=== PATIENT | male | born 1945 | race Two or more races ===

== ENCOUNTER → 2016-11-07 | Outpatient (REF) | payer BC, MEDICARE, OTHER ==
[2016-11-07 18:46] LABS: MEAN CORPUSCULAR HEMOGLOBIN 30.4 pg (27.0-33.0); MEAN CORPUSCULAR HGB CONC 31.7 g/dl (32.0-36.5); MEAN CORPUSCULAR VOLUME 95.8 fl (80.0-96.0); RED CELL DISTRIBUTION WIDTH 14.1 % (11.5-14.5); WHITE BLOOD COUNT 4.8 K/mm3 (4.0-10.0)
[2016-11-07 20:16] LABS: ALBUMIN 3.1 GM/DL (3.2-5.2); ALBUMIN/GLOBULIN RATIO 0.78 (1.00-1.93); ALKALINE PHOSPHATASE 146 U/L (45-117); ALT/SGPT 37 U/L (12-78); ANION GAP 7 MEQ/L (8-16); AST/SGOT 17 U/L (15-37); BILIRUBIN,TOTAL 0.8 MG/DL (0.2-1.0); BLOOD UREA NITROGEN 15 MG/DL (7-18); CALCIUM LEVEL 8.8 MG/DL (8.8-10.2); CARBON DIOXIDE LEVEL 30 MEQ/L (21-32); CHLORIDE LEVEL 106 MEQ/L (98-107); CHOLESTEROL LEVEL 110 MG/DL (<200); CREATININE FOR GFR 1.16 MG/DL (0.70-1.30); GLOMERULAR FILTRATION RATE > 60.0 (>42); GLUCOSE, FASTING 77 MG/DL (83-110); SODIUM LEVEL 143 MEQ/L (136-145); TOTAL PROTEIN 7.1 GM/DL (6.4-8.2); TRIGLYCERIDES LEVEL 48 MG/DL (<150)
== END ==
LOC: M SFHCLERA 11:02
PROVIDERS: ATTEND Family Medicine
DX: I10 Essential (primary) hypertension (principal)

== ENCOUNTER → 2016-11-14 | Outpatient (CLI) | payer BC, MEDICARE, OTHER ==
--- NOTE | 2016-11-14 13:32 | REP ---
SOFT-TISSUE NECK ULTRASOUND: 11/14/2016 CLINICAL HISTORY: Enlarged lymph nodes in the submandibular and anterior cervical region, left greater than right. Pain radiating up to the ear. Chronic smoking history. No prior study. FINDINGS: In the left neck, there is a finding 1.4 x 0.7 x 0.5 cm representing a node. On the right, there is a 2.1 x 1 x 0.4 cm lymph node. Left thyroid lobe adjacent to this lymph node shows a solid nodule 12 x 11 x 8 mm and a cystic nodule 5 x 4 mm. In the lower pole is another 6 x 5 x 4 mm nodule. IMPRESSION: 1. One enlarged node anteriorly in the right 2.1 x 1 x 0.4 cm and on the left 1.4 x 0.7 x 0.5 cm. 2. Incidental note of some solid masses and a small cystic area in the left lobe of the thyroid. Suggest thyroid ultrasound for further evaluation if not done previously. There are no other studies here. Signed by Bulmaro Roland MD 11/14/2016 05:44 P
== END ==
LOC: M LRY 09:07
PROVIDERS: ATTEND Family Medicine
DX: E04.1 Nontoxic single thyroid nodule (principal); R59.9 Enlarged lymph nodes, unspecified; I10 Essential (primary) hypertension

== ENCOUNTER → 2016-12-28 | Outpatient (CLI) | payer BC, OTHER | LOC: M LRY 11:09 | PROVIDERS: ATTEND Family Medicine | DX: R93.8 Abnormal findings on diagnostic imaging of other specified body structures (principal) ==

== ENCOUNTER → 2017-01-02 | Outpatient (CLI) | payer BC, OTHER | LOC: M RAD 09:36 | PROVIDERS: ATTEND Family Medicine | DX: K46.9 Unspecified abdominal hernia without obstruction or gangrene (principal); K86.2 Cyst of pancreas; K40.20 Bilateral inguinal hernia, without obstruction or gangrene, not specified as recurrent ==

== ENCOUNTER → 2017-01-04 | Outpatient (CLI) | payer BC, OTHER | LOC: M RAD 08:32 | PROVIDERS: ATTEND Family Medicine | DX: Z12.2 Encounter for screening for malignant neoplasm of respiratory organs (principal); F17.210 Nicotine dependence, cigarettes, uncomplicated; R91.1 Solitary pulmonary nodule ==

== ENCOUNTER 2017-05-21 10:52 | Inpatient (IN) | payer BC, OTHER ==
[~2017-05-21] VITALS: Ht 177.8 cm; Wt 73.7 kg
[2017-05-21] MEDS ORDERED: CREO12CA PO (11:04)
[2017-05-21] MEDS ORDERED: INSULANT SQ (11:04)
[2017-05-21] MEDS ORDERED: MULT1CHW39 PO (11:04)
[2017-05-21] MEDS ORDERED: PRAV20TA2 PO (11:04)
[2017-05-21] MEDS ORDERED: ASPI81TA18 PO (11:04)
[2017-05-21] MEDS ORDERED: HYDR-3713 PO (11:04)
[2017-05-21] MEDS ORDERED: ALPR0.25 PO (11:04)
[2017-05-21] MEDS ORDERED: POTA20TA6 PO (11:04)
[2017-05-21] MEDS ORDERED: LISINOPRIL-HCTZ (11:04)
[2017-05-21] MEDS ORDERED: TYLE325C PO (11:08)
[2017-05-21] MEDS ORDERED: ACETAMINOPHEN TAB 650MG DOSE (2X325MG) PO ONE (12:30)
[2017-05-21] MEDS ORDERED: TYLE325T5 PO (12:33)
--- NOTE | 2017-05-21 12:34 | REP ---
PORTABLE CHEST X-RAY: Single view. HISTORY: Altered mental status. Comparison is made with chest CT from January 04, 2017. FINDINGS: There is a calcified granuloma in the left mid lung zone unchanged. Lungs are otherwise well inflated and free of infiltrate. Left hemidiaphragm is slightly elevated. Pleural angles are sharp. Heart is not felt to be enlarged. IMPRESSION: Old granuloma on the left. No active disease. Signed by David Dimas MD 05/21/2017 02:47 P
[2017-05-21 12:53] LABS: ADD MANUAL DIFFER YES; DIFF SLIDE NUMBER 185; MEAN CORPUSCULAR HEMOGLOBIN 31.3 pg (27.0-33.0); MEAN CORPUSCULAR HGB CONC 33.8 g/dl (32.0-36.5); MEAN CORPUSCULAR VOLUME 92.6 fl (80.0-96.0); RED CELL DISTRIBUTION WIDTH 13.8 % (11.5-14.5)
[2017-05-21 13:05] LABS: ALBUMIN 2.8 GM/DL (3.2-5.2); ALBUMIN/GLOBULIN RATIO 0.67 (1.00-1.93); ALKALINE PHOSPHATASE 105 U/L (45-117); ALT/SGPT 29 U/L (12-78); ANION GAP 6 MEQ/L (8-16); AST/SGOT 18 U/L (15-37); BILIRUBIN,DIRECT 0.5 MG/DL (0.0-0.2); BILIRUBIN,TOTAL 1.5 MG/DL (0.2-1.0); BLOOD UREA NITROGEN 36 MG/DL (7-18); CALCIUM LEVEL 8.5 MG/DL (8.8-10.2); CARBON DIOXIDE LEVEL 28 MEQ/L (21-32); CHLORIDE LEVEL 104 MEQ/L (98-107); CREATININE FOR GFR 1.48 MG/DL (0.70-1.30); GLUCOSE, FASTING 236 MG/DL (83-110); POTASSIUM SERUM 4.1 MEQ/L (3.5-5.1); SODIUM LEVEL 138 MEQ/L (136-145)
[2017-05-21] MEDS ORDERED: NS 1,000 ML IV SCH (13:12)
[2017-05-21 13:24] LABS: PLATELET COUNT, AUTOMATED 54 k/mm3 (150-450)
[2017-05-21 13:26] LABS: BANDS 1 % (< 11)
[2017-05-21] MEDS ORDERED: ACET50TAOT PO (14:39)
[2017-05-21] MEDS ORDERED: MULT1TAB28 PO (14:43)
[2017-05-21] MEDS ORDERED: LISI20TA PO (14:46)
[2017-05-21] MEDS ORDERED: ADVA115A INH (14:48)
[2017-05-21] MEDS ORDERED: VITA10006 PO (14:48)
[2017-05-21] MEDS ORDERED: ALBU17IN INH (14:48)
[2017-05-21] MEDS ORDERED: GLUCAGON FOR INJ 1 MG VIAL (J1610) SC PRN (16:45)
[2017-05-21] MEDS ORDERED: DEXTROSE 50% 50 ML SYRINGE IV PRN (16:45)
[2017-05-21] MEDS ORDERED: ONDANSETRON 4MG/2ML VIAL (J2405) IV PRN (16:45)
[2017-05-21] MEDS ORDERED: ALBUTEROL 90 MCG/ACT 8GM HFA INHALER INH PRN (16:45)
[2017-05-21] MEDS ORDERED: GLUCOSE 4 GM CHEW TABLET PO PRN (16:45)
[2017-05-21] MEDS ORDERED: ADVAIR HFA 115/21MCG INHALER INH PRN (16:45)
[2017-05-21] MEDS ORDERED: NORCO, ANEXSIA 5/325MG TABLET (HYDROcodone/ACETAMINOPHEN) PO PRN (16:45)
[2017-05-21] MEDS ORDERED: ALPRAZolam 0.25 MG TAB PO PRN (16:45)
[2017-05-21] MEDS ORDERED: NICOTINE 21MG/24HR 1 EA TRANSDERMAL TD ONE (16:45)
[2017-05-21] MEDS ORDERED: ISOVUE-370 76% 100ML VIAL (Q9967) As Ordered ONE (16:49)
[2017-05-21 17:23] LABS: INR 1.33
[2017-05-21 17:27] LABS: CONTROL LINE INT CTR LINE PRESENT; HIV SCRN NEGATIVE (NEGATIVE); HIV SCRN1 NEGATIVE (NEGATIVE)
[2017-05-21] MEDS: HumaLOG INSULIN (NovoLOG) PER UNIT SC SCH ×2 (17:30→21:00)
[2017-05-21 17:38] LABS: REASON FOR REVIEW COMPREHENSIVE REVIEW
--- NOTE | 2017-05-21 17:49 | REP ---
CT abdomen and pelvis with IV, but without oral contrast: History: History of pancreatitis. Elevated bilirubin. CT contrast dose: 100 ml of intravenous Isovue 370. No comparison CT study. Findings: The lung bases are clear. There is no evidence of pleural effusion or upper abdominal ascites. The spleen is enlarged measuring 15.7 cm in greatest dimension. It is homogeneous in texture. The liver is not enlarged. There is some mild intrahepatic biliary ductal dilation. The common bile duct is dilated measuring up to 13 mm in greatest diameter. Pancreatic head and body are somewhat prominent in size with multiple calcifications consistent with chronic pancreatitis. No pancreatic mass lesion is seen. The pancreatic tail appears to be atrophic. There are numerous venous collaterals in the left upper quadrant consistent with portal hypertension. The portal vein itself is somewhat dilated also consistent with portal hypertension. It measures 2.3 cm in AP dimension. There is left adrenal hyperplasia. No definite mass lesion is seen. There are collateral vessels in the periaortic fat as well. No adenopathy is seen. Small and large intestinal bowel loops are unremarkable. A normal appendix is seen. There is a right inguinal hernia, which transmits the anterolateral aspect of the bladder. The prostate is moderately enlarged and calcific. There is a 6.6 cm simple cyst in the left kidney. The kidneys are otherwise unremarkable. No bony destructive lesion is seen. Impression: 1. Evidence of chronic pancreatitis with multiple calcifications and mild enlargement of the pancreatic head. Atrophy of the pancreatic tail. No pseudocyst or obvious mass lesion. 2. 13 mm common bile duct post cholecystectomy consistent with mild biliary ductal dilation. 3. Evidence of portal hypertension with splenomegaly and prominent left upper quadrant venous collaterals, and dilation of the portal vein. 4. Left adrenal hyperplasia. 5. 6.6 cm cyst left kidney. 6. Right inguinal hernia transmitting the anterolateral aspect of the urinary bladder. Signed by David Dimas MD 05/21/2017 06:40 P
--- NOTE | 2017-05-21 18:00 | REP ---
Urinary tract sonography: History: Acute kidney insufficiency. Comparison study: January 02, 2017. Findings: Scanning at the level of the urinary bladder demonstrates a prominent prostate gland. No bladder abnormality. Renal cortical echogenicity pattern is increased consistent with chronic medical renal disease. No hydronephrosis or mass is seen. There is a 6.5 x 6.2 x 7.0 cm cyst in the periphery of the left mid kidney. The left kidney measures 12.4 x 5.2 x 5.1 cm, exclusive of the cyst. Right renal dimensions are 10.5 x 4.7 x 5.1 cm. Impression: Increased renal cortical echogenicity pattern consistent with medical renal disease. 7.0 cm cyst left kidney. Enlarged prostate. No hydronephrosis seen. Otherwise negative. Signed by David Dimas MD 05/21/2017 06:40 P
[2017-05-21] MEDS: ACETAMINOPHEN TAB 650MG DOSE (2X325MG) PO PRN (18:41)
[2017-05-21] MEDS: CREON-12 CAPSULE PO SCH (19:22)
[2017-05-21] MEDS: NS 1,000 ML IV SCH ×2 (20:57→23:25)
[2017-05-21] MEDS: LEVEMIR (INSULIN DETEMIR) 1 UNITS/0.01ML SQ SCH (21:00)
[2017-05-21 22:00] VITALS: BP 136/76
[2017-05-21] MEDS: ASCORBIC ACID 500 MG TAB PO SCH (22:06)
[2017-05-21] MEDS: OCUVITE 1 TAB PO SCH (22:06)
[2017-05-21] MEDS: SENOKOT S TAB PO SCH (22:06)
[2017-05-21 23:08] LABS: REASON FOR REVIEW COMPREHENSIVE REVIEW
[2017-05-22 06:00] VITALS: BP 165/71
[2017-05-22 07:06] LABS: MEAN CORPUSCULAR HEMOGLOBIN 32.1 pg (27.0-33.0); MEAN CORPUSCULAR HGB CONC 34.7 g/dl (32.0-36.5); MEAN CORPUSCULAR VOLUME 92.4 fl (80.0-96.0); RED CELL DISTRIBUTION WIDTH 13.6 % (11.5-14.5); WHITE BLOOD COUNT 4.1 K/mm3 (4.0-10.0)
[2017-05-22 07:23] LABS: ALBUMIN 2.5 GM/DL (3.2-5.2); ALBUMIN/GLOBULIN RATIO 0.69 (1.00-1.93); ALKALINE PHOSPHATASE 108 U/L (45-117); ALT/SGPT 29 U/L (12-78); ANION GAP 6 MEQ/L (8-16); AST/SGOT 23 U/L (15-37); BILIRUBIN,TOTAL 1.4 MG/DL (0.2-1.0); BLOOD UREA NITROGEN 32 MG/DL (7-18); CALCIUM LEVEL 7.9 MG/DL (8.8-10.2); CARBON DIOXIDE LEVEL 30 MEQ/L (21-32); CHLORIDE LEVEL 105 MEQ/L (98-107); CREATININE FOR GFR 1.24 MG/DL (0.70-1.30); GLOMERULAR FILTRATION RATE > 60.0 (>42); GLUCOSE, FASTING 173 MG/DL (83-110); MAGNESIUM LEVEL 2.2 MG/DL (1.8-2.4); SODIUM LEVEL 141 MEQ/L (136-145); TOTAL PROTEIN 6.1 GM/DL (6.4-8.2)
[2017-05-22] MEDS: HumaLOG INSULIN (NovoLOG) PER UNIT SC SCH ×4 (07:30→21:00)
--- NOTE | 2017-05-22 07:42 | HPE ---
DATE OF ADMISSION: 05/22/2017 PRIMARY CARE PROVIDER: Dr. Shaun Knight CHIEF COMPLAINT: Fevers and rigors. HISTORY OF PRESENT ILLNESS: This is a 71-year-old male patient with underlying medical history of dyslipidemia, hypertension, diabetes type 2 and chronic pancreatitis who presented to the hospital with rigors and chills since Sunday with high fevers at home. He denies any chest pain, pressure or discomfort. No dysuria, coughing, or shortness of breath. Denies any rash, abdominal pain, nausea or vomiting, no diarrhea. No source of infection. He does report one of the family members with a upper respiratory infection (URI). The patient is an active smoker. ALLERGIES: CODEINE. PAST MEDICAL HISTORY: 1. Hypertension. 2. Dyslipidemia. 3. Diabetes. 4. Chronic pancreatitis with pancreatic pseudocyst and calcifications. 5. Multiple abdominal surgeries in the past 2007. PAST SURGICAL HISTORY: 1. Cholecystectomy. 2. Tonsillectomy. 3. Abdominal surgery due to pancreatitis. FAMILY HISTORY: Noncontributory. SOCIAL HISTORY: The patient smokes 1-1/2 packs of cigarettes per day for 50 years. Denies alcohol drinking. REVIEW OF SYSTEMS: Report of fevers and rigors. All other review of systems negative. HOME MEDICATIONS: - acetaminophen 500 mg by mouth every 6 hours as needed - acetaminophen hydrocodone one tablet by mouth every 12 hours taken as needed - Ventolin inhalers every 4 hours as needed - Xanax 0.25 1/2 tablet by mouth daily taken as needed - vitamin C 1000 mg by mouth daily - aspirin 81 mg by mouth daily - Lantus 30 mg subcutaneous every evening - lisinopril hydrochlorothiazide 20/12.5 mg by mouth daily - multivitamin one tablet by mouth daily - pancreatic enzyme 24,000 units by mouth as directed - potassium chloride 20 mEq by mouth daily with food - pravastatin 20 mg by mouth every evening - Advair inhaler twice a day as needed PHYSICAL EXAMINATION: VITAL SIGNS: Temperature maximum (T-max) 104, temperature current (T-current) 100.2, pulse 88, respirations 18, blood pressure 127/74, pulse oximetry 96% on room air. GENERAL: The patient is awake, alert and oriented times three. No acute distress. HEENT: Normocephalic atraumatic. PULMONARY: Bilaterally clear to auscultation. CARDIAC: Regular rate and rhythm, normal S1, S2. ABDOMEN: Soft, nontender, nondistended, positive bowel sounds. EXTREMITIES: No clubbing, cyanosis or edema. NEUROLOGIC: There is no focal deficit. LABORATORY DATA: WBC 5, hemoglobin 15.2, hematocrit 44.8, platelets 54. Sodium 138, potassium 4.1, chloride 104, bicarbonate 28, BUN 36, creatinine 1.48. A1c 8.1. Cardiac enzymes are negative times three. Ammonia 46. Total bilirubin 1.5, INR 1.33. AST, ALT and alkaline phosphatase was within normal limits. ASSESSMENT AND PLAN: This is a 71-year-old male patient with underlying medical history of chronic pancreatitis, hypertension, diabetes, dyslipidemia, chronic kidney disease (CKD), admitted with fevers and rigors. PROBLEMS: 1. Fevers and rigors. The patient is nontoxic appearing with stable vital signs. HIV has been negative. f/u respiratory panel Chest x-ray was within normal limits. CT of the abdomen was within normal limits, with no transaminitis. Will followup cultures. Will hold off on antibiotics given no source of infection has been detected. Likely viral illness. Intravenous (IV) fluids have been given. Respiratory panel. 2. Thrombocytopenia possibly related to chronic diseases. LDH was within normal limits. Followup haptoglobin. Although the patient denies alcohol use, this patient's history is strongly suspicious. Will follow peripheral smear. 3. Elevated bilirubin with no transaminitis. Will followup right upper quadrant ultrasound. CT scan is appreciated. The patient has history of cholecystectomy. Will continue to monitor. IV fluids have been ordered. 4. Chronic kidney disease (CKD): Followup renal ultrasound appreciated. No obstructive process. Urinalysis appreciated. IV fluids have been ordered. 5. Diabetes. Continue prior medications. 6. Chronic pancreatitis. Continue current medications. 7. Diabetes. Holding oral medications. Levemir at reduced dose. Mealtime protocol. 8. Smoking. Nicotine patch. Smoking cessation recommended. 9. Chronic pulmonary obstructive disease (COPD). Continue current medication. 10. Anxiety. Continue current medication. 11. Dyslipidemia. Continue current medication. 12. Deep venous thrombosis (DVT) prophylaxis. Venous compression device, avoid pharmacological agent given the patient is thrombocytopenic. DISPOSITION: Will continue to monitor pending further workup. [facility]
[2017-05-22] MEDS ORDERED: KETOROLAC 30 MG/ML VIAL (J1885) IV PRN (07:45)
[2017-05-22] MEDS: CREON-12 CAPSULE PO SCH ×4 (08:00→23:33)
[2017-05-22] MEDS: POTASSIUM CHLORIDE 10 MEQ SR TABLET PO SCH (09:21)
[2017-05-22] MEDS: SENOKOT S TAB PO SCH ×2 (09:21→21:18)
[2017-05-22] MEDS: OCUVITE 1 TAB PO SCH (09:22)
[2017-05-22] MEDS: ASCORBIC ACID 500 MG TAB PO SCH (09:22)
--- NOTE | 2017-05-22 09:33 | ECGEPIP ---
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
[2017-05-22] MEDS: PIPERACILLIN/TAZOBACTAM SOD 3.375 GM in D5W MINI-BAG PLUS 50 ML IV SCH ×3 (09:40→21:14)
--- NOTE | 2017-05-22 10:25 | REP ---
Right upper quadrant sonography: History: Right upper quadrant pain. Elevated bilirubin. Post cholecystectomy. Comparison CT study May 21, 2017. Findings: Scanning through the right upper quadrant of the abdomen demonstrates no visible intrahepatic ductal dilation. The pancreas is obscured by abdominal gas. The common bile duct is near the upper range of normal post cholecystectomy at 0.9 cm by ultrasound. No focal liver lesion is seen. There is a focal calcification in the right hepatic lobe. There is no evidence of ascites or right renal abnormality. The right kidney measures 10.6 x 4.7 x 4.9 cm. Some renal cortical thinning is seen. Impression: Pancreas not seen. Post cholecystectomy. CBD 9 mm which is the upper range of normal. Mild right renal cortical atrophy. Signed by David Dimas MD 05/22/2017 12:14 P
[2017-05-22] MEDS: NS 1,000 ML IV SCH ×3 (11:21→23:05)
[2017-05-22 15:15] VITALS: BP 143/72
--- NOTE | 2017-05-22 17:12 | IPN ---
DATE: 05/22/2017 Mr. Gar is having shaking chills. When I see him this morning, he has no complaints of pain. No cough, no abdominal pain, no dysuria, no diarrhea. Temperature 97.9, pulse 61, respiratory rate 18, blood pressure 165/71, 99% on room air. Body mass index (BMI) 23.4. He is awake, appropriately interactive, pleasantly conversant, a good historian. He shares with me the name of his previous primary care provider in [place]. Mucous membranes moist. Neck: Supple. Breathing is symmetrical. I:E ratio is 1:3. No wheezes, rales or rhonchi. Heart is distant sounding. Normal S1, S2. He is not tachycardic. Pulses 2+. Capillary refill is less than 2 seconds. He is warm to the touch. Abdomen: Soft, doughy, nontender. White cell count 4.1, hemoglobin 14.5, BUN 32, creatinine 1.24. Blood cultures were preliminarily positive for gram-negative rods. My assessment is as follows: This is a 71-year-old with suspected gram-negative bacteremia. Plan will be as follows: 1. Infectious disease. Will await further blood culture results. We have started the patient on Zosyn empirically. He apparently had a similar episode in the past. He has been seen an infectious disease doctor. I have asked for old records from [place]. He has no history of recent foreign travel. 2. History of hypertension. Blood pressure is reasonably well controlled at the present time. 3. The patient has dyslipidemia. 4. The patient has a history of diabetes. 5. The patient has chronic pancreatitis with pancreatic pseudocyst and calcification. Imaging shows no evidence of active pancreatitis or abscess. Physical exam is benign.
[2017-05-22] MEDS: LEVEMIR (INSULIN DETEMIR) 1 UNITS/0.01ML SQ SCH (21:00)
[2017-05-22] MEDS: PRAVASTATIN 20 MG TAB PO SCH (21:17)
[2017-05-22 22:00] VITALS: BP 139/65
[2017-05-23] MEDS: PIPERACILLIN/TAZOBACTAM SOD 3.375 GM in D5W MINI-BAG PLUS 50 ML IV SCH ×4 (02:22→20:11)
[2017-05-23 06:00] VITALS: BP 164/81
[2017-05-23] MEDS: ACETAMINOPHEN TAB 650MG DOSE (2X325MG) PO PRN (06:47)
[2017-05-23 07:23] LABS: MEAN CORPUSCULAR HEMOGLOBIN 31.5 pg (27.0-33.0); MEAN CORPUSCULAR VOLUME 92.7 fl (80.0-96.0); RED CELL DISTRIBUTION WIDTH 14.2 % (11.5-14.5)
[2017-05-23] MEDS: HumaLOG INSULIN (NovoLOG) PER UNIT SC SCH ×4 (07:30→21:53)
[2017-05-23 07:35] LABS: ALBUMIN 2.3 GM/DL (3.2-5.2); ALBUMIN/GLOBULIN RATIO 0.61 (1.00-1.93); ALKALINE PHOSPHATASE 143 U/L (45-117); ALT/SGPT 28 U/L (12-78); ANION GAP 3 MEQ/L (8-16); AST/SGOT 26 U/L (15-37); BLOOD UREA NITROGEN 26 MG/DL (7-18); CALCIUM LEVEL 7.7 MG/DL (8.8-10.2); CARBON DIOXIDE LEVEL 32 MEQ/L (21-32); CHLORIDE LEVEL 109 MEQ/L (98-107); CREATININE FOR GFR 1.08 MG/DL (0.70-1.30); GLOMERULAR FILTRATION RATE > 60.0 (>42); GLUCOSE, FASTING 85 MG/DL (83-110); MAGNESIUM LEVEL 2.3 MG/DL (1.8-2.4); POTASSIUM SERUM 3.4 MEQ/L (3.5-5.1); SODIUM LEVEL 144 MEQ/L (136-145); TOTAL PROTEIN 6.1 GM/DL (6.4-8.2)
[2017-05-23] MEDS: CREON-12 CAPSULE PO SCH ×3 (08:01→18:20)
[2017-05-23] MEDS: OCUVITE 1 TAB PO SCH (08:18)
[2017-05-23] MEDS: SENOKOT S TAB PO SCH ×2 (08:18→21:50)
[2017-05-23] MEDS: POTASSIUM CHLORIDE 10 MEQ SR TABLET PO SCH (08:18)
--- NOTE | 2017-05-23 08:18 | IPN ---
DATE: 05/23/2017 Mr. Gar is feeling much better than he did yesterday. No rigors or chills. He felt better after receiving Zosyn. No chest pain or shortness of breath. He says he has never had a colonoscopy. Temperature 99.1. Pulse 62. Respiratory rate 18. Blood pressure 164/81. 99% on room air. Ins and outs notable for a positive fluid balance of 1220. No bowel movements noted. Weight 74.2 kg. He is awake, appropriately interactive. Pleasantly conversant. Head is normocephalic. Mucous membranes are moist. Poor dentition. Neck supple. Breathing is symmetrical. I:E ratio is 1:3. Heart is a regular rate and rhythm. Normal S1, S2. Abdomen soft, doughy, nontender, with some prominence of his liver. No lower extremity edema. White cell count 3, hemoglobin 12.9, and platelets 46. Sodium 144, potassium 3.4, chloride 109, carbon dioxide 32, BUN 26, creatinine 1.08, glucose 85, magnesium level 2.3, total bilirubin 1.0. ASSESSMENT: This is a 71-year-old with suspected gram negative bacteremia. PLAN: 1. Infectious disease. Awaiting speciation on blood culture. Only 1 of 2 cultures is positive. He has improved symptomatically with the use of Zosyn. Have yet to receive old records from [place]. I have discussed this with the nursing staff today to attempt to obtain those today for further information about previous workups. He is also noted to have pancytopenia which is likely reactive based on the pathology results. 2. The patient has history of hypertension. Blood pressure is reasonably controlled. 3. The patient has acute renal failure which has resolved. 4. The patient has dyslipidemia. 5. The patient has history of diabetes. 6. The patient has chronic pancreatitis with pancreatic pseudocyst and calcification. Abdominal exam continues to be benign. 7. Deep vein thrombosis (DVT) prophylaxis, mechanical.
[2017-05-23] MEDS: ASCORBIC ACID 500 MG TAB PO SCH (08:19)
[2017-05-23] MEDS: NICOTINE 21MG/24HR 1 EA TRANSDERMAL TD SCH (09:38)
[2017-05-23] MEDS ORDERED: POTASSIUM CHLORIDE 10 MEQ SR TABLET PO ONE (12:00)
[2017-05-23 14:00] VITALS: BP 158/74
[2017-05-23] MEDS: LEVEMIR (INSULIN DETEMIR) 1 UNITS/0.01ML SQ SCH (21:00)
[2017-05-23] MEDS: PRAVASTATIN 20 MG TAB PO SCH (21:50)
[2017-05-23 22:00] VITALS: BP 154/89
[2017-05-23] MEDS ORDERED: ALPRAZolam 0.25 MG TAB PO PRN (23:15)
[2017-05-24] MEDS: PIPERACILLIN/TAZOBACTAM SOD 3.375 GM in D5W MINI-BAG PLUS 50 ML IV SCH ×2 (02:59→08:20)
[2017-05-24 06:00] VITALS: BP 165/86
[2017-05-24 06:47] LABS: MEAN CORPUSCULAR HEMOGLOBIN 31.5 pg (27.0-33.0); MEAN CORPUSCULAR HGB CONC 33.8 g/dl (32.0-36.5); MEAN CORPUSCULAR VOLUME 93.2 fl (80.0-96.0); RED CELL DISTRIBUTION WIDTH 13.8 % (11.5-14.5); WHITE BLOOD COUNT 2.8 K/mm3 (4.0-10.0)
[2017-05-24 07:01] LABS: ALBUMIN 2.2 GM/DL (3.2-5.2); ALBUMIN/GLOBULIN RATIO 0.52 (1.00-1.93); ALKALINE PHOSPHATASE 185 U/L (45-117); ALT/SGPT 30 U/L (12-78); ANION GAP 7 MEQ/L (8-16); AST/SGOT 20 U/L (15-37); BILIRUBIN,TOTAL 0.8 MG/DL (0.2-1.0); BLOOD UREA NITROGEN 16 MG/DL (7-18); CALCIUM LEVEL 7.6 MG/DL (8.8-10.2); CARBON DIOXIDE LEVEL 29 MEQ/L (21-32); CHLORIDE LEVEL 108 MEQ/L (98-107); CREATININE FOR GFR 0.99 MG/DL (0.70-1.30); GLOMERULAR FILTRATION RATE > 60.0 (>42); GLUCOSE, FASTING 178 MG/DL (83-110); POTASSIUM SERUM 3.8 MEQ/L (3.5-5.1); SODIUM LEVEL 144 MEQ/L (136-145); TOTAL PROTEIN 6.4 GM/DL (6.4-8.2)
[2017-05-24] MEDS: ASCORBIC ACID 500 MG TAB PO SCH (08:20)
[2017-05-24] MEDS: CREON-12 CAPSULE PO SCH (08:20)
[2017-05-24] MEDS: HumaLOG INSULIN (NovoLOG) PER UNIT SC SCH (08:20)
[2017-05-24] MEDS: OCUVITE 1 TAB PO SCH (08:20)
[2017-05-24] MEDS: NICOTINE 21MG/24HR 1 EA TRANSDERMAL TD SCH (08:20)
[2017-05-24] MEDS: POTASSIUM CHLORIDE 10 MEQ SR TABLET PO SCH (08:21)
[2017-05-24] MEDS: SENOKOT S TAB PO SCH (08:21)
[2017-05-24] MEDS ORDERED: LEVA1TAB2 PO (09:57)
[2017-05-24] MEDS ORDERED: NICO21PAT TD (09:57)
[2017-05-24 14:00] VITALS: BP 134/70
--- NOTE | 2017-05-28 16:28 | DSES ---
DATE OF ADMISSION: 05/21/2017 DATE OF DISCHARGE: 05/24/2017 There were no specialists involved in the care. No complications. There were no procedure performed during the stay. DISCHARGE DIAGNOSES: 1. Hypertension. 2. Acute renal failure. 3. Dyslipidemia. 4. Diabetes. 5. Chronic pancreatitis. 6. Pancreatic pseudocysts. 7. Klebsiella pneumoniae. 8. Bacteremia. HISTORY OF PRESENT ILLNESS: This is a 71-year-old who presented with fevers and rigors. No obvious source of infection. He has had previous history of similar events. Does have a history of chronic pancreatitis and pancreatic pseudocysts with calcifications, as well as diabetes. Imaging done during the stay did not show evidence of pancreatitis or abdominal source of infection. He improved markedly with the use of antibiotics during his stay. Blood cultures did grow Staphylococcus capitis, which is likely a contaminant, as well as Klebsiella pneumoniae, which is likely what was causing his problems, that was relatively pansensitive with resistance only to ampicillin. He improved markedly. We waited for speciation. On the day of discharge, temperature 98.9, pulse 61, respiratory rate 20, blood pressure 134/70, 98% on room air. He is awake, appropriately interactive, pleasantly conversant. White cell count 2.8, hemoglobin 13.2, and platelets of 50. BUN 16, creatinine 0.99. We did receive old records from [facility], which were not particularly helpful during this stay but did not shed light on any undiscovered other conditions that we were unaware of. DISCHARGE INSTRUCTIONS: Include the following: Followup with Dr. Dunn within 1 week. Diet and activity as tolerated. Continue with Levaquin 500 mg by mouth daily for seven doses. Nicotine transdermal patch daily. Tylenol as needed for pain. [place] as needed for pain. Albuterol two puffs every 4 hours as needed for shortness of breath. Xanax 0.125 mg daily as needed for anxiety. Vitamin C supplement daily. Aspirin 81 mg by mouth daily. Lantus 30 units subcutaneously daily at bedtime. Lisinopril/hydrochlorothiazide one tablet by mouth daily. Multivitamin tablet daily. Creon at home dosing. Potassium chloride 20 mEq by mouth at home dosing. Pravastatin 20 mg by mouth daily at bedtime. Advair two puffs inhaled twice daily as needed, the 115/21 dose.
== END 2017-05-24 11:40 | disposition home or self-care (01) | DRG 724 ==
LOC: EDBD 10:52 → M ED 10:52 → M ED INP 16:43 → M MS5PR 20:30
PROVIDERS: ADMIT Hospitalist; ATTEND Internal Medicine
DX: A49.8 Other bacterial infections of unspecified site (principal); N17.9 Acute kidney failure, unspecified; D61.818 Other pancytopenia; K86.3 Pseudocyst of pancreas; R78.81 Bacteremia; D69.6 Thrombocytopenia, unspecified; K86.1 Other chronic pancreatitis; E11.9 Type 2 diabetes mellitus without complications; E78.5 Hyperlipidemia, unspecified; Z79.899 Other long term (current) drug therapy; F17.210 Nicotine dependence, cigarettes, uncomplicated; Z88.5 Allergy status to narcotic agent; Z79.82 Long term (current) use of aspirin; N18.9 Chronic kidney disease, unspecified; F41.9 Anxiety disorder, unspecified

== ENCOUNTER → 2017-06-04 | Outpatient (REF) | payer BC, OTHER ==
[~2017-06-04] MED LIST: ACET50TAOT PO; ADVA115A INH; ALBU17IN INH; ALPR0.25 PO; ASPI81TA18 PO; CREO12CA PO; HYDR-3713 PO; INSULANT SQ; LEVA1TAB2 PO; LISI20TA PO; LISINOPRIL-HCTZ; MULT1CHW39 PO; MULT1TAB28 PO; NICO21PAT TD; POTA20TA6 PO; PRAV20TA2 PO; TYLE325C PO; TYLE325T5 PO; VITA10006 PO
[2017-06-04 11:53] LABS: MEAN CORPUSCULAR HGB CONC 32.9 g/dl (32.0-36.5); MEAN CORPUSCULAR VOLUME 97.5 fl (80.0-96.0); RED CELL DISTRIBUTION WIDTH 13.2 % (11.5-14.5); WHITE BLOOD COUNT 3.6 K/mm3 (4.0-10.0)
[2017-06-04 12:19] LABS: ALBUMIN 2.9 GM/DL (3.2-5.2); ALBUMIN/GLOBULIN RATIO 0.63 (1.00-1.93); BILIRUBIN,TOTAL 0.6 MG/DL (0.2-1.0); CALCIUM LEVEL 8.6 MG/DL (8.8-10.2); CREATININE FOR GFR 1.27 MG/DL (0.70-1.30); GLOMERULAR FILTRATION RATE 59.7 (>42); POTASSIUM SERUM 4.7 MEQ/L (3.5-5.1); TOTAL PROTEIN 7.5 GM/DL (6.4-8.2)
== END ==
LOC: M SFHCLERA 09:31
PROVIDERS: ATTEND Family Medicine
DX: A41.9 Sepsis, unspecified organism (principal); R39.89 Other symptoms and signs involving the genitourinary system

== ENCOUNTER → 2017-06-18 | Outpatient (REF) | payer BC, OTHER | LOC: M LAB REF 11:48 | PROVIDERS: ATTEND Internal Medicine Endocrinology, Diabetes & Metabolism | DX: D44.0 Neoplasm of uncertain behavior of thyroid gland (principal) ==

== ENCOUNTER → 2017-08-23 | Outpatient (REF) | payer BC, OTHER | LOC: M SMT 17:09 | PROVIDERS: ATTEND Nurse Practitioner Women's Health | DX: R31.29 Other microscopic hematuria (principal) ==

== ENCOUNTER → 2017-08-23 | Outpatient (REF) | payer BC, OTHER | LOC: M LAB REF 14:31 | PROVIDERS: ATTEND Internal Medicine Endocrinology, Diabetes & Metabolism | DX: E04.1 Nontoxic single thyroid nodule (principal) ==

== ENCOUNTER → 2017-08-27 | Outpatient (REF) | payer BC, OTHER ==
[2017-08-27 11:26] LABS: MEAN CORPUSCULAR HEMOGLOBIN 30.7 pg (27.0-33.0); MEAN CORPUSCULAR HGB CONC 33.5 g/dl (32.0-36.5); MEAN CORPUSCULAR VOLUME 91.6 fl (80.0-96.0); RED CELL DISTRIBUTION WIDTH 13.8 % (11.5-14.5); WHITE BLOOD COUNT 3.6 10^3/uL (4.0-10.0)
[2017-08-27 11:47] LABS: ALBUMIN 3.1 GM/DL (3.2-5.2); ALBUMIN/GLOBULIN RATIO 0.72 (1.00-1.93); ALKALINE PHOSPHATASE 115 U/L (45-117); ALT/SGPT 33 U/L (12-78); ANION GAP 3 MEQ/L (8-16); AST/SGOT 15 U/L (7-37); BILIRUBIN,TOTAL 0.6 MG/DL (0.2-1.0); BLOOD UREA NITROGEN 19 MG/DL (7-18); CALCIUM LEVEL 9.1 MG/DL (8.8-10.2); CARBON DIOXIDE LEVEL 33 MEQ/L (21-32); CHLORIDE LEVEL 102 MEQ/L (98-107); CREATININE FOR GFR 1.07 MG/DL (0.70-1.30); GLOMERULAR FILTRATION RATE > 60.0 (>42); GLUCOSE, FASTING 331 MG/DL (83-110); POTASSIUM SERUM 4.3 MEQ/L (3.5-5.1); SODIUM LEVEL 138 MEQ/L (136-145); TOTAL PROTEIN 7.4 GM/DL (6.4-8.2)
[2017-08-27 12:00] LABS: PLATELET COUNT, AUTOMATED 75 10^3/uL (150-450)
[2017-08-27 12:02] LABS: IMMATURE PLATELET FRACTION % 12.6 % (0.0-10.9)
== END ==
LOC: M SFHCLERA 09:17
PROVIDERS: ATTEND Family Medicine
DX: E11.9 Type 2 diabetes mellitus without complications (principal); Z79.4 Long term (current) use of insulin

== ENCOUNTER → 2017-08-28 | Outpatient (CLI) | payer BC, OTHER ==
--- NOTE | 2017-08-29 08:36 | REP ---
SOFT TISSUE HEAD AND NECK ULTRASOUND: CLINICAL: Adenopathy. TECHNIQUE: Real-time cortez scale and color evaluation using linear high frequency transducer. FINDINGS: Ultrasound examination demonstrates relatively normal bilateral cervical chain lymph nodes measuring 0.7 x 2.1 x 0.8 cm along the right cervical chain and measuring 1.2 x 1.4 x 0.9 cm and 1.0 x 0.4 x 0.9 cm along the left cervical chain. Incidental small sebaceous cyst is identified along the posterior aspect of the neck which measures 8 x 8 x 4 mm. IMPRESSION: A few scattered bilateral cervical chain lymph nodes as described above essentially normal in size and appearance. Signed by Denver Jamil MD 09/02/2017 11:29 P
== END ==
LOC: M LRY 10:03
PROVIDERS: ATTEND Family Medicine
DX: R59.9 Enlarged lymph nodes, unspecified (principal)

== ENCOUNTER → 2017-09-27 | Outpatient (CLI) | payer BC, OTHER | LOC: M LRY 12:07 | DX: F17.200 Nicotine dependence, unspecified, uncomplicated (principal) | CPT/HCPCS: 71046 ==

== ENCOUNTER → 2017-09-27 | Outpatient (REF) | payer BC, OTHER ==
[2017-09-27 16:38] LABS: BASO % 0.4 % (0.0-1.0); EOS % 0.8 % (0.0-3.0); HEMATOCRIT 45.8 % (42.0-52.0); HEMOGLOBIN 15.3 g/dl (14.0-18.0); IMMATURE GRANULOCYTE % 0.2 % (0-0); LYMPH # 0.8 10^3/uL (1.5-4.5); LYMPH % 15.5 % (24.0-44.0); MEAN CORPUSCULAR HEMOGLOBIN 30.5 pg (27.0-33.0); MEAN CORPUSCULAR HGB CONC 33.4 g/dl (32.0-36.5); MEAN CORPUSCULAR VOLUME 91.4 fl (80.0-96.0); MONO # 0.2 10^3/uL (0.0-0.8); MONO % 4.2 % (0.0-5.0); NEUTROPHILS # 4.1 10^3/uL (1.8-7.7); NEUTROPHILS % 78.9 % (36.0-66.0); RED BLOOD COUNT 5.01 10^6/uL (4.30-6.10); WHITE BLOOD COUNT 5.2 10^3/uL (4.0-10.0)
[2017-09-27 16:42] LABS: ANION GAP 3 MEQ/L (8-16); BLOOD UREA NITROGEN 20 MG/DL (7-18); CALCIUM LEVEL 8.9 MG/DL (8.8-10.2); CARBON DIOXIDE LEVEL 34 MEQ/L (21-32); CHLORIDE LEVEL 105 MEQ/L (98-107); CREATININE FOR GFR 1.22 MG/DL (0.70-1.30); GLOMERULAR FILTRATION RATE > 60.0 (>42); GLUCOSE, FASTING 228 MG/DL (83-110); POTASSIUM SERUM 4.6 MEQ/L (3.5-5.1); SODIUM LEVEL 142 MEQ/L (136-145)
[2017-09-27 16:45] LABS: PROTHROMBIN TIME 15.4 SECONDS (12.4-14.5)
[2017-09-27 16:46] LABS: PARTIAL THROMBOPLASTIN TIME 33.7 SECONDS (26.8-37.9)
[2017-09-27 17:02] LABS: IMMATURE PLATELET FRACTION % 16.8 % (0.0-10.9); PLATELET COUNT, AUTOMATED 78 10^3/uL (150-450)
== END ==
LOC: M SFHCLERA 11:58
DX: D69.6 Thrombocytopenia, unspecified (principal); Z01.818 Encounter for other preprocedural examination; D49.4 Neoplasm of unspecified behavior of bladder
CPT/HCPCS: 80048

== ENCOUNTER 2017-10-05 06:19 | Emergency (ER) | payer BC, OTHER ==
[2017-10-05 07:00] LABS: APPEARANCE, URINE CLEAR (CLEAR); BACTERIA, URINE AUTO NEGATIVE (NEGATIVE); BILIRUBIN, URINE AUTO NEGATIVE (NEGATIVE); BLOOD, URINE BLOOD NEGATIVE (NEGATIVE); COLOR, URINE YELLOW (YELLOW); GLUCOSE, URINE (UA) AUTO 3+ mg/dL (NEGATIVE); KETONE, URINE AUTO NEGATIVE (NEGATIVE); LEUKOCYTE ESTERASE, URINE AUTO NEGATIVE (NEGATIVE); NITRITE, URINE AUTO NEGATIVE (NEGATIVE); PROTEIN, URINE AUTO NEGATIVE (NEGATIVE); RBC, URINE AUTO 3 /HPF (0-3); SPECIFIC GRAVITY URINE AUTO 1.015 (1.002-1.035); SQUAMOUS EPITHELIAL CELL UR AU 0 /HPF (0-6); UROBILINOGEN, URINE AUTO 0.2 mg/dL (0.0-2.0); WBC, URINE AUTO 1 /HPF (0-3)
[2017-10-05 07:26] LABS: BASO % 0.2 % (0.0-1.0); EOS # 0.1 10^3/uL (0.0-0.50); EOS % 1.5 % (0.0-3.0); HEMATOCRIT 42.3 % (42.0-52.0); HEMOGLOBIN 14.6 g/dl (14.0-18.0); LYMPH # 0.5 10^3/uL (1.5-4.5); LYMPH % 10.9 % (24.0-44.0); MEAN CORPUSCULAR HEMOGLOBIN 30.9 pg (27.0-33.0); MEAN CORPUSCULAR HGB CONC 34.5 g/dl (32.0-36.5); MEAN CORPUSCULAR VOLUME 89.6 fl (80.0-96.0); MONO # 0.2 10^3/uL (0.0-0.8); MONO % 4.9 % (0.0-5.0); NEUTROPHILS # 3.4 10^3/uL (1.8-7.7); NEUTROPHILS % 82.5 % (36.0-66.0); RED BLOOD COUNT 4.72 10^6/uL (4.30-6.10); RED CELL DISTRIBUTION WIDTH 13.5 % (11.5-14.5); WHITE BLOOD COUNT 4.1 10^3/uL (4.0-10.0)
[2017-10-05 07:29] LABS: IMMATURE PLATELET FRACTION % 9.1 % (0.0-10.9); PLATELET COUNT, AUTOMATED 71 10^3/uL (150-450); PLATELET F 61
[2017-10-05 07:57] LABS: ALKALINE PHOSPHATASE 86 U/L (45-117); ALT/SGPT 22 U/L (12-78); ANION GAP 5 MEQ/L (8-16); AST/SGOT 14 U/L (7-37); BILIRUBIN,DIRECT 0.2 MG/DL (0.0-0.2); BILIRUBIN,TOTAL 0.6 MG/DL (0.2-1.0); BLOOD UREA NITROGEN 17 MG/DL (7-18); CALCIUM LEVEL 8.6 MG/DL (8.8-10.2); CARBON DIOXIDE LEVEL 30 MEQ/L (21-32); CHLORIDE LEVEL 105 MEQ/L (98-107); CREATININE FOR GFR 1.08 MG/DL (0.70-1.30); GLOMERULAR FILTRATION RATE > 60.0 (>42); GLUCOSE, FASTING 370 MG/DL (83-110); MAGNESIUM LEVEL 2.3 MG/DL (1.8-2.4); POTASSIUM SERUM 3.7 MEQ/L (3.5-5.1); SODIUM LEVEL 140 MEQ/L (136-145); TOTAL PROTEIN 7.3 GM/DL (6.4-8.2)
== END 2017-10-05 09:41 | disposition home or self-care (01) ==
LOC: M ED 06:19
DX: R00.8 Other abnormalities of heart beat (principal); N40.1 Benign prostatic hyperplasia with lower urinary tract symptoms; E11.9 Type 2 diabetes mellitus without complications; I10 Essential (primary) hypertension; K86.1 Other chronic pancreatitis; R51 Headache; R25.1 Tremor, unspecified; F41.9 Anxiety disorder, unspecified; F17.210 Nicotine dependence, cigarettes, uncomplicated; Z79.899 Other long term (current) drug therapy; Z79.82 Long term (current) use of aspirin; Z79.1 Long term (current) use of non-steroidal anti-inflammatories (NSAID); Z79.4 Long term (current) use of insulin; Z88.5 Allergy status to narcotic agent
CPT/HCPCS: 93005

== ENCOUNTER 2017-10-08 06:40 | Day surgery (SDC) | payer BC, OTHER ==
[2017-10-08 07:05] LABS: HEMATOCRIT 44.8 % (42.0-52.0); MEAN CORPUSCULAR HEMOGLOBIN 30.4 pg (27.0-33.0); MEAN CORPUSCULAR HGB CONC 33.5 g/dl (32.0-36.5); MEAN CORPUSCULAR VOLUME 90.7 fl (80.0-96.0); RED BLOOD COUNT 4.94 10^6/uL (4.30-6.10); WHITE BLOOD COUNT 4.9 10^3/uL (4.0-10.0)
[2017-10-08 07:07] LABS: PLATELET COUNT, AUTOMATED 76 10^3/uL (150-450); POS COUNT POS FLAG
[2017-10-08 07:08] LABS: IMMATURE PLATELET FRACTION % 10.6 % (0.0-10.9)
[2017-10-08] MEDS ORDERED: MIDAZOLAM INJ 2 MG/2 ML VIAL (J2250) As Ordered (08:07)
[2017-10-08] MEDS ORDERED: ONDANSETRON 4MG/2ML VIAL (J2405) As Ordered (08:07)
[2017-10-08] MEDS ORDERED: PROPOFOL 200 MG/20 ML VIAL As Ordered (08:07)
[2017-10-08] MEDS ORDERED: fentaNYL 100 MCG/2 ML INJECTION (J3010) As Ordered (08:07)
[2017-10-08] MEDS ORDERED: LIDOCAINE 2% INJ 100 MG/5 ML SDV (FOR ANES.) As Ordered (08:07)
[2017-10-08] MEDS ORDERED: METOCLOPRAMIDE INJ 10MG/2ML VIAL (J2765) As Ordered (08:07)
[2017-10-08] MEDS: LR 1,000 ML IV (08:25)
[2017-10-08 08:33] LABS: BEDSIDE GLUCOSE 61 MG/DL (83-110)
[2017-10-08] MEDS ORDERED: NEOSTIGMINE 10 MG/10 ML VIAL (J2710) As Ordered (09:42)
[2017-10-08] MEDS ORDERED: GLYCOPYRROLATE INJ 0.2 MG/ML 2 ML VIAL As Ordered (09:42)
[2017-10-08 10:26] LABS: BEDSIDE GLUCOSE 86 MG/DL (83-110)
[2017-10-08] MEDS ORDERED: PERCOCET 5MG/325MG TAB As Ordered (10:44)
[2017-10-08] MEDS ORDERED: ONDANSETRON 4MG/2ML VIAL (J2405) IV (10:45)
[2017-10-08] MEDS ORDERED: LR 1,000 ML IV (10:45)
[2017-10-08] MEDS ORDERED: ACETAMINOPHEN TAB 650MG DOSE (2X325MG) PO (10:45)
[2017-10-08] MEDS ORDERED: fentaNYL 100 MCG/2 ML INJECTION (J3010) IV (10:45)
[2017-10-08] MEDS: PERCOCET 5MG/325MG TAB PO ×2 (10:50→11:21)
== END 2017-10-08 12:50 | disposition home or self-care (01) ==
LOC: M SDC 06:40
DX: D49.4 Neoplasm of unspecified behavior of bladder (principal); D69.6 Thrombocytopenia, unspecified; E11.65 Type 2 diabetes mellitus with hyperglycemia; F17.210 Nicotine dependence, cigarettes, uncomplicated; I10 Essential (primary) hypertension; F41.9 Anxiety disorder, unspecified; K86.1 Other chronic pancreatitis; Z79.899 Other long term (current) drug therapy; Z79.82 Long term (current) use of aspirin; Z79.4 Long term (current) use of insulin; Z87.19 Personal history of other diseases of the digestive system; Z88.5 Allergy status to narcotic agent
CPT/HCPCS: 52234

== ENCOUNTER → 2017-11-14 | Outpatient (CLI) | payer BC, OTHER | LOC: M LRY 15:21 | DX: S39.92XA Unspecified injury of lower back, initial encounter (principal); N40.2 Nodular prostate without lower urinary tract symptoms; X58.XXXA Exposure to other specified factors, initial encounter; Y93.9 Activity, unspecified | CPT/HCPCS: 72220 ==

== ENCOUNTER → 2017-11-21 | Outpatient (REF) | payer BC, OTHER ==
[2017-11-21 12:05] LABS: ANION GAP 6 MEQ/L (8-16); BLOOD UREA NITROGEN 25 MG/DL (7-18); CALCIUM LEVEL 8.2 MG/DL (8.8-10.2); CARBON DIOXIDE LEVEL 31 MEQ/L (21-32); CHLORIDE LEVEL 107 MEQ/L (98-107); CREATININE FOR GFR 1.15 MG/DL (0.70-1.30); ESTIMATED AVERAGE GLUCOSE 197 MG/DL (60-110); GLOMERULAR FILTRATION RATE > 60.0 (>42); GLUCOSE, FASTING 127 MG/DL (70-100); HEMOGLOBIN A1c 8.5 %; POTASSIUM SERUM 3.9 MEQ/L (3.5-5.1); SODIUM LEVEL 144 MEQ/L (136-145)
== END ==
LOC: M SFHCLERA 09:03
DX: E11.65 Type 2 diabetes mellitus with hyperglycemia (principal)
CPT/HCPCS: 83036

== ENCOUNTER → 2017-12-10 | Outpatient (REF) | payer BC, OTHER ==
[2017-12-10 18:52] LABS: FOLATE 15.8 NG/ML; VITAMIN B12 LEVEL 588 PG/ML
[2017-12-12 12:18] LABS: HEPATITIS B SURFACE ANTIGEN NEGATIVE (NEGATIVE)
[2017-12-12 12:43] LABS: HEPATITIS C VIRUS ABY INDEX 0.1 INDEX (<0.8)
[2017-12-12 12:44] LABS: HEPATITIS B CORE ANTIBODY IGM NEGATIVE (NEGATIVE)
== END ==
LOC: M LAB REF 16:48
DX: D69.6 Thrombocytopenia, unspecified (principal)
CPT/HCPCS: 82746

== ENCOUNTER → 2018-01-31 | Outpatient (CLI) | payer BC, OTHER ==
[2018-01-31 14:00] LABS: ALBUMIN 3.2 GM/DL (3.2-5.2); ALKALINE PHOSPHATASE 77 U/L (45-117); ALT/SGPT 30 U/L (12-78); AST/SGOT 16 U/L (7-37); BILIRUBIN,DIRECT 0.3 MG/DL (0.0-0.2); BILIRUBIN,TOTAL 0.8 MG/DL (0.2-1.0); TOTAL PROTEIN 7.8 GM/DL (6.4-8.2)
[2018-02-01 10:07] LABS: HEPATITIS B SURFACE ANTIBODY NEGATIVE (POSITIVE)
[2018-02-01 10:08] LABS: HEPATITIS B SURFACE ANTIGEN NEGATIVE (NEGATIVE)
[2018-02-01 10:30] LABS: HEPATITIS C VIRUS ABY INDEX < 0.0 INDEX (<0.8)
[2018-02-02 10:12] LABS: ANTI-SMOOTH MUSCLE ANTIBODY 2 Units (0-19)
[2018-02-02 10:12] LABS: ALPHA 2-MACROGLOBULINS,QN 166 mg/dL (110-276); ALT (SGPT) P5P 28 IU/L (0-55); ANTI-MITOCHONDRIAL ANTIBODY 0.8 Units (0.0-20.0); ANTINUCLEAR ANTIBODIES DIRECT Negative (Negative); APOLIPOPROTEIN A-1 112 mg/dL (101-178); AST (SGOT) P5P 18 IU/L (0-40); BILIRUBIN, TOTAL 0.6 mg/dL (0.0-1.2); CHOLESTEROL TOTAL 72 mg/dL (100-199); FIBROSIS SCORE 0.46 (0.00-0.21); FIBROSIS STAGE F1-F2 (.); GGT 28 IU/L (0-65); GLUCOSE, SERUM 42 mg/dL (65-99); HAPTOGLOBIN 71 mg/dL (34-200); HEIGHT 72 in (.); HEPATITIS A IgG TOTAL Negative (Negative); IgG SUBCLASS 4(ONLY) 9 mg/dL (2-96); LIVER-KIDNEY MICROSOMAL ABY 0.3 Units (0.0-20.0); NASH SCORE 0.25 (0.25); STEATOSIS SCORE 0.17 (0.00-0.30); TRIGLYCERIDES 47 mg/dL (0-149); WEIGHT 169 LBS (.)
== END ==
LOC: M LAB 12:13
DX: R10.13 Epigastric pain (principal)
CPT/HCPCS: 83010

== ENCOUNTER → 2018-03-14 | Outpatient (CLI) | payer BC, OTHER ==
[2018-03-14 17:55] LABS: CREATININE FOR GFR 1.21 MG/DL (0.70-1.30); GLOMERULAR FILTRATION RATE > 60.0 (>42)
[2018-03-14 17:55] LABS: BLOOD UREA NITROGEN 18 MG/DL (7-18)
== END ==
LOC: M SMT 13:30
DX: K86.1 Other chronic pancreatitis (principal); R10.13 Epigastric pain
CPT/HCPCS: 82565

== ENCOUNTER → 2018-03-20 | Outpatient (CLI) | payer BC, OTHER ==
[~2018-03-20] MED LIST changes: -ACET50TAOT PO; -ADVA115A INH; -ALBU17IN INH; -ALPR0.25 PO; -ASPI81TA18 PO; -CREO12CA PO; -HYDR-3713 PO; -INSULANT SQ; +ISOVUE-370 76% 100ML VIAL (Q9967) As Ordered; -LEVA1TAB2 PO; -LISI20TA PO; -LISINOPRIL-HCTZ; -MULT1CHW39 PO; -MULT1TAB28 PO; -NICO21PAT TD; -POTA20TA6 PO; -PRAV20TA2 PO; -TYLE325C PO; -TYLE325T5 PO; -VITA10006 PO
== END ==
LOC: M RAD 13:06
DX: K76.6 Portal hypertension (principal); K86.1 Other chronic pancreatitis
CPT/HCPCS: Q9967

== ENCOUNTER → 2018-04-22 | Outpatient (REF) | payer BC, OTHER ==
[2018-04-22 16:54] LABS: ESTIMATED AVERAGE GLUCOSE 183 MG/DL (60-110)
[2018-04-22 16:57] LABS: BASO % 0.5 % (0.0-1.0); EOS # 0.1 10^3/uL (0.0-0.50); EOS % 1.1 % (0.0-3.0); HEMATOCRIT 45.9 % (42.0-52.0); HEMOGLOBIN 15.1 g/dl (13.5-17.5); IMMATURE GRANULOCYTE % 0.2 % (0-3.0); LYMPH # 0.7 10^3/uL (1.5-4.5); LYMPH % 16.2 % (24.0-44.0); MEAN CORPUSCULAR HGB CONC 32.9 g/dl (32.0-36.5); MEAN CORPUSCULAR VOLUME 94.3 fl (80.0-96.0); MONO # 0.2 10^3/uL (0.0-0.8); MONO % 3.9 % (0.0-5.0); NEUTROPHILS # 3.4 10^3/uL (1.8-7.7); NEUTROPHILS % 78.1 % (36.0-66.0); RED BLOOD COUNT 4.87 10^6/uL (4.30-6.10); RED CELL DISTRIBUTION WIDTH 14.2 % (11.5-14.5); WHITE BLOOD COUNT 4.4 10^3/uL (4.0-10.0)
[2018-04-22 17:15] LABS: ALBUMIN 3.4 GM/DL (3.2-5.2); ALBUMIN/GLOBULIN RATIO 0.77 (1.00-1.93); ALKALINE PHOSPHATASE 76 U/L (45-117); ALT/SGPT 18 U/L (12-78); ANION GAP 7 MEQ/L (8-16); AST/SGOT 7 U/L (7-37); BILIRUBIN,TOTAL 0.7 MG/DL (0.2-1.0); BLOOD UREA NITROGEN 17 MG/DL (7-18); CARBON DIOXIDE LEVEL 31 MEQ/L (21-32); CHLORIDE LEVEL 104 MEQ/L (98-107); CHOLESTEROL LEVEL 84 MG/DL (<200); CHOLESTEROL RISK RATIO 1.555 (<5); CREATININE FOR GFR 1.14 MG/DL (0.70-1.30); GLOMERULAR FILTRATION RATE > 60.0 (>42); GLUCOSE, FASTING 276 MG/DL (70-100); HDL CHOLESTEROL 54 MG/DL (>40); LDL CHOLESTEROL 16.6 MG/DL (<100); NON-HDL-C 30 MG/DL; POTASSIUM SERUM 4.2 MEQ/L (3.5-5.1); SODIUM LEVEL 142 MEQ/L (136-145); TOTAL PROTEIN 7.8 GM/DL (6.4-8.2); TRIGLYCERIDES LEVEL 67 MG/DL (<150)
[2018-04-22 17:33] LABS: PLATELET COUNT, AUTOMATED 89 10^3/uL (150-450)
[2018-04-22 17:34] LABS: IMMATURE PLATELET FRACTION % 12.7 % (0.0-10.9)
[2018-04-22 17:36] LABS: MAU/CREAT RATIO 209.9 MCG/MG (0.0-30.0)
== END ==
LOC: M SFHCLERA 11:00
DX: E11.65 Type 2 diabetes mellitus with hyperglycemia (principal)
CPT/HCPCS: 84443

== ENCOUNTER 2018-06-28 23:05 | Emergency (ER) | payer BC, OTHER | END 2018-06-29 01:28 | disposition home or self-care (01) | LOC: M ED 06-29 01:28 | DX: R33.9 Retention of urine, unspecified (principal); E11.9 Type 2 diabetes mellitus without complications; I10 Essential (primary) hypertension | CPT/HCPCS: 51702 ==

== ENCOUNTER → 2018-08-02 | Outpatient (REF) | payer BC, OTHER ==
[2018-08-02 17:53] LABS: APPEARANCE, URINE CLOUDY (CLEAR); BACTERIA, URINE AUTO 1+ (NEGATIVE); BILIRUBIN, URINE AUTO NEGATIVE (NEGATIVE); BLOOD, URINE BLOOD 3+ (NEGATIVE); COLOR, URINE RED (YELLOW); GLUCOSE, URINE (UA) AUTO 3+ mg/dL (NEGATIVE); KETONE, URINE AUTO TRACE mg/dL (NEGATIVE); LEUKOCYTE ESTERASE, URINE AUTO NEGATIVE (NEGATIVE); MUCUS, URINE SMALL (NEGATIVE); NITRITE, URINE AUTO NEGATIVE (NEGATIVE); PROTEIN, URINE AUTO 2+ mg/dL (NEGATIVE); RBC, URINE AUTO TNTC /HPF (0-3); SPECIFIC GRAVITY URINE AUTO 1.022 (1.002-1.035); SQUAMOUS EPITHELIAL CELL UR AU 0 /HPF (0-6); UROBILINOGEN, URINE AUTO 0.2 mg/dL (0.0-2.0); WBC, URINE AUTO 2 /HPF (0-3)
== END ==
LOC: M SMT 17:07
DX: R31.9 Hematuria, unspecified (principal)
CPT/HCPCS: 81001

== ENCOUNTER → 2018-08-05 | Outpatient (CLI) | payer BC, OTHER | LOC: M LRY 09:25 | DX: Z01.818 Encounter for other preprocedural examination (principal); N40.1 Benign prostatic hyperplasia with lower urinary tract symptoms | CPT/HCPCS: 71046 ==

== ENCOUNTER → 2018-08-05 | Outpatient (REF) | payer BC, OTHER ==
[2018-08-05 12:07] LABS: INR 1.19; PROTHROMBIN TIME 15.2 SECONDS (12.1-14.4)
[2018-08-05 12:46] LABS: HEMATOCRIT 45.3 % (42.0-52.0); HEMOGLOBIN 15.6 g/dl (13.5-17.5); MEAN CORPUSCULAR HEMOGLOBIN 30.4 pg (27.0-33.0); MEAN CORPUSCULAR HGB CONC 34.4 g/dl (32.0-36.5); MEAN CORPUSCULAR VOLUME 88.3 fl (80.0-96.0); RED BLOOD COUNT 5.13 10^6/uL (4.30-6.10); RED CELL DISTRIBUTION WIDTH 14.1 % (11.5-14.5); WHITE BLOOD COUNT 4.9 10^3/uL (4.0-10.0)
[2018-08-05 12:47] LABS: IMMATURE PLATELET FRACTION % 17.9 % (0.0-10.9); PLATELET COUNT, AUTOMATED 72 10^3/uL (150-450)
[2018-08-05 12:49] LABS: ANION GAP 6 MEQ/L (8-16); BLOOD UREA NITROGEN 17 MG/DL (7-18); CALCIUM LEVEL 9.1 MG/DL (8.8-10.2); CARBON DIOXIDE LEVEL 31 MEQ/L (21-32); CHLORIDE LEVEL 106 MEQ/L (98-107); GLOMERULAR FILTRATION RATE > 60.0 (>42); GLUCOSE, FASTING 112 MG/DL (70-100); POTASSIUM SERUM 4.5 MEQ/L (3.5-5.1); SODIUM LEVEL 143 MEQ/L (136-145)
== END ==
LOC: M LABSMT 09:33
DX: Z01.818 Encounter for other preprocedural examination (principal); N40.1 Benign prostatic hyperplasia with lower urinary tract symptoms
CPT/HCPCS: 80048

== ENCOUNTER 2018-08-13 06:10 | Day surgery (SDC) | payer BC, OTHER ==
[2018-08-13 06:44] LABS: BEDSIDE GLUCOSE 187 MG/DL (83-110)
[2018-08-13] MEDS: LR 1,000 ML IV (06:59)
[2018-08-13] MEDS ORDERED: PROPOFOL 200 MG/20 ML VIAL As Ordered ×5 (07:14→10:01)
[2018-08-13] MEDS ORDERED: fentaNYL 100 MCG/2 ML INJECTION (J3010) As Ordered (07:15)
[2018-08-13] MEDS ORDERED: BUPIVACAINE/DEXTROSE 0.75% 2 ML AMP As Ordered (07:15)
[2018-08-13] MEDS ORDERED: LIDOCAINE 2% INJ 100 MG/5 ML SDV (FOR ANES.) As Ordered (07:15)
[2018-08-13] MEDS ORDERED: MIDAZOLAM INJ 2 MG/2 ML VIAL (J2250) As Ordered ×2 (07:15→09:16)
[2018-08-13] MEDS ORDERED: KETOROLAC 60 MG/2 ML VIAL (J1885) As Ordered ×2 (08:03)
[2018-08-13] MEDS ORDERED: ONDANSETRON 4MG/2ML VIAL (J2405) As Ordered ×2 (08:03)
[2018-08-13] MEDS ORDERED: PHENYLephrine HCL 500 MCG/5 ML (100MCG/ML) SYRINGE (J2370) As Ordered (09:05)
[2018-08-13] MEDS ORDERED: FUROSEMIDE 100 MG/10 ML VIAL (J1940) As Ordered (09:46)
[2018-08-13 10:32] LABS: BEDSIDE GLUCOSE 218 MG/DL (83-110)
[2018-08-13] MEDS ORDERED: ACETAMINOPHEN TAB 650MG DOSE (2X325MG) PO (11:00)
[2018-08-13] MEDS ORDERED: fentaNYL 100 MCG/2 ML INJECTION (J3010) IV (11:00)
[2018-08-13] MEDS ORDERED: ONDANSETRON 4MG/2ML VIAL (J2405) IV (11:00)
[2018-08-13] MEDS ORDERED: HYDROMORPHONE HCL 0.5 MG/ 0.5 ML SYRINGE (J1170 PER 1) IV (11:00)
[2018-08-13] MEDS ORDERED: LR 1,000 ML IV (11:00)
[2018-08-13] MEDS ORDERED: POLYVINYL ALCOHOL OPHTH SOLN 15 ML(LIQUITEARS) OU (12:30)
[2018-08-13 12:33] LABS: BEDSIDE GLUCOSE 210 MG/DL (83-110)
[2018-08-13] MEDS: ERYTHROMYCIN OPHTH OINT OU (13:45)
[2018-08-13] MEDS: PROPARACAINE 0.5% OPHTH SOL 15ML OU (14:00)
[2018-08-13] MEDS ORDERED: PROPARACAINE 0.5% OPHTH SOL 15ML As Ordered (14:01)
[2018-08-13] MEDS: PERCOCET 5MG/325MG TAB PO (14:15)
[2018-08-13] MEDS ORDERED: FLUORESCEIN OPHTH 1 MG STRIP As Ordered (14:16)
== END 2018-08-13 15:16 | disposition home or self-care (01) ==
LOC: M SDC 06:10
DX: N40.1 Benign prostatic hyperplasia with lower urinary tract symptoms (principal); R33.8 Other retention of urine; N39.0 Urinary tract infection, site not specified; I10 Essential (primary) hypertension; E78.00 Pure hypercholesterolemia, unspecified; E10.9 Type 1 diabetes mellitus without complications; K85.90 Acute pancreatitis without necrosis or infection, unspecified; K86.1 Other chronic pancreatitis; K76.6 Portal hypertension; E27.8 Other specified disorders of adrenal gland; K40.20 Bilateral inguinal hernia, without obstruction or gangrene, not specified as recurrent; F41.9 Anxiety disorder, unspecified; R51 Headache; J44.9 Chronic obstructive pulmonary disease, unspecified; Z88.5 Allergy status to narcotic agent; Z79.899 Other long term (current) drug therapy; Z79.82 Long term (current) use of aspirin; Z79.4 Long term (current) use of insulin; Z86.2 Personal history of diseases of the blood and blood-forming organs and certain disorders involving the immune mechanism; Z72.0 Tobacco use
CPT/HCPCS: 52601

== ENCOUNTER → 2018-08-22 | Outpatient (REF) | payer BC, OTHER ==
[~2018-08-22] MED LIST changes: +ACET500T15 PO; +ADVA115A INH; +ALBU17IN INH; +ALPR0.25 PO; +AMLO5TAB4 PO; +ASPI1TAB PO; +ASPI81TA52 PO; +CREO12CA PO; +FLOM0.4C39 PO; +HYDR-3713 PO; +IBUP1TAB6 PO; +IBUPOTC PO; +INSUH10VL SC; +INSULANT SQ; -ISOVUE-370 76% 100ML VIAL (Q9967) As Ordered; +LEVA1TAB2 PO; +LISI20TA PO; +LISINOPRIL-HCTZ; +MELA3TAB49 PO; +MULT1CHW39 PO; +MULT1TAB28 PO; +NICO21PAT TD; +POTA10TA16 PO; +POTA1TAB14 PO; +POTA20TA6 PO; +PRAV20TA2 PO; +PROAAER10 INH; +TYLE325C PO; +TYLE325T5 PO; +VITA10006 PO; +VITA500T PO; +XANA0.25 PO
[2018-08-22 14:17] LABS: APPEARANCE, URINE CLOUDY (CLEAR); BACTERIA, URINE AUTO 1+ (NEGATIVE); BILIRUBIN, URINE AUTO NEGATIVE (NEGATIVE); BLOOD, URINE BLOOD 3+ (NEGATIVE); COLOR, URINE YELLOW (YELLOW); GLUCOSE, URINE (UA) AUTO NEGATIVE (NEGATIVE); KETONE, URINE AUTO NEGATIVE (NEGATIVE); LEUKOCYTE ESTERASE, URINE AUTO 2+ (NEGATIVE); MUCUS, URINE SMALL (NEGATIVE); NITRITE, URINE AUTO NEGATIVE (NEGATIVE); PROTEIN, URINE AUTO 2+ mg/dL (NEGATIVE); RBC, URINE AUTO TNTC /HPF (0-3); RENAL EPITHELIAL CELLS 53 /HPF; SPECIFIC GRAVITY URINE AUTO 1.016 (1.002-1.035); SQUAMOUS EPITHELIAL CELL UR AU 0 /HPF (0-6); WBC, URINE AUTO 178 /HPF (0-3)
== END ==
LOC: M SMT 13:24
PROVIDERS: ATTEND Nurse Practitioner Family
DX: R33.8 Other retention of urine (principal)

== ENCOUNTER → 2018-09-03 | Outpatient (REF) | payer BC, OTHER ==
[2018-09-03 14:19] LABS: APPEARANCE, URINE HAZY (CLEAR); BACTERIA, URINE AUTO NEGATIVE (NEGATIVE); BILIRUBIN, URINE AUTO NEGATIVE (NEGATIVE); BLOOD, URINE BLOOD 3+ (NEGATIVE); COLOR, URINE YELLOW (YELLOW); GLUCOSE, URINE (UA) AUTO 3+ mg/dL (NEGATIVE); KETONE, URINE AUTO TRACE mg/dL (NEGATIVE); LEUKOCYTE ESTERASE, URINE AUTO 2+ (NEGATIVE); MUCUS, URINE SMALL (NEGATIVE); NITRITE, URINE AUTO NEGATIVE (NEGATIVE); PROTEIN, URINE AUTO 2+ mg/dL (NEGATIVE); RBC, URINE AUTO TNTC /HPF (0-3); SQUAMOUS EPITHELIAL CELL UR AU 1 /HPF (0-6); UROBILINOGEN, URINE AUTO 0.2 mg/dL (0.0-2.0); WBC, URINE AUTO 73 /HPF (0-3)
== END ==
LOC: M SMT 12:58
DX: R35.0 Frequency of micturition (principal)
CPT/HCPCS: 81001

== ENCOUNTER → 2018-09-18 | Outpatient (REF) | payer BC, OTHER ==
[~2018-09-18] MED LIST changes: -AMLO5TAB4 PO; +AMLO5TAB6 PO
[2018-09-18 17:29] LABS: APPEARANCE, URINE CLOUDY (CLEAR); BACTERIA, URINE AUTO 1+ (NEGATIVE); BILIRUBIN, URINE AUTO NEGATIVE (NEGATIVE); BLOOD, URINE BLOOD 3+ (NEGATIVE); COLOR, URINE AMBER (YELLOW); GLUCOSE, URINE (UA) AUTO 1+ mg/dL (NEGATIVE); KETONE, URINE AUTO NEGATIVE (NEGATIVE); LEUKOCYTE ESTERASE, URINE AUTO 3+ (NEGATIVE); MUCUS, URINE SMALL (NEGATIVE); NITRITE, URINE AUTO NEGATIVE (NEGATIVE); PROTEIN, URINE AUTO 2+ mg/dL (NEGATIVE); RBC, URINE AUTO TNTC /HPF (0-3); SPECIFIC GRAVITY URINE AUTO 1.021 (1.002-1.035); SQUAMOUS EPITHELIAL CELL UR AU 0 /HPF (0-6); WBC, URINE AUTO TNTC /HPF (0-3)
== END ==
LOC: M SMT 16:56
PROVIDERS: ATTEND Urology
DX: R30.0 Dysuria (principal)

== ENCOUNTER 2018-10-06 20:14 | Emergency (ER) | payer BC, OTHER ==
[~2018-10-06] VITALS: Ht 175.3 cm; Wt 68.2 kg
[2018-10-06] MEDS ORDERED: PANTOPRAZOLE 40MG INJ (PROTONIX) (C9113) IV ONE (20:30)
[2018-10-06] MEDS ORDERED: NS 1,000 ML IV ONE (20:30)
[2018-10-06] MEDS ORDERED: KETOROLAC 30 MG/ML VIAL (J1885) IV ONE (20:30)
[2018-10-06] MEDS ORDERED: ONDANSETRON 4MG/2ML VIAL (J2405) IV ONE (20:30)
[2018-10-06] MEDS ORDERED: MORPHINE 2 MG/ML 1ML SYRINGE (J2270) IV PRN (20:30)
[2018-10-06 20:49] LABS: BASO % 0.1 % (0.0-1.0); EOS # 0.1 10^3/uL (0.0-0.50); EOS % 1.2 % (0.0-3.0); HEMATOCRIT 40.9 % (42.0-52.0); HEMOGLOBIN 13.6 g/dl (13.5-17.5); LYMPH # 0.6 10^3/uL (1.5-4.5); LYMPH % 7.1 % (24.0-44.0); MEAN CORPUSCULAR HEMOGLOBIN 30.4 pg (27.0-33.0); MEAN CORPUSCULAR HGB CONC 33.3 g/dl (32.0-36.5); MEAN CORPUSCULAR VOLUME 91.3 fl (80.0-96.0); MONO # 0.2 10^3/uL (0.0-0.8); MONO % 3.1 % (0.0-5.0); NEUTROPHILS # 6.8 10^3/uL (1.8-7.7); NEUTROPHILS % 88.2 % (36.0-66.0); RED BLOOD COUNT 4.48 10^6/uL (4.30-6.10); WHITE BLOOD COUNT 7.7 10^3/uL (4.0-10.0)
[2018-10-06 20:51] LABS: PLATELET COUNT, AUTOMATED 61 10^3/uL (150-450)
[2018-10-06 21:02] LABS: INR 1.29; PROTHROMBIN TIME 16.3 SECONDS (12.1-14.4)
[2018-10-06 21:11] LABS: ALBUMIN 2.8 GM/DL (3.2-5.2); BILIRUBIN,DIRECT 0.4 MG/DL (0.0-0.2); BILIRUBIN,TOTAL 0.8 MG/DL (0.2-1.0); CALCIUM LEVEL 8.7 MG/DL (8.8-10.2); CREATININE FOR GFR 1.41 MG/DL (0.70-1.30); GLOMERULAR FILTRATION RATE 52.6 (>42); POTASSIUM SERUM 3.6 MEQ/L (3.5-5.1); TOTAL PROTEIN 6.7 GM/DL (6.4-8.2)
[2018-10-06] MEDS ORDERED: HumuLIN R (REGULAR) INSULIN (NovoLIN R) **100U/ML** PER UNIT IV ONE (21:15)
[2018-10-06] MEDS ORDERED: MIRA3350 PO (21:16)
--- NOTE | 2018-10-06 21:34 | REPVR ---
EXAM: CT Abdomen and Pelvis Without Contrast EXAM DATE/TIME: 10/06/2018 8:42 PM CLINICAL HISTORY: 73 years old, male; Pain; Abdominal pain; Additional info: Abd pain TECHNIQUE: Axial computed tomography images of the abdomen and pelvis without contrast. All CT scans at this facility use at least one of these dose optimization techniques: automated exposure control; mA and/or kV adjustment per patient size (includes targeted exams where dose is matched to clinical indication); or iterative reconstruction. Coronal and sagittal reformatted images were created and reviewed. COMPARISON: CT ABD PELVIS W/O FOL BY WIT 03/20/2018 1:20 PM FINDINGS: Limitations: Exam limited by the lack of IV and oral contrast. Lower thorax: No acute findings. ABDOMEN: Liver: Unremarkable. No mass. Gallbladder and bile ducts: Status post cholecystectomy. Pancreas: Coarse calcifications within the head of the pancreas consistent with chronic pancreatitis. Spleen: Splenic capsule calcifications, unchanged. Otherwise unremarkable spleen. Adrenals: Nodular thickening of the left adrenal gland, unchanged. Unremarkable right adrenal gland. Kidneys and ureters: 7 cm cyst in the left kidney mid pole, unchanged. Unremarkable right kidney. No hydronephrosis. Stomach and bowel: Redemonstration of a large left inguinal hernia which contains a larger segment of sigmoid colon is not seen on the prior examination. There is a moderate amount of fecal matter within the distal descending colon proximal to the hernia and there is a moderate amount of fecal matter within the sigmoid colon located within the hernia sac. There are stool-filled and decompressed loops of sigmoid colon within the hernia sac, but no definite evidence of sigmoid colon obstruction. Significant circumferential wall thickening of the proximal and midportion of the descending colon with pericolonic fluid and fat stranding is present and consistent with colitis, nonspecific. Appendix: No evidence of appendicitis. PELVIS: Bladder: Right inguinal hernia containing a portion of urinary bladder, unchanged. No stones. The Reproductive: Unremarkable as visualized. ABDOMEN and PELVIS: Intraperitoneal space: No free air. No significant fluid collection. Bones/joints: Degenerative spondylosis of the lumbar spine. No acute fracture or suspicious bone lesion. Vasculature: Atherosclerosis of the abdominal aorta and iliac arteries. No aneurysm. Lymph nodes: No enlarged lymph nodes. IMPRESSION: 1. Nonspecific colitis of the proximal and midportion of the descending colon. 2. Left inguinal hernia containing a large segment of sigmoid colon. No definite bowel obstruction is identified. 3. Right inguinal hernia containing a small portion of urinary bladder, unchanged. Electronically signed by: Tyrone Blakely On 10/06/2018 21:34:43 PM
[2018-10-06] MEDS ORDERED: TRAM50TA2 PO (22:23)
[2018-10-06] MEDS ORDERED: COLA100C5 PO (22:23)
[2018-10-06 22:30] VITALS: BP 118/57
[2018-10-06] MEDS ORDERED: traMADol 50 MG TAB (BULK 4 TAB ED) PO ONE (22:30)
[2018-10-06] MEDS ORDERED: MAGNESIUM CITRATE 300 ML BTL PO ONE (22:30)
--- NOTE | 2018-10-07 14:20 | ED PDOC ---
Post-Departure Follow-Up radiology report faxed to Bhargavi Khan MD Oct 07, 2018 14:20
== END 2018-10-06 22:47 | disposition home or self-care (01) ==
LOC: M ED 20:14
DX: K59.00 Constipation, unspecified (principal); E11.9 Type 2 diabetes mellitus without complications; I10 Essential (primary) hypertension; E78.5 Hyperlipidemia, unspecified; Z87.19 Personal history of other diseases of the digestive system; Z79.899 Other long term (current) drug therapy; Z79.82 Long term (current) use of aspirin; Z79.4 Long term (current) use of insulin; Z88.5 Allergy status to narcotic agent; F17.210 Nicotine dependence, cigarettes, uncomplicated
CPT/HCPCS: 36415; 74176; 80048; 80076; 83690; 85025; 85049; 85055; 85610; 96361; 96374; 96375; 99284; C9113; J1885; J2270; J2405

== ENCOUNTER → 2018-10-22 | Outpatient (REF) | payer BC, OTHER ==
[~2018-10-22] MED LIST changes: +COLA100C5 PO; +MIRA3350 PO; +TRAM50TA2 PO
[2018-10-22 16:40] LABS: ALT/SGPT 13 U/L (12-78); BILIRUBIN,TOTAL 0.6 MG/DL (0.2-1.0); BLOOD UREA NITROGEN 20 MG/DL (7-18); CALCIUM LEVEL 8.8 MG/DL (8.8-10.2); CARBON DIOXIDE LEVEL 31 MEQ/L (21-32); CHLORIDE LEVEL 101 MEQ/L (98-107); CREATININE FOR GFR 1.17 MG/DL (0.70-1.30); GLOMERULAR FILTRATION RATE > 60.0 (>42); GLUCOSE, FASTING 234 MG/DL (70-100); POTASSIUM SERUM 4.1 MEQ/L (3.5-5.1); SODIUM LEVEL 139 MEQ/L (136-145)
[2018-10-22 16:57] LABS: HEMOGLOBIN A1c 9.3 %
[2018-10-22 17:39] LABS: BASO % 0.4 % (0.0-1.0); EOS # 0.1 10^3/uL (0.0-0.50); EOS % 1.2 % (0.0-3.0); HEMATOCRIT 40.8 % (42.0-52.0); HEMOGLOBIN 13.6 g/dl (13.5-17.5); LYMPH # 0.7 10^3/uL (1.5-4.5); LYMPH % 14.1 % (24.0-44.0); MEAN CORPUSCULAR HEMOGLOBIN 29.7 pg (27.0-33.0); MEAN CORPUSCULAR HGB CONC 33.3 g/dl (32.0-36.5); MEAN CORPUSCULAR VOLUME 89.1 fl (80.0-96.0); MONO # 0.2 10^3/uL (0.0-0.8); MONO % 4.6 % (0.0-5.0); NEUTROPHILS % 79.7 % (36.0-66.0); RED BLOOD COUNT 4.58 10^6/uL (4.30-6.10)
[2018-10-22 17:45] LABS: PLATELET COUNT, AUTOMATED 80 10^3/uL (150-450)
== END ==
LOC: M SFHCLERA 11:45
PROVIDERS: ATTEND Family Medicine
DX: Z01.818 Encounter for other preprocedural examination (principal)

== ENCOUNTER 2018-11-01 06:52 | Day surgery (SDC) | payer BC, OTHER ==
[~2018-11-01] VITALS: Ht 177.8 cm; Wt 66.7 kg
[~2018-11-01 06:52] MED LIST changes: +LR 1,000 ML IV ONE
[2018-11-01] MEDS ORDERED: ONDANSETRON 4MG/2ML VIAL (J2405) As Ordered ONE ×2 (07:44→07:47)
[2018-11-01] MEDS ORDERED: MIDAZOLAM INJ 2 MG/2 ML VIAL (J2250) As Ordered ONE (07:44)
[2018-11-01] MEDS ORDERED: ROCURONIUM BROMIDE 50 MG/5 ML VIAL As Ordered ONE ×2 (07:44→09:30)
[2018-11-01] MEDS ORDERED: LIDOCAINE 2% INJ 100 MG/5 ML SDV (FOR ANES.) As Ordered ONE (07:44)
[2018-11-01] MEDS ORDERED: PROPOFOL 200 MG/20 ML VIAL As Ordered ONE (07:44)
[2018-11-01] MEDS ORDERED: dexameTHASONE 4 MG/ML 1ML VIAL (J1100) As Ordered ONE (07:44)
[2018-11-01] MEDS ORDERED: HYDROmorphone HCL 2 MG/ML 1ML VIAL (J1170) As Ordered ONE (07:45)
[2018-11-01] MEDS ORDERED: fentaNYL 100 MCG/2 ML INJECTION (J3010) As Ordered ONE (07:45)
[2018-11-01] MEDS ORDERED: SUGAMMADEX SODIUM 500 MG/5 ML VIAL (BRIDION) As Ordered ONE (07:45)
[2018-11-01] MEDS ORDERED: LIDOCAINE W/EPINEPHRINE 1% 20ML VIAL As Ordered ONE (08:14)
[2018-11-01] MEDS ORDERED: GLYCOPYRROLATE INJ 0.2 MG/ML 2 ML VIAL As Ordered ONE (09:30)
[2018-11-01] MEDS ORDERED: D5W 250 ML IV ONE (09:30)
[2018-11-01] MEDS ORDERED: HYDROMORPHONE HCL 0.5 MG/ 0.5 ML SYRINGE (J1170 PER 1) As Ordered ONE ×2 (11:10→12:20)
[2018-11-01] MEDS: HYDROMORPHONE HCL 0.5 MG/ 0.5 ML SYRINGE (J1170 PER 1) IV PRN ×3 (11:13→11:50)
[2018-11-01] MEDS ORDERED: ONDANSETRON 4MG/2ML VIAL (J2405) IV PRN (11:15)
[2018-11-01] MEDS ORDERED: NORCO, ANEXSIA 5/325MG TABLET (HYDROcodone/ACETAMINOPHEN) PO PRN (11:15)
[2018-11-01] MEDS ORDERED: fentaNYL 100 MCG/2 ML INJECTION (J3010) IV PRN (11:15)
[2018-11-01] MEDS ORDERED: KETOROLAC 30 MG/ML VIAL (J1885) As Ordered ONE (16:01)
[2018-11-01] MEDS ORDERED: KETOROLAC 30 MG/ML VIAL (J1885) IV ONE (16:15)
[2018-11-01 17:00] VITALS: BP 140/72
--- NOTE | 2018-11-04 14:10 | RO ---
DATE OF PROCEDURE: 11/01/2018 PREOPERATIVE DIAGNOSIS: Bilateral incarcerated inguinal hernias. POSTOPERATIVE DIAGNOSIS: Bilateral incarcerated inguinal hernias. Extensive intra-abdominal adhesions. PROCEDURE: laparoscopic lysis of adhesions. SURGEON: Dr. Brenden Ruiz MANAGER TRANSFER: Dr. Devine, who assisted with visualization, retraction and takedown of small bowel and omental adhesions. ANESTHESIA: General. ESTIMATED BLOOD LOSS: 10. COMPLICATIONS: Were the extensive adhesions, making it impossible to complete the hernia repair at the same time due to possibility of small bowel injury. INDICATION FOR PROCEDURE: The patient is a 73-year-old male who presents with bilateral incarcerated inguinal hernias. Recommendation was to proceed with robotic repair. Risks and benefits of the procedure, not limited to but including bleeding, infection, hernia formation, damage to surrounding structures, need for further surgery were discussed in detail with the patient abd informed was obtained and the procedure was planned. DESCRIPTION OF PROCEDURE: The patient brought back to operating room seven after sufficient sedation and the abdomen was sterilely prepped and draped and a Morales catheter was placed. Next a time-out was done to confirm proper patient and proper procedure. Following that, an 8 mm incision made supraumbilically in the midline. Veress needle was then used to gain access to the abdomen. Once the abdomen was entered, it was insufflated to 15 mmHg. The Veress needle was then removed. A 5 mm OptiVu port was used to gain access to the abdomen. Once abdomen was entered, the camera was reinserted and it appeared that the port was below the omentum yet outside of the small bowel and there were multiple small bowel adhesions to the omentum and surrounding it as well. I was able to visualize enough into the right lower quadrant to place another 5 mm port, which also was through the omentum. From there I was able to visualize the left lower quadrant and place another 5 mm port that was inferior to the omentum. Once this was completed, I was able to look around. There was some air in the mesentery for the small bowel near the umbilical port site where the Veress needle had entered. Due to the possibility of a Veress needle injury to the small bowel, I elected to avoid any hernia procedure that may run the risk of infected mesh. Therefore, I placed another 5 mm port in the left lower quadrant. Using an Enseal, I was able to take down the small bowel adhesions around the entire mid abdomen and was able to run the bowel in that area. I did not see any obvious injuries whatsoever. After all those adhesions were removed, the omental adhesions were taken down from inferior all way up to the rib cage and the level of the liver. Once that was completed, I looked in both groins to evaluate the hernias. They both appear to be direct inguinal hernias. The left side has a loop of sigmoid colon within it. I was able to open up the entire hernia sac and take down at least 50% of the adhesions from the sigmoid colon to the abdominal wall and on the right side I was also able to take down adhesions from the cecum to the right lower quadrant to free up enough space for doing the hernia repair in the future. Once all these adhesions were removed, the procedure was completed. The plan is to bring him back in a couple of weeks once we have confirmed that there was no small bowel injury and proceed with a robotic bilateral inguinal hernia repair at that time. The abdomen was then desufflated. Skin incisions were closed #4-0 Vicryl subcuticular sutures. The abdomen was cleaned and dried. Steri-Strips, 4x4 and tape were applied, ending the procedure. Postoperatively, I spoke to his family and explained everything that occurred. I will see him in the office soon to reschedule his procedure.
== END 2018-11-01 17:00 | disposition home or self-care (01) ==
LOC: M SDC 06:52
PROVIDERS: ATTEND Surgery
DX: K66.0 Peritoneal adhesions (postprocedural) (postinfection) (principal); K40.00 Bilateral inguinal hernia, with obstruction, without gangrene, not specified as recurrent; I10 Essential (primary) hypertension; F41.9 Anxiety disorder, unspecified; E78.5 Hyperlipidemia, unspecified; N40.0 Benign prostatic hyperplasia without lower urinary tract symptoms; D69.6 Thrombocytopenia, unspecified; Z79.899 Other long term (current) drug therapy; F17.210 Nicotine dependence, cigarettes, uncomplicated; Z79.82 Long term (current) use of aspirin
CPT/HCPCS: 49329; J0690; J1100; J1170; J1885; J2250; J2405; J3010

== ENCOUNTER → 2018-11-18 | Outpatient (REF) | payer BC, OTHER ==
[~2018-11-18] MED LIST changes: -LR 1,000 ML IV ONE
[2018-11-18 18:31] LABS: APPEARANCE, URINE CLEAR (CLEAR); BACTERIA, URINE AUTO 1+ (NEGATIVE); BILIRUBIN, URINE AUTO NEGATIVE (NEGATIVE); BLOOD, URINE BLOOD NEGATIVE (NEGATIVE); COLOR, URINE YELLOW (YELLOW); GLUCOSE, URINE (UA) AUTO NEGATIVE (NEGATIVE); KETONE, URINE AUTO NEGATIVE (NEGATIVE); LEUKOCYTE ESTERASE, URINE AUTO 1+ (NEGATIVE); NITRITE, URINE AUTO NEGATIVE (NEGATIVE); PROTEIN, URINE AUTO 2+ mg/dL (NEGATIVE); RBC, URINE AUTO 14 /HPF (0-3); SPECIFIC GRAVITY URINE AUTO 1.013 (1.002-1.035); SQUAMOUS EPITHELIAL CELL UR AU 0 /HPF (0-6); WBC, URINE AUTO 89 /HPF (0-3)
== END ==
LOC: M SMT 16:47
PROVIDERS: ATTEND Urology
DX: N40.1 Benign prostatic hyperplasia with lower urinary tract symptoms (principal)

== ENCOUNTER 2018-11-29 05:53 | Day surgery (SDC) | payer BC, OTHER ==
[~2018-11-29] VITALS: Ht 177.8 cm; Wt 68.0 kg
[2018-11-29] MEDS ORDERED: LR 1,000 ML IV ONE (07:00)
[2018-11-29] MEDS ORDERED: LIDOCAINE 2% INJ 100 MG/5 ML SDV (FOR ANES.) As Ordered ONE (07:14)
[2018-11-29] MEDS ORDERED: ROCURONIUM BROMIDE 50 MG/5 ML VIAL As Ordered ONE (07:14)
[2018-11-29] MEDS ORDERED: PROPOFOL 200 MG/20 ML VIAL As Ordered ONE (07:14)
[2018-11-29] MEDS ORDERED: fentaNYL 250 MCG/5 ML INJECTION (J3010) As Ordered ONE (07:15)
[2018-11-29] MEDS ORDERED: BUPIVACAINE/EPIN 0.25% 30 ML VIAL As Ordered ONE (07:15)
[2018-11-29] MEDS ORDERED: MIDAZOLAM INJ 2 MG/2 ML VIAL (J2250) As Ordered ONE (07:15)
[2018-11-29] MEDS ORDERED: ePHEDrine SULFATE 25 MG/5 ML(5MG/ML) SYRINGE As Ordered ONE (08:02)
[2018-11-29] MEDS ORDERED: KETOROLAC 60 MG/2 ML VIAL (J1885) As Ordered ONE (08:22)
[2018-11-29] MEDS ORDERED: ONDANSETRON 4MG/2ML VIAL (J2405) As Ordered ONE (08:22)
[2018-11-29] MEDS ORDERED: NEOSTIGMINE 10 MG/10 ML VIAL (J2710) As Ordered ONE (08:22)
[2018-11-29] MEDS ORDERED: METOCLOPRAMIDE INJ 10MG/2ML VIAL (J2765) As Ordered ONE (08:22)
[2018-11-29] MEDS ORDERED: GLYCOPYRROLATE INJ 0.2 MG/ML 2 ML VIAL As Ordered ONE (08:23)
[2018-11-29] MEDS ORDERED: fentaNYL 100 MCG/2 ML INJECTION (J3010) As Ordered ONE (11:06)
[2018-11-29] MEDS ORDERED: NORCO, ANEXSIA 5/325MG TABLET (HYDROcodone/ACETAMINOPHEN) As Ordered ONE (11:55)
[2018-11-29] MEDS ORDERED: MORPHINE 10 MG/ML 1ML VIAL (J2270) As Ordered ONE (12:08)
[2018-11-29] MEDS: MORPHINE 10 MG/ML 1ML VIAL (J2270) IV PRN ×5 (12:10→12:30)
[2018-11-29] MEDS ORDERED: NORCO, ANEXSIA 5/325MG TABLET (HYDROcodone/ACETAMINOPHEN) PO PRN ×2 (12:15)
[2018-11-29] MEDS ORDERED: fentaNYL 100 MCG/2 ML INJECTION (J3010) IV PRN (12:15)
[2018-11-29] MEDS ORDERED: LR 1,000 ML IV SCH (12:15)
[2018-11-29] MEDS ORDERED: ONDANSETRON 4MG/2ML VIAL (J2405) IV PRN (12:15)
[2018-11-29 13:40] VITALS: BP 149/68
--- NOTE | 2018-11-29 17:00 | RO ---
DATE OF PROCEDURE: 11/29/2018 PREOPERATIVE DIAGNOSIS: Bilateral incarcerated inguinal hernias. POSTOPERATIVE DIAGNOSIS: Bilateral incarcerated inguinal hernias. OPERATIVE PROCEDURE: Robotic-assisted bilateral incarcerated inguinal hernia repairs. SURGEON: Brenden Ruiz DO MEDICAL AFFAIRS MANAGER: JYOTI Mata, Bryon Devine MD who assisted with mobilization of the sigmoid colon, bladder as well as placement of the mesh. ANESTHESIA: General. ESTIMATED BLOOD LOSS: 5 mL COMPLICATIONS: None. INDICATIONS FOR PROCEDURE The patient is 73-year-old male who presents with bilateral incarcerated inguinal hernias that were very large. Recommendation was to proceed with robotic repair. Risks and benefits of the procedure not limited to but including bleeding, infection, hernia formation, hernia recurrence, damage to surrounding structures, need for further surgery were discussed in detail with the patient and informed consent was obtained and procedure was planned. PROCEDURE The patient was brought back to operating room seven, after sufficient sedation the abdomen was sterilely prepped and a Morales catheter was placed. Next, a time-out was done to confirm proper patient and proper procedure. Following that, 5 mm incision made in left lower quadrant. Veress needle was inserted and the abdomen was insufflated to 50 mmHg. Next, the Veress needle was removed and a 5 mm OptiVu port was used to gain access to the abdomen. Once the abdomen was entered, there were multiple adhesions in the upper and right side of the abdomen. Another 5 mm robotic port was then placed in the left midabdomen. Using that port, I was able to take down adhesions on the right side superior enough to place the right-sided port. Once that was completed, another port was placed at the umbilicus. Then the robot was connected to those three ports. Once the robot was connected, targeted to the pelvis, from the console starting on the right side I was able to make a curved incision into the peritoneum. Preperitoneal space was dissected free posteriorly and laterally, then going medial. There is a large direct space hernia involving the bladder. This was carefully reduced. Once that was completed I was able to easily identify all of the cord structures as well as the pubic symphysis. There was another indirect hernia that was reduced as well. Once that was completely reduced posteriorly, the dissection was complete. Next, using #2-0 V-Loc I was able to close the direct defect starting medial going lateral. Once that was completed, Bard 3-D Max medium mesh was placed into the preperitoneal space, sutured to the pubic symphysis using a #2-0 Vicryl suture. The peritoneum was then closed over top of the mesh using a running #2-0 V-Loc, thus completing the right-side. Next, on the left side, the same process was done. There were multiple adhesions taken down from the sigmoid colon that was within the hernia defect. After doing so, I made another curved incision in the peritoneum, carefully dissected free medial, lateral and posterior. There was a large indirect defect on this side and no direct defect. I continued to reduce the hernia sac and free it up from all the cord structures. It was included in a large lipoma as well. Once everything was completely reduced, the large lipoma was transected and brought out. Bard 3-D Max medium size mesh was placed into the preperitoneal space, sutured to pubic symphysis using #2-0 Vicryl suture. Another interrupted #2-0 Vicryl suture was placed superiorly on the mesh to hold it to the rectus muscle posteriorly. The peritoneum was then closed over top of this using a running #2-0 V-Loc suture thus completing the procedure. Once both sides were finished, the ports were removed. The robot was undocked. The abdomen was desufflated. Skin incision closed with #4-0 Vicryl subcuticular sutures. The abdomen was cleaned and dried. Steri-Strips, 4 x 4 and tape were applied thus ending the procedure.
== END 2018-11-29 13:40 | disposition home or self-care (01) ==
LOC: M SDC 05:53
PROVIDERS: ATTEND Surgery
DX: K40.00 Bilateral inguinal hernia, with obstruction, without gangrene, not specified as recurrent (principal); E03.9 Hypothyroidism, unspecified; I10 Essential (primary) hypertension; E11.9 Type 2 diabetes mellitus without complications; K76.6 Portal hypertension; E78.00 Pure hypercholesterolemia, unspecified; K21.9 Gastro-esophageal reflux disease without esophagitis; Z79.51 Long term (current) use of inhaled steroids; Z79.82 Long term (current) use of aspirin; Z79.4 Long term (current) use of insulin; Z79.899 Other long term (current) drug therapy; Z88.5 Allergy status to narcotic agent
CPT/HCPCS: 49650; C1781; J0690; J1885; J2250; J2270; J2405; J2710; J2765; J3010

== ENCOUNTER → 2018-12-23 | Outpatient (CLI) | payer BC, OTHER ==
[~2018-12-23] MED LIST changes: -ASPI1TAB PO; +ASPI81TA26 PO; -MULT1CHW39 PO; +MULT200T7 PO
[2018-12-23 13:59] LABS: CREATININE FOR GFR 1.39 MG/DL (0.70-1.30); GLOMERULAR FILTRATION RATE 53.5 (>42)
== END ==
LOC: M SMT 10:06
PROVIDERS: ATTEND Internal Medicine Gastroenterology
DX: K25.9 Gastric ulcer, unspecified as acute or chronic, without hemorrhage or perforation (principal)

== ENCOUNTER → 2018-12-30 | Outpatient (CLI) | payer BC, OTHER ==
[~2018-12-30] MED LIST changes: +PROHANCE 279.3MG/ML 15ML VIAL (A9576) As Ordered ONE
--- NOTE | 2018-12-30 11:46 | REP ---
MRI ABDOMEN WITHOUT AND WITH IV CONTRAST: HISTORY: Portal hypertension. Comparison CT study October 06, 2018. TECHNIQUE: Axial and coronal T1- and T2-weighted scans were obtained with sequences including spin echo, fast spin echo, diffusion, in- and hpv-az-xiocc, gradient echo, and dynamically acquired post gadolinium enhanced sequential imaging. Gadolinium enhancement dose is 6 mL of intravenous ProHance. Half dose protocol. MRI FINDINGS: There is a 7.2 cm cyst laterally in the left mid kidney. There are smaller cortical cysts bilaterally in the kidneys. No hydronephrosis is seen. No renal mass lesion is observed. The spleen is enlarged measuring 14.0 cm in greatest transverse dimension. No focal splenic lesion is seen. There is no visible ascites. There are some distorted but non-dilated ducts in the head of the pancreas where CT image shows calcifications consistent with chronic pancreatitis. The body and tail of the pancreas are very difficult to discern on MRI but no pancreatic mass lesion is appreciated. There are some collateral vascular channels in the left upper quadrant extending towards the splenic hilus. The left adrenal gland appears somewhat thickened without obvious mass lesion. The intrahepatic biliary tree is slightly prominent unchanged from the March 20, 2018 CT study. The common hepatic duct segment measures 12 mm in diameter. The gallbladder is surgically absent. The left lobe of the liver is quite small. The umbilical vein appears to be recannulated. Dynamically acquired post contrast images show no abnormal pancreatic or hepatic enhancement. IMPRESSION: Splenomegaly and intra-abdominal collaterals are seen compatible with a history of portal hypertension. There is evidence of chronic pancreatitis. The pancreatic body and tail are difficult to evaluate as the appear to be quite small. The left lobe of the liver is quite diminutive. Mildly prominent central intrahepatic and extrahepatic bile ducts. No ascites. Electronically Signed by David Dimas MD 12/30/2018 05:31 P
== END ==
LOC: M RAD 08:56
PROVIDERS: ATTEND Internal Medicine Gastroenterology
DX: K76.6 Portal hypertension (principal); R16.1 Splenomegaly, not elsewhere classified
CPT/HCPCS: 74183; A9576

== ENCOUNTER → 2019-02-19 | Outpatient (REF) | payer BC, OTHER ==
[~2019-02-19] MED LIST changes: -PROHANCE 279.3MG/ML 15ML VIAL (A9576) As Ordered ONE
[2019-02-19 14:42] LABS: APPEARANCE, URINE CLEAR (CLEAR); BACTERIA, URINE AUTO NEGATIVE (NEGATIVE); BILIRUBIN, URINE AUTO NEGATIVE (NEGATIVE); BLOOD, URINE BLOOD NEGATIVE (NEGATIVE); COLOR, URINE YELLOW (YELLOW); GLUCOSE, URINE (UA) AUTO NEGATIVE (NEGATIVE); KETONE, URINE AUTO NEGATIVE (NEGATIVE); LEUKOCYTE ESTERASE, URINE AUTO NEGATIVE (NEGATIVE); NITRITE, URINE AUTO NEGATIVE (NEGATIVE); PROTEIN, URINE AUTO 1+ mg/dL (NEGATIVE); RBC, URINE AUTO 2 /HPF (0-3); SPECIFIC GRAVITY URINE AUTO 1.014 (1.002-1.035); SQUAMOUS EPITHELIAL CELL UR AU 0 /HPF (0-6); WBC, URINE AUTO 7 /HPF (0-3)
== END ==
LOC: M SMT 13:30
PROVIDERS: ATTEND Nurse Practitioner Family
DX: R30.0 Dysuria (principal)

== ENCOUNTER 2019-03-14 09:00 | Day surgery (SDC) | payer BC, OTHER ==
[~2019-03-14] VITALS: Ht 175.3 cm; Wt 69.6 kg
[~2019-03-14 09:00] MED LIST changes: +MULTCAP PO; +NS 1,000 ML IV ONE
[2019-03-14] MEDS ORDERED: DEXTROSE 50% 50 ML SYRINGE As Ordered ONE (09:50)
[2019-03-14] MEDS ORDERED: DEXTROSE 50% 50 ML SYRINGE IV ONE (10:00)
[2019-03-14] MEDS ORDERED: LIDOCAINE 2% INJ 100 MG/5 ML SDV (FOR ANES.) As Ordered ONE (10:23)
[2019-03-14] MEDS ORDERED: fentaNYL 100 MCG/2 ML INJECTION (J3010) As Ordered ONE (10:23)
[2019-03-14] MEDS ORDERED: PROPOFOL 500 MG/50 ML VIAL As Ordered ONE ×2 (10:23→11:19)
[2019-03-14] MEDS ORDERED: GLUCAGON FOR INJ 1 MG VIAL (J1610) As Ordered ONE (11:11)
--- NOTE | 2019-03-14 12:03 | ROOR ---
Patient Name: Marlin Gar Procedure Date: 03/14/2019 10:12 AM Date of : 1945 Age: 73 Room: [facility] Gender: Male Note Status: Finalized Procedure: Upper GI endoscopy Indications: Follow-up of gastric ulcer Providers: Adi York MD Referring MD: Brenden LEOS MD Requesting Provider: Medicines: Monitored Anesthesia Care Complications: No immediate complications. Procedure: Pre-Anesthesia Assessment: - Prior to the procedure, a History and Physical was performed, and patient medications and allergies were reviewed. The patient is competent. The risks and benefits of the procedure and the sedation options and risks were discussed with the patient. All questions were answered and informed consent was obtained. Patient identification and proposed procedure were verified by the physician, the nurse and the anesthesiologist in the procedure room. Mental Status Examination: alert and oriented. Airway Examination: normal oropharyngeal airway and neck mobility. Respiratory Examination: clear to auscultation. CV Examination: normal. Prophylactic Antibiotics: The patient does not require prophylactic antibiotics. Prior Anticoagulants: The patient has taken no previous anticoagulant or antiplatelet agents. ASA Grade Assessment: III - A patient with severe systemic disease. After reviewing the risks and benefits, the patient was deemed in satisfactory condition to undergo the procedure. The anesthesia plan was to use monitored anesthesia care (MAC). Immediately prior to administration of medications, the patient was re-assessed for adequacy to receive sedatives. The heart rate, respiratory rate, oxygen saturations, blood pressure, adequacy of pulmonary ventilation, and response to care were monitored throughout the procedure. The physical status of the patient was re-assessed after the procedure. The Endoscope was introduced through the mouth, and advanced to the second part of duodenum. The upper GI endoscopy was accomplished without difficulty. The patient tolerated the procedure well. Findings: The Z-line was regular and was found 42 cm from the incisors. There is no endoscopic evidence of varices in the middle third of the esophagus and in the lower third of the esophagus. A 10 mm healed ulcer was found at the pylorus. The scar tissue was healthy in appearance. Adjacent mucosal findings include congestion, edema and inflammation. Biopsies were taken with a cold forceps for histology. Verification of patient identification for the specimen was done by the physician and nurse using the patient's name, date and medical record number. Estimated blood loss was minimal. 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 They were medium in largest diameter. A moderate post-ulcer deformity was found in the duodenal bulb. Normal mucosa was found in the duodenal bulb and in the second portion of the duodenum. Biopsies for histology were taken with a cold forceps for evaluation of celiac disease. Impression: - Z-line regular, 42 cm from the incisors. - Scar in the pylorus. Biopsied. 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 - Duodenal deformity. - Normal mucosa was found in the duodenal bulb and in the second portion of the duodenum. Biopsied. Recommendation: - Patient has a contact number available for emergencies. The signs and symptoms of potential delayed complications were discussed with the patient. Return to normal activities tomorrow. Written discharge instructions were provided to the patient. - Resume previous diet. - Continue present medications. - Await pathology results. 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 - Return to GI clinic in [facility] (address [address], [address], [place], [address]) in 4 -- 6 weeks. Please call GI clinic @ [phone] for apppointment date and time. - Return to primary care physician. Adi York MD Adi York MD 03/14/2019 12:03:12 PM Electronically signed by Adi York MD Number of Addenda: 0 Note Initiated On: 03/14/2019 10:12 AM Estimated Blood Loss: Estimated blood loss was minimal.
[2019-03-14 12:33] VITALS: BP 168/79
--- NOTE | 2019-03-14 12:44 | ROOR ---
Patient Name: Marlin Gar Procedure Date: 03/14/2019 10:13 AM Date of : 1945 Age: 73 Room: [facility] Gender: Male Note Status: Finalized Procedure: Colonoscopy Indications: High risk colon cancer surveillance: Personal history of colonic polyps, Incidental - For therapy of adenomatous polyps in the colon Providers: Adi York MD Referring MD: Brenden LEOS MD Requesting Provider: Medicines: Monitored Anesthesia Care Complications: No immediate complications. Procedure: Pre-Anesthesia Assessment: - Prior to the procedure, a History and Physical was performed, and patient medications and allergies were reviewed. The patient is competent. The risks and benefits of the procedure and the sedation options and risks were discussed with the patient. All questions were answered and informed consent was obtained. Patient identification and proposed procedure were verified by the physician, the nurse and the anesthesiologist in the procedure room. Mental Status Examination: alert and oriented. Airway Examination: normal oropharyngeal airway and neck mobility. Respiratory Examination: clear to auscultation. CV Examination: normal. Prophylactic Antibiotics: The patient does not require prophylactic antibiotics. Prior Anticoagulants: The patient has taken no previous anticoagulant or antiplatelet agents. ASA Grade Assessment: III - A patient with severe systemic disease. After reviewing the risks and benefits, the patient was deemed in satisfactory condition to undergo the procedure. The anesthesia plan was to use monitored anesthesia care (MAC). Immediately prior to administration of medications, the patient was re-assessed for adequacy to receive sedatives. The heart rate, respiratory rate, oxygen saturations, blood pressure, adequacy of pulmonary ventilation, and response to care were monitored throughout the procedure. The physical status of the patient was re-assessed after the procedure. The Colonoscope was introduced through the anus and advanced to the cecum, identified by appendiceal orifice and ileocecal valve. The colonoscopy was performed without difficulty. The patient tolerated the procedure well. The quality of the bowel preparation was fair. The ileocecal valve, appendiceal orifice, and rectum were photographed. Scope insertion time was 5 minutes. Scope withdrawal time was 20 minutes. The total duration of the procedure was 25 minutes. Findings: The perianal and digital rectal examinations were normal. Many sessile polyps were found in the recto-sigmoid colon, descending colon, transverse colon, ascending colon and cecum. The polyps were 8 to 15 mm in size. These polyps were removed with a hot snare. Resection and retrieval were complete. To close a defect after polypectomy, three hemostatic clips were successfully placed. There was no bleeding at the end of the procedure. Two medium-sized angioectasias without bleeding were found in the cecum. Multiple small and large-mouthed diverticula were found in the sigmoid colon. There was no evidence of diverticular bleeding. Non-bleeding external and internal hemorrhoids were found during retroflexion. The hemorrhoids were medium-sized. Impression: - Preparation of the colon was fair. - Many 8 to 15 mm polyps at the recto-sigmoid colon, in the descending colon, in the transverse colon, in the ascending colon and in the cecum, removed with a hot snare. Resected and retrieved. Clips were placed. - Two non-bleeding colonic angioectasias. - Moderate diverticulosis in the sigmoid colon. There was no evidence of diverticular bleeding. - Non-bleeding external and internal hemorrhoids. Recommendation: - Patient has a contact number available for emergencies. The signs and symptoms of potential delayed complications were discussed with the patient. Return to normal activities tomorrow. Written discharge instructions were provided to the patient. - Full liquid diet for 2 days, then advance as tolerated to high fiber diet. - Continue present medications. - Await pathology results. - Repeat colonoscopy in 1 year for surveillance of multiple polyps. - Return to GI clinic in [facility] (address [address], [address], [place], [address]) in 4 -- 6 weeks. Please call GI clinic @ [phone] for apppointment date and time. - Return to primary care physician. Adi York MD Adi York MD 03/14/2019 12:44:27 PM Electronically signed by Adi York MD Number of Addenda: 0 Note Initiated On: 03/14/2019 10:13 AM Estimated Blood Loss: Estimated blood loss was minimal.
== END 2019-03-14 13:10 | disposition home or self-care (01) ==
LOC: M OPP 09:00
PROVIDERS: ATTEND Internal Medicine Gastroenterology
DX: D12.0 Benign neoplasm of cecum (principal); D12.2 Benign neoplasm of ascending colon; D12.3 Benign neoplasm of transverse colon; D12.4 Benign neoplasm of descending colon; D12.7 Benign neoplasm of rectosigmoid junction; K57.30 Diverticulosis of large intestine without perforation or abscess without bleeding; K64.8 Other hemorrhoids; I86.4 Gastric varices; K31.89 Other diseases of stomach and duodenum; Z86.010 Personal history of colon polyps; Z87.11 Personal history of peptic ulcer disease
CPT/HCPCS: 43239; 45385; 88305; J1610; J3010

== ENCOUNTER → 2019-03-18 | Outpatient (REF) | payer BC, OTHER ==
[~2019-03-18] MED LIST changes: -NS 1,000 ML IV ONE
[2019-03-18 16:37] LABS: BASO % 0.2 % (0.0-1.0); EOS % 0.7 % (0.0-3.0); HEMATOCRIT 38.4 % (42.0-52.0); HEMOGLOBIN 12.4 g/dl (13.5-17.5); LYMPH # 0.4 10^3/uL (1.5-4.5); LYMPH % 9.4 % (24.0-44.0); MEAN CORPUSCULAR HEMOGLOBIN 29.3 pg (27.0-33.0); MEAN CORPUSCULAR HGB CONC 32.3 g/dl (32.0-36.5); MEAN CORPUSCULAR VOLUME 90.8 fl (80.0-96.0); MONO # 0.3 10^3/uL (0.0-0.8); MONO % 5.9 % (0.0-5.0); NEUTROPHILS # 3.6 10^3/uL (1.8-7.7); NEUTROPHILS % 83.6 % (36.0-66.0); RED BLOOD COUNT 4.23 10^6/uL (4.30-6.10); WHITE BLOOD COUNT 4.3 10^3/uL (4.0-10.0)
[2019-03-18 16:39] LABS: PLATELET COUNT, AUTOMATED 93 10^3/uL (150-450)
[2019-03-18 16:51] LABS: ALBUMIN 2.7 GM/DL (3.2-5.2); ALT/SGPT 52 U/L (12-78); BILIRUBIN,TOTAL 1.2 MG/DL (0.2-1.0); BLOOD UREA NITROGEN 13 MG/DL (7-18); CALCIUM LEVEL 8.9 MG/DL (8.8-10.2); CARBON DIOXIDE LEVEL 31 MEQ/L (21-32); CHLORIDE LEVEL 102 MEQ/L (98-107); CHOLESTEROL LEVEL 78 MG/DL (<200); CHOLESTEROL RISK RATIO 1.733 (<5); CREATININE FOR GFR 1.07 MG/DL (0.70-1.30); GLOMERULAR FILTRATION RATE > 60.0 (>42); GLUCOSE, FASTING 65 MG/DL (70-100); HDL CHOLESTEROL 45 MG/DL (>40); LDL CHOLESTEROL 22 MG/DL (<100); NON-HDL-C 33 MG/DL; POTASSIUM SERUM 3.8 MEQ/L (3.5-5.1); SODIUM LEVEL 140 MEQ/L (136-145); TOTAL PROTEIN 7.3 GM/DL (6.4-8.2); TRIGLYCERIDES LEVEL 54 MG/DL (<150)
[2019-03-18 17:08] LABS: CREATININE, URINE 86.5 MG/DL; MAU/CREAT RATIO 336.4 MCG/MG (0.0-30.0)
[2019-03-18 19:15] LABS: HEMOGLOBIN A1c 7.9 %
== END ==
LOC: M SFHCLERA 11:25
PROVIDERS: ATTEND Family Medicine
DX: R19.09 Other intra-abdominal and pelvic swelling, mass and lump (principal); E11.65 Type 2 diabetes mellitus with hyperglycemia

== ENCOUNTER → 2019-03-18 | Outpatient (CLI) | payer BC, OTHER ==
--- NOTE | 2019-03-18 12:28 | REP ---
Clinical: Right groin pain. Technique: Neutral and frog lateral views of the right hip. Findings: Osseous structures, joint spaces, and surrounding soft tissues are normal for age. Impression: Age-appropriate right hip radiographs. Electronically Signed by Denver Jamil MD 03/18/2019 12:20 P
== END ==
LOC: M LRY 11:43
PROVIDERS: ATTEND Family Medicine
DX: R10.31 Right lower quadrant pain (principal)

== ENCOUNTER → 2019-03-21 | Outpatient (REF) | payer BC, OTHER | LOC: M SFHCLERA 13:43 | PROVIDERS: ATTEND Family Medicine | DX: R19.09 Other intra-abdominal and pelvic swelling, mass and lump (principal) ==

== ENCOUNTER → 2019-03-21 | Outpatient (CLI) | payer BC, OTHER ==
--- NOTE | 2019-03-21 10:47 | REP ---
Clinical: Right groin pain/mass with history of bilateral hernia repair. Technique: Real time cortez scale and color evaluation using linear high frequency transducer. Findings: Mesh identified at the right inguinal ring consistent with prior hernia repair. Inferior and distal to the mesh is evidence for residual peritoneal fat and a complex avascular 4.0 x 1.9 x 3.3 cm mass-like ovoid lesion which may represent focal necrotizing fat, complex postsurgical hematoma, and less likely incarcerated bowel. Evaluation of the left groin demonstrates 1.4 x 1.0 x 1.1 cm complex fluid collection medial to the left inguinal ring without obvious fat or bowel. Impression: 1. Complex mass-like area in the right inguinal canal as described above. Differential diagnosis includes but is not limited to focal necrotizing fat, complex postsurgical hematoma, and less likely incarcerated bowel. Electronically Signed by Denver Jamil MD 03/21/2019 10:39 A
== END ==
LOC: M RAD 09:32
PROVIDERS: ATTEND Family Medicine
DX: R10.9 Unspecified abdominal pain (principal)

== ENCOUNTER → 2019-04-07 | Outpatient (CLI) | payer BC, OTHER ==
[~2019-04-07] MED LIST changes: +ALBU0.63 INH; +ALBU83IN INH; +AMLO10TA5 PO; +DECA4TAB PO; +GABA-1171 PO; +HUMA100I3 SC; +HYDR12.55 PO; +INCR1INH INH; +LANTINJ4 SC; -LISI20TA PO; +LISI20TA19 PO; +MORP-69 PO; +NORC1TAB7 PO; +ONDA8TAB10 PO; +PROC10TA4 PO
--- NOTE | 2019-04-07 17:54 | REP ---
Soft-tissue ultrasound right pre sternal region. History: Firm but compressible subcutaneous nodule right distal sternum. Nontender. Findings: Scanning at the area of the palpable abnormality demonstrates a complex hypoechoic area 1.8 x 1.1 x 1.0 cm in diameter involving the costosternal junction of the right anterior rib ends. There are echogenic reflections within the hypoechoic area consistent with calcifications in costal cartilage. This was not compressible by the sonography. No fluid collection is seen. Impression: The palpable area is felt to correspond with a somewhat thickened area of rib cartilage at the costosternal junction to the right of midline. No abnormal fluid collection is seen. No soft tissue mass is appreciated. If additional imaging is felt to be clinically warranted, chest CT and/or chest wall MRI study could be considered. Electronically Signed by David Dimas MD 04/08/2019 07:46 A
== END ==
LOC: M RAD 15:36
PROVIDERS: ATTEND Family Medicine
DX: R22.9 Localized swelling, mass and lump, unspecified (principal)

== ENCOUNTER 2019-04-21 17:11 | Emergency (ER) | payer BC, OTHER ==
[~2019-04-21] VITALS: Ht 175.3 cm; Wt 63.6 kg
[~2019-04-21 17:11] MED LIST changes: -ALBU0.63 INH; -ALBU83IN INH; -AMLO10TA5 PO; -DECA4TAB PO; -GABA-1171 PO; -HUMA100I3 SC; -HYDR12.55 PO; -INCR1INH INH; -LANTINJ4 SC; +LISI20TA18 PO; -LISI20TA19 PO; -MORP-69 PO; -NORC1TAB7 PO; -ONDA8TAB10 PO; -PROC10TA4 PO
[2019-04-21] MEDS ORDERED: ALBU0.63 INH (17:40)
[2019-04-21] MEDS ORDERED: NS 1,000 ML IV ONE (17:45)
--- NOTE | 2019-04-21 17:58 | REP ---
Clinical : Acute chest pain. Comparison: 08/05/2018. Findings: Mediastinum and cardiac silhouette are stable. Lung newberry demonstrate diffuse chronic interstitial changes. Left hilar opacity and small nodule in the right mid lung zone cannot be excluded. No effusion. No pneumothorax. Skeletal structures demonstrate age-related degenerative changes. Impression: Subtle left hilar opacity and small nodule in the right mid lung zone cannot be excluded. Electronically Signed by Denver Jamil MD 04/21/2019 05:50 P
[2019-04-21 18:32] LABS: VENOUS BASE EXCESS -1.2 (-2.0-2.0); VENOUS HCO3 25.8 MEQ/L (23.0-27.0); VENOUS O2 SATURATION 62.3 % (60.0-80.0); VENOUS PARTIAL PRESSURE CO2 52.9 mmHg (38.0-50.0); VENOUS PARTIAL PRESSURE O2 32.1 mmHg (30.0-50.0); VENOUS PH 7.306 UNITS (7.330-7.430); VENOUS STANDARD HCO3 22.7 MEQ/L; VENOUS TOTAL CO2 27.4 MEQ/L (24.0-28.0)
[2019-04-21 18:36] LABS: BASO % 0.4 % (0.0-1.0); EOS # 0.1 10^3/uL (0.0-0.50); EOS % 1.7 % (0.0-3.0); HEMATOCRIT 39.4 % (42.0-52.0); HEMOGLOBIN 12.7 g/dl (13.5-17.5); LYMPH # 0.7 10^3/uL (1.5-4.5); MEAN CORPUSCULAR HEMOGLOBIN 29.6 pg (27.0-33.0); MEAN CORPUSCULAR HGB CONC 32.2 g/dl (32.0-36.5); MEAN CORPUSCULAR VOLUME 91.8 fl (80.0-96.0); MONO # 0.2 10^3/uL (0.0-0.8); MONO % 5.1 % (0.0-5.0); NEUTROPHILS # 3.6 10^3/uL (1.8-7.7); NEUTROPHILS % 77.2 % (36.0-66.0); RED BLOOD COUNT 4.29 10^6/uL (4.30-6.10); WHITE BLOOD COUNT 4.7 10^3/uL (4.0-10.0)
[2019-04-21 18:47] LABS: INR 1.37; PROTHROMBIN TIME 16.6 SECONDS (11.8-14.0)
[2019-04-21 19:00] LABS: PLATELET COUNT, AUTOMATED 67 10^3/uL (150-450)
[2019-04-21 19:05] LABS: ALBUMIN 2.7 GM/DL (3.2-5.2); BILIRUBIN,DIRECT 0.3 MG/DL (0.0-0.2); BILIRUBIN,TOTAL 0.4 MG/DL (0.2-1.0); CALCIUM LEVEL 11.5 MG/DL (8.8-10.2); CK-MB VALUE MASS 1.6 NG/ML (<3.6); CREATININE FOR GFR 1.62 MG/DL (0.70-1.30); GLOMERULAR FILTRATION RATE 44.8 (>42); MB/CK RELATIVE INDEX 4.57 (< OR =4); POTASSIUM SERUM 4.2 MEQ/L (3.5-5.1); TOTAL PROTEIN 7.1 GM/DL (6.4-8.2); TROPONIN I 0.02 NG/ML (< 0.10)
[2019-04-21 19:53] VITALS: BP 160/70
--- NOTE | 2019-04-23 19:17 | ECGEPIP ---
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
--- NOTE | 2019-04-28 20:34 | ED PDOC ---
Post-Departure Follow-Up dr delarosa faxed formal report of cxr for fu ishang Rohith Monzon MD Apr 28, 2019 20:34
[2019-05-13] MEDS ORDERED: HUMA100I3 SC (09:45)
[2019-05-13] MEDS ORDERED: LANTINJ4 SC (09:45)
[2019-05-13] MEDS ORDERED: MORP-69 PO (09:45)
[2019-05-13] MEDS ORDERED: DECA4TAB PO (11:31)
== END 2019-04-21 19:57 | disposition home or self-care (01) ==
LOC: M ED 17:11
DX: R91.1 Solitary pulmonary nodule (principal); N19 Unspecified kidney failure; R00.8 Other abnormalities of heart beat; E86.0 Dehydration; E11.9 Type 2 diabetes mellitus without complications; I10 Essential (primary) hypertension; E78.5 Hyperlipidemia, unspecified; Z79.899 Other long term (current) drug therapy; Z79.82 Long term (current) use of aspirin; Z79.4 Long term (current) use of insulin; Z88.5 Allergy status to narcotic agent; F17.210 Nicotine dependence, cigarettes, uncomplicated

== ENCOUNTER 2019-05-08 19:16 | Emergency (ER) | payer BC, OTHER ==
[~2019-05-08] VITALS: Ht 175.3 cm; Wt 66.4 kg
[~2019-05-08 19:16] MED LIST changes: -ALBU83IN INH; -AMLO10TA5 PO; -DECA4TAB PO; -GABA-1171 PO; -HUMA100I3 SC; -INCR1INH INH; -LANTINJ4 SC; -LISI20TA18 PO; +LISI20TA19 PO; -MORP-69 PO; -NORC1TAB7 PO
[2019-05-08 21:14] LABS: ALBUMIN 2.9 GM/DL (3.2-5.2); BILIRUBIN,DIRECT 0.8 MG/DL (0.0-0.2); BILIRUBIN,TOTAL 1.1 MG/DL (0.2-1.0); C REACTIVE PROTEIN QUANTITATIV 1.24 MG/DL (0.00-0.30); CALCIUM LEVEL 12.7 MG/DL (8.8-10.2); CREATININE FOR GFR 1.65 MG/DL (0.70-1.30); GLOMERULAR FILTRATION RATE 43.9 (>42); POTASSIUM SERUM 4.3 MEQ/L (3.5-5.1); TOTAL PROTEIN 7.5 GM/DL (6.4-8.2)
[2019-05-08 21:18] LABS: BASO % 0.4 % (0.0-1.0); EOS # 0.1 10^3/uL (0.0-0.50); EOS % 1.4 % (0.0-3.0); HEMATOCRIT 39.8 % (42.0-52.0); LYMPH # 0.6 10^3/uL (1.5-4.5); MEAN CORPUSCULAR HEMOGLOBIN 29.7 pg (27.0-33.0); MEAN CORPUSCULAR HGB CONC 32.7 g/dl (32.0-36.5); MEAN CORPUSCULAR VOLUME 91.1 fl (80.0-96.0); MONO # 0.3 10^3/uL (0.0-0.8); MONO % 5.8 % (0.0-5.0); NEUTROPHILS # 4.5 10^3/uL (1.8-7.7); NEUTROPHILS % 80.7 % (36.0-66.0); PLATELET COUNT, AUTOMATED 100 10^3/uL (150-450); RED BLOOD COUNT 4.37 10^6/uL (4.30-6.10); WHITE BLOOD COUNT 5.5 10^3/uL (4.0-10.0)
[2019-05-08] MEDS ORDERED: NS 1,000 ML IV ONE ×2 (21:30→23:15)
[2019-05-08] MEDS ORDERED: MORPHINE 2 MG/ML 1ML VIAL (J2270) IV ONE (21:30)
[2019-05-08 21:53] LABS: ERYTHROCYTE SEDIMENTATION RATE 50 mm/hr (0-20)
[2019-05-08] MEDS ORDERED: ISOVUE-370 76% 100ML VIAL (Q9967) As Ordered ONE (23:33)
[2019-05-09] MEDS ORDERED: MORPHINE 2 MG/ML 1ML VIAL (J2270) IV ONE (00:45)
--- NOTE | 2019-05-09 01:28 | REPVR ---
EXAM: CT Chest With Contrast EXAM DATE/TIME: 05/08/2019 11:40 PM CLINICAL HISTORY: 73 years old, male; Pain; Other: Back; Additional info: Back pain, decreased appetite TECHNIQUE: Imaging protocol: Axial computed tomography images of the chest with intravenous contrast. Coronal and sagittal reformatted images were created and reviewed. Radiation optimization: All CT scans at this facility use at least one of these dose optimization techniques: automated exposure control; mA and/or kV adjustment per patient size (includes targeted exams where dose is matched to clinical indication); or iterative reconstruction. Contrast material: ISOVUE 370;Contrast volume: 100 ml;Contrast route: IV; COMPARISON: No relevant prior studies available. FINDINGS: Lungs: Calcified granuloma in the left upper lobe. Mild right basilar atelectasis. Small airspace opacities in the anterior left lobe and small areas of consolidation in the lingula and groundglass densities in the lower lobe. Pleural space: Pleural based nodule in the posterior left upper lobe measuring 22 x 26 mm. Small left pleural effusion. Heart: Mild cardiomegaly. Coronary calcifications. Mediastinum: Large left mediastinal/hilar necrotic soft tissue mass causing moderate narrowing of the left mainstem bronchus and severe narrowing of the left lower lobe main pulmonary artery. Soft tissue densities extending from the left pretracheal region to the subcarinal region and left hilum with central areas of necrosis. It is measuring approximately 3.4 x 8.0 x 5.9 cm (AP by transverse by craniocaudal) . Aorta: Atherosclerosis. No aortic aneurysm. Lymph nodes: Another right-sided subcarinal enlarged lymph node is seen measuring 16.2 mm. Bones/joints: Diffuse demineralization of the bones with degenerative changes. Age-indeterminate fracture off the lateral fourth rib and fifth rib may represent pathological fractures. It was a fracture deformity of the posterior lateral sixth rib with soft tissue component and below thickening concerning for metastatic disease. Multiple lytic lucencies throughout the thoracic spine most marked T2 and T3 of 50% loss of height of T12 without retropulsion likely pathological. Lytic lucencies in the visualized C7. Degenerative changes. Soft tissues: Asymmetrical soft tissue nodular density adjacent to the right side of the sternum measuring 11 x 33 mm. IMPRESSION: Large left mediastinal/hilar necrotic soft tissue mass causing moderate narrowing of the left mainstem bronchus and severe narrowing of the left lower lobe main pulmonary artery. Soft tissue densities extending from the left pretracheal region to the subcarinal region and left hilum with central areas of necrosis. It is measuring approximately 3.4 x 8.0 x 5.9 cm (AP by transverse by craniocaudal) . Findings are concerning for hilar mass with adjacent necrotic lymphadenopathy in the mediastinum right hilum, initial workup was recommended. Pleural based nodule in the posterior left upper lobe measuring 22 x 26 mm. Small left pleural effusion. 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 Electronically signed by: Deloris Gonzalez On 05/09/2019 01:28:23 AM
--- NOTE | 2019-05-09 01:48 | REPVR ---
EXAM: CT Abdomen and Pelvis With Contrast EXAM DATE/TIME: 05/08/2019 11:40 PM CLINICAL HISTORY: 73 years old, male; Pain; Other: Back; Additional info: Back pain, decreased appetite TECHNIQUE: Imaging protocol: Axial computed tomography images of the abdomen and pelvis with intravenous contrast. Coronal and sagittal reformatted images were created and reviewed. Radiation optimization: All CT scans at this facility use at least one of these dose optimization techniques: automated exposure control; mA and/or kV adjustment per patient size (includes targeted exams where dose is matched to clinical indication); or iterative reconstruction. Contrast material: ISOVUE 370;Contrast volume: 100 ml;Contrast route: IV; COMPARISON: CT ABD PELVIS W/O FOL BY WIT 03/20/2018 1:20 PM FINDINGS: Liver: Liver is enlarged with diffuse fatty infiltration and heterogeneous appearance without any large lesions, however, small metastatic lesions cannot be completely excluded further evaluation with MR is recommended. Gallbladder and bile ducts: Normal. No calcified stones. No ductal dilation. Pancreas: Coarse calcifications within the head of the pancreas consistent with chronic pancreatitis. Pancreatic head lesion cannot be completely excluded, this can further be assessed on MR examination. Spleen: Splenic peripheral calcifications likely prior trauma, stable. Adrenals: Nodule abutting the left limb of the right adrenal gland measuring approximately 25 x 18 x 22 mm. Large mass in the left adrenal gland with irregular margins measuring 27 x 27 x 23 mm. Kidneys and ureters: Stable cyst in the interpolar region of the left kidney. Stomach and bowel: Normal. No obstruction. No mucosal thickening. Moderate fecal loading of the colon. Appendix: No evidence of appendicitis. Intraperitoneal space: No free air. Mesenteric edema. Trace ascites. Vasculature: Atherosclerosis of the aorta and its branches. Multiple splenic varices. Small portal vein. Findings may represent portal hypertension. Lymph nodes: Multiple retroperitoneal/para-aortic enlarged lymph nodes measuring up to 15 mm. Pelvic enlarged lymph node measuring 11 mm. Multiple subcentimeter soft tissue densities in the mesentery likely small lymph nodes. Bladder: Distended urinary bladder with mild thickening of the bladder wall likely secondary to outlet obstruction. Reproductive: Heterogeneous mild enlargement of the prostate with calcifications causing mass effect on the base of the bladder measuring about 5.0 x 6.1x 7.4 Subperitoneal space: Presacral edema and small fluid. Bones/joints: Diffuse lytic lesions within the visualized bones. Largest lytic lesion is seen in the L2 vertebral body with mild loss of height of superior endplate likely pathological. No retropulsion. Multiple lytic lesions in bilateral iliac bones and sacrum with soft tissue density abutting the lytic lesions of the iliac bones, largest one is on the left side measuring up to 21 mm. Sacral soft tissue densities measuring up to 28 mm. Soft tissues: Anasarca. Right inguinal canal density measuring 14 mm. Findings may represent enlarged lymph nodes. Multiple subcentimeter bilateral inguinal lymph nodes are also seen. Soft tissue nodule in the anterior pelvic wall measuring 9.2 mm. IMPRESSION: Liver is enlarged with diffuse fatty infiltration and heterogeneous appearance without any large lesions, however, small metastatic lesions cannot be completely excluded further evaluation with MR is recommended. Coarse calcifications within the head of the pancreas consistent with chronic pancreatitis. Pancreatic head lesion cannot be completely excluded, this can further be assessed on MR examination. Bilateral adrenal lesions, left larger than right, new from prior study concerning for metastatic disease. Heterogeneous mild enlargement of the prostate with calcifications causing mass effect on the base of the bladder measuring about 5.0 x 6.1x 7.4 .Distended urinary bladder with mild thickening of the bladder wall likely secondary to outlet obstruction. Multiple lymph nodes as described in detail above. Trace ascites. Diffuse lytic metastatic disease to the visualized bones with soft tissue components as described in detail above. COMMENT: Consistent with the [employer]'s Incidental Findings Committee Report (J Am Diana Radiol 2010): Unless the patient's specific circumstances suggest otherwise, any liver lesion 0.5 cm or less, any cystic kidney lesion less than 1.0 cm, and/or any adrenal lesion 1.0 cm or less not otherwise characterized in this report as possessing suspicious or indeterminate imaging features is/are highly likely to be benign and do not require follow-up imaging or biopsy. Electronically signed by: Deloris Gonzalez On 05/09/2019 01:47:41 AM
[2019-05-09] MEDS ORDERED: NORC1TAB7 PO (02:43)
[2019-05-09 02:47] VITALS: BP 184/78
[2019-05-09] MEDS ORDERED: NORCO 5/325MG TABLET (BULK FOR ED) PO ONE (03:00)
--- NOTE | 2019-05-09 07:19 | ECGEPIP ---
[facility] - ED Test Date: 2019-05-08 Pat Name: CARTER PADILLA Department: Room: - Gender: Male Punchboard Inserter: MARIANNE : 1945 Requested By: Marie Grewal AMBULATORY NURSE Order Number: [id number] Reading MD: Gunner Sam Measurements Intervals [place] Rate: 80 P: 35 WI: 182 QRS: -20 QRSD: 110 T: 35 QT: 361 QTc: 417 Interpretive Statements SINUS RHYTHM WITH FREQUENT VENTRICULAR PREMATURE COMPLEXES IN A BIGEMINAL PATTERN NONSPECIFIC T-WAVE ABNORMALITY SIMILAR TO 04/21/19 Electronically Signed on 05-09-2019 7:19:14 EDT by Gunner Sam
--- NOTE | 2019-05-11 21:00 | ED PDOC ---
Post-Departure Follow-Up dr delarosa and dr ross faxed formal report of ct chest and ct abd/p for fu Rohith Pierre MD May 11, 2019 21:00
[2019-05-13] MEDS ORDERED: LANTINJ4 SC (09:45)
[2019-05-13] MEDS ORDERED: HUMA100I3 SC (09:45)
[2019-05-13] MEDS ORDERED: MORP-69 PO (09:45)
[2019-05-13] MEDS ORDERED: DECA4TAB PO (11:31)
[2019-05-22] MEDS ORDERED: ONDA8TAB10 PO (09:28)
[2019-05-22] MEDS ORDERED: PROC10TA4 PO (09:28)
[2019-05-23] MEDS ORDERED: HYDR12.55 PO (09:51)
== END 2019-05-09 03:15 | disposition home or self-care (01) ==
LOC: M ED 19:16
DX: J98.59 Other diseases of mediastinum, not elsewhere classified (principal); C79.51 Secondary malignant neoplasm of bone; E27.9 Disorder of adrenal gland, unspecified; M84.58XA Pathological fracture in neoplastic disease, other specified site, initial encounter for fracture; K76.0 Fatty (change of) liver, not elsewhere classified; I10 Essential (primary) hypertension; E78.00 Pure hypercholesterolemia, unspecified; M54.9 Dorsalgia, unspecified; N40.0 Benign prostatic hyperplasia without lower urinary tract symptoms; Z72.0 Tobacco use; Z87.19 Personal history of other diseases of the digestive system; Z79.82 Long term (current) use of aspirin; Z79.4 Long term (current) use of insulin; Z79.899 Other long term (current) drug therapy; Z88.5 Allergy status to narcotic agent
CPT/HCPCS: 71260; 74177; 80047; 80048; 80076; 82150; 83690; 85025; 85379; 85652; 86140; 93005; 96374; 99284; J2270; Q9967

== ENCOUNTER → 2019-05-08 | Outpatient (CLI) | payer BC, OTHER ==
[~2019-05-08] MED LIST changes: +ALBU0.63 INH; +ALBU83IN INH; +AMLO10TA5 PO; +DECA4TAB PO; +GABA-1171 PO; +HUMA100I3 SC; +INCR1INH INH; +LANTINJ4 SC; +MORP-69 PO; +NORC1TAB7 PO
--- NOTE | 2019-05-08 16:27 | REP ---
Thoracic spine series: Six views. History: Upper back pain. Findings: Thoracic vertebral body heights are preserved. Alignment is normal. There is degenerative disc disease in the thoracic spine diffusely. There is a rounded radiodensity overlying the posterior elements of the mid thoracic spine on the lateral radiograph suggesting a mass lesion. This measures approximately 3.8 cm in greatest diameter. It is hard to localize on the frontal view, but appears to be left-sided, perihilar in position. In addition, there are radiolucent changes in the left 4th rib suggesting skeletal metastatic disease. There is pleuroparenchymal change in the left base posteriorly and the left hemidiaphragm is somewhat elevated. These are new changes compared with the prior chest x-ray from August 05, 2018. Chest CT study is recommended. Impression: Possible left lung or paraspinal mass. Two areas of rib destruction in the left fourth rib. Recommend chest CT study with IV contrast. Electronically Signed by David Dimas MD 05/08/2019 05:41 P
--- NOTE | 2019-05-08 16:33 | REP ---
C-spine series: Seven views: History: Chronic pain not improving. Findings: The patient is edentulous. Lateral views done in flexion and extension and neutral position show no subluxation or instability. Cervical vertebral body heights are preserved. There is degenerative disc disease at C3-4, C4-5, C5-6, and C6-7. Oblique radiographs demonstrate intact neural foramina bilaterally with minimal uncovertebral spurring on the right C3-4. There is mild facet hypertrophy on AP and open mouth odontoid views. No bony destructive lesion is appreciated. Impression: Mild degenerative disc and osteoarthritic facet disease. Electronically Signed by David Dimas MD 05/08/2019 05:41 P
== END ==
LOC: M LRY 13:01
PROVIDERS: ATTEND Family Medicine
DX: M25.78 Osteophyte, vertebrae (principal); M50.321 Other cervical disc degeneration at C4-C5 level; M50.322 Other cervical disc degeneration at C5-C6 level; M50.323 Other cervical disc degeneration at C6-C7 level

== ENCOUNTER → 2019-05-09 | Outpatient (REF) | payer BC, OTHER ==
[~2019-05-09] MED LIST changes: +ALBU83IN INH; +AMLO10TA5 PO; +DECA4TAB PO; +GABA-1171 PO; +HUMA100I3 SC; +HYDR12.55 PO; +INCR1INH INH; +LANTINJ4 SC; +MORP-69 PO; +NORC1TAB7 PO; +ONDA8TAB10 PO; +PROC10TA4 PO
== END ==
LOC: M SFHCLERA 18:33
PROVIDERS: ATTEND Family Medicine
DX: E83.52 Hypercalcemia (principal)

== ENCOUNTER → 2019-05-10 | Outpatient (CLI) | payer BC, OTHER ==
[~2019-05-10] MED LIST changes: -HYDR12.55 PO; +LISI20TA18 PO; -LISI20TA19 PO; -ONDA8TAB10 PO; -PROC10TA4 PO
[2019-05-10 14:18] LABS: IONIZED CALCIUM 6.1 MG/DL (4.5-5.3)
[2019-05-10 15:15] LABS: URINE TOTAL PROTEIN 74.2 MG/DL (0-12)
[2019-05-10 15:36] LABS: ALBUMIN 2.6 GM/DL (3.2-5.2); ALT/SGPT 29 U/L (12-78); BILIRUBIN,TOTAL 0.7 MG/DL (0.2-1.0); BLOOD UREA NITROGEN 22 MG/DL (7-18); CALCIUM LEVEL 11.6 MG/DL (8.8-10.2); CARBON DIOXIDE LEVEL 33 MEQ/L (21-32); CHLORIDE LEVEL 106 MEQ/L (98-107); CREATININE FOR GFR 1.55 MG/DL (0.70-1.30); GLOMERULAR FILTRATION RATE 47.2 (>42); GLUCOSE, FASTING 88 MG/DL (70-100); IMMUNOGLOBULIN G 302 MG/DL (681-1648); IMMUNOGLOBULIN M 21.3 MG/DL (40-230); SODIUM LEVEL 142 MEQ/L (136-145); TOTAL PROTEIN 6.8 GM/DL (6.4-8.2)
[2019-05-12 11:40] LABS: PTH INTACT 14.5 PG/ML (18.5-88.0)
[2019-05-13 11:08] LABS: ALBUMIN 2.96 GM/DL (3.29-5.55); ALBUMIN % 43.5 % (55.8-66.1); ALPHA-1-GLOBULIN % 4.3 % (2.9-4.9); ALPHA-1-GLOBULINS 0.29 GM/DL (0.17-0.41); ALPHA-2-GLOBULINS 0.53 GM/DL (0.42-0.99); ALPHA-2-GLOBULINS % 7.8 % (7.1-11.8); BETA-1-GLOBULINS 0.08 GM/DL (0.28-0.60); BETA-1-GLOBULINS % 1.2 % (4.7-7.2); BETA-2-GLOBULINS 0.41 GM/DL (0.19-0.55); GAMMA GLOBULIN % 37.2 % (11.1-18.8); GAMMA GLOBULINS 2.53 GM/DL (0.65-1.58)
[2019-05-15 13:31] LABS: UPEP INTERPRETATION M-SPIKE IN GAMMA; URINE VOLUME RANDOM ML
== END ==
LOC: M LAB 13:45
PROVIDERS: ATTEND Family Medicine
DX: E83.52 Hypercalcemia (principal)

== ENCOUNTER → 2019-05-14 | Outpatient (CLI) | payer BC, OTHER ==
--- NOTE | 2019-05-14 07:58 | REPVR ---
EXAM: CT Head Without Contrast EXAM DATE/TIME: 05/14/2019 7:16 AM CLINICAL HISTORY: 73 years old, male; Condition or disease; Other: Metastic CA TECHNIQUE: Imaging protocol: Computed tomography images of the head without contrast. Radiation optimization: All CT scans at this facility use at least one of these dose optimization techniques: automated exposure control; mA and/or kV adjustment per patient size (includes targeted exams where dose is matched to clinical indication); or iterative reconstruction. COMPARISON: US SOFT TISSUE HEAD AND NECK 08/28/2017 10:33 AM FINDINGS: Brain: There is minimal patchy low attenuation of deep white matter. There is slight prominence of the peripheral sulci. Ventricles: Normal. No ventriculomegaly. Bones/joints: Unremarkable. No acute fracture. Sinuses: Rounded right maxillary sinus mucosal thickening. Mastoid air cells: Visualized mastoid air cells are well aerated. No mastoid effusion. Soft tissues: Unremarkable. IMPRESSION: 1. Minimal chronic ischemic white matter change and atrophy. 2. Small right maxillary retention cyst. 3. Otherwise negative noncontrast head CT. Electronically signed by: Joseph Irizarry On 05/14/2019 07:58:51 AM
[2019-05-14 08:01] LABS: BASO % 0.2 % (0.0-1.0); HEMOGLOBIN 14.2 g/dl (13.5-17.5); LYMPH # 0.4 10^3/uL (1.5-4.5); LYMPH % 8.7 % (24.0-44.0); MEAN CORPUSCULAR HEMOGLOBIN 29.5 pg (27.0-33.0); MEAN CORPUSCULAR VOLUME 89.4 fl (80.0-96.0); NEUTROPHILS # 3.7 10^3/uL (1.8-7.7); NEUTROPHILS % 88.6 % (36.0-66.0); RED BLOOD COUNT 4.81 10^6/uL (4.30-6.10); WHITE BLOOD COUNT 4.1 10^3/uL (4.0-10.0)
[2019-05-14 08:14] LABS: INR 1.51; PROTHROMBIN TIME 17.9 SECONDS (11.8-14.0)
[2019-05-14 08:15] LABS: PARTIAL THROMBOPLASTIN TIME 35.3 SECONDS (25.0-38.4)
[2019-05-14 08:27] LABS: ALBUMIN 2.6 GM/DL (3.2-5.2); BILIRUBIN,TOTAL 0.7 MG/DL (0.2-1.0); CALCIUM LEVEL 11.9 MG/DL (8.8-10.2); CREATININE FOR GFR 2.06 MG/DL (0.70-1.30); POTASSIUM SERUM 4.5 MEQ/L (3.5-5.1); PROSTATIC SPECIFIC AG MONITOR 1.94 NG/ML (< 4.00); TOTAL PROTEIN 7.1 GM/DL (6.4-8.2)
[2019-05-14 08:29] LABS: PLATELET COUNT, AUTOMATED 92 10^3/uL (150-450)
== END ==
LOC: M RAD 07:02 → M LAB 07:02
PROVIDERS: ATTEND Internal Medicine Medical Oncology
DX: C79.9 Secondary malignant neoplasm of unspecified site (principal); K09.1 Developmental (nonodontogenic) cysts of oral region

== ENCOUNTER 2019-05-15 06:00 | Inpatient (IN) | payer BC, OTHER ==
[~2019-05-15] VITALS: Ht 175.3 cm; Wt 68.0 kg
[~2019-05-15 06:00] MED LIST changes: -ALBU83IN INH; -AMLO10TA5 PO; -GABA-1171 PO; -INCR1INH INH
[2019-05-15 06:39] LABS: BASO % 0.2 % (0.0-1.0); HEMATOCRIT 40.3 % (42.0-52.0); HEMOGLOBIN 13.3 g/dl (13.5-17.5); LYMPH # 0.6 10^3/uL (1.5-4.5); MEAN CORPUSCULAR HEMOGLOBIN 29.4 pg (27.0-33.0); MONO # 0.8 10^3/uL (0.0-0.8); MONO % 7.5 % (0.0-5.0); NEUTROPHILS # 9.1 10^3/uL (1.8-7.7); NEUTROPHILS % 85.6 % (36.0-66.0); PLATELET COUNT, AUTOMATED 105 10^3/uL (150-450); RED BLOOD COUNT 4.53 10^6/uL (4.30-6.10); WHITE BLOOD COUNT 10.7 10^3/uL (4.0-10.0)
[2019-05-15] MEDS: MORPHINE 4 MG/ML 1ML VIAL/SYRINGE (J2270) IV PRN (06:45)
[2019-05-15] MEDS ORDERED: ONDANSETRON 4MG/2ML VIAL (J2405) IV ONE (06:45)
[2019-05-15 07:01] LABS: CALCIUM LEVEL 11.2 MG/DL (8.8-10.2); CK-MB VALUE MASS 3.8 NG/ML (<3.6); CREATININE FOR GFR 2.6 MG/DL (0.70-1.30); MB/CK RELATIVE INDEX 2.88 (< OR =4); POTASSIUM SERUM 3.9 MEQ/L (3.5-5.1); TROPONIN I 0.03 NG/ML (< 0.10)
--- NOTE | 2019-05-15 07:20 | REP ---
Portable chest, 06:24 a.m., single AP view with the patient upright: Comparison is the chest CT dated 2018. By CT the patient has a known left hilar/mediastinal mass with narrowing of the left mainstem bronchus and severe narrowing of the left lower lobe bronchus. On the comparison CT there is a cleft pleural effusion. There is effacement left costophrenic angle on the study today, compatible with left pleural effusion. There is a 9 mm nodule inferolaterally in the left lung. By CT. This is a calcified granuloma posteriorly in the lingula. There is periosteal reactive change at the left fifth rib laterally. On the CT there is a slightly expansile lesion laterally in the left fifth rib with periosteal reactive change. By CT there is a pleural-based 3.8 cm mass posteriorly in the superior segment of the left upper lobe. This is difficult to visualize on the plain film study today but I suspect there is a subtle density just superolateral to the left hilus and could represent this mass. Additionally, by CT there are lytic skeletal metastases in the thoracic spine and bilateral ribs. The left lung is clear. Cardiac size is mildly enlarged. The right hilus, mediastinum and skeletal structures are otherwise unremarkable on plain films. There are surgical clips in the abdominal right upper quadrant. Impression: Known left hilar /mediastinal mass. Known left pleural effusion. Effacement of the left costophrenic angle. Periosteal reactive change laterally in the left fifth rib as described. Calcified granuloma inferolaterally in the left lung. Multiple skeletal metastases. By CT. By CT there is a pleural-based 3.8 cm mass posteriorly in the superior segment of the left upper lobe. This is difficult to visualize on the plain film study today but I suspect there is a subtle density just superolateral to the left hilus and could represent this mass. Electronically Signed by Brenden Herndon MD 05/15/2019 07:12 A
[2019-05-15] MEDS ORDERED: NS 1,000 ML IV SCH (07:29)
[2019-05-15] MEDS ORDERED: MORPHINE 4 MG/ML 1ML VIAL/SYRINGE (J2270) IV ONE (07:30)
[2019-05-15] MEDS ORDERED: IPRATROPIUM 0.5MG/ALBUTEROL 2.5MG INH SOL UD 3ML (DUONEB)(J7620) NEB ONE (07:45)
[2019-05-15] MEDS ORDERED: ALBU83IN INH (09:23)
[2019-05-15] MEDS ORDERED: GABA-1171 PO (09:24)
[2019-05-15] MEDS ORDERED: AMLO10TA5 PO (09:27)
[2019-05-15] MEDS ORDERED: INCR1INH INH (09:29)
[2019-05-15] MEDS ORDERED: ADVA115A INH (09:29)
[2019-05-15] MEDS ORDERED: DEXTROSE 50% 50 ML SYRINGE IV PRN (11:00)
[2019-05-15] MEDS ORDERED: IPRATROPIUM 0.5MG/ALBUTEROL 2.5MG INH SOL UD 3ML (DUONEB)(J7620) NEB PRN (11:00)
[2019-05-15] MEDS ORDERED: GLUCAGON FOR INJ 1 MG VIAL (J1610) SC PRN (11:00)
[2019-05-15] MEDS ORDERED: GLUCOSE 4 GM CHEW TABLET PO PRN (11:00)
[2019-05-15] MEDS: NS 1,000 ML IV SCH ×2 (11:45→17:00)
--- NOTE | 2019-05-15 12:15 | REP ---
REASON: Pain and swelling. TECHNIQUE: Multiple ultrasonographic images of the deep venous structures of the thigh were obtained from the common femoral vein to the popliteal vein along with Doppler interrogation and color flow Doppler images. FINDINGS: There is no abnormal echogenic material seen within any of the visualized deep venous structures that would suggest acute thrombosis. Coaptation is unremarkable throughout. Doppler interrogation shows an expected response to respiratory variability and augmentation. The color flow images show what appears to be a normal vascular pattern throughout. IMPRESSION: There is no ultrasonographic evidence of deep venous thrombosis involving any of the visualized deep venous structures of the left thigh, as described above. Electronically Signed by Amrit Mchugh DO 05/15/2019 12:20 P
[2019-05-15] MEDS: HEPARIN SOD (PORCINE) 5000 UNITS/ML VIAL SC SCH ×2 (12:27→20:34)
[2019-05-15 13:01] VITALS: BP 145/78
--- NOTE | 2019-05-15 13:41 | ECGEPIP ---
[facility] - ED Test Date: 2019-05-15 Pat Name: CARTER PADILLA Department: Room: - Gender: Male Channel Rebuilder: : 1945 Requested By: BECKI Oscar Order Number: [id number] Reading MD: Gunner Sam Measurements Intervals [place] Rate: 77 P: 24 RI: 177 QRS: -21 QRSD: 109 T: 17 QT: 358 QTc: 407 Interpretive Statements SINUS RHYTHM WITH OCCASIONAL VENTRICULAR PREMATURE COMPLEXES MINIMAL VOLTAGE CRITERIA FOR LVH, CONSIDER NORMAL VARIANT SIMILAR TO 05/08/19 Electronically Signed on 05-15-2019 13:41:47 EDT by Gunner Sam
[2019-05-15] MEDS: HumaLOG INSULIN (NovoLOG) PER UNIT SC SCH ×2 (14:17→18:17)
--- NOTE | 2019-05-15 16:41 | HPEPDOC ---
General Date of Admission May 15, 2019 at 10:43 Date of Service: May 15, 2019 Attending Physician: PREMA CHAKRABORTY MD Chief Complaint The patient is a 73-year-old male admitted with a reason for visit of Acute Renal Failure. Source: Patient Exam Limitations: No limitations History of Present Illness Mr Gar is a 73 y.o WM with h/o chronic pancreatitis,tobacco abuse still actively smoking,diabetes,chronic back pain,recently diagnosed with lungs cancer with mets to the bones who presented to ED complaining of pain in the left side of head radiating to the neck,both side of the chest and to the back.Patient says that this pain has been sharp and has been constant since yesterday at 3:00pm when it started.He could not eat well since he does not have teeth and he is waiting to get the dental implants.Patient says that on and off he does have short of breath.She is due to see the oncologist and the pul market editor.In ED,CXR showed known left hilar /mediastinal mass;known left pleural effusion and effacement of the left costophrenic angle;periosteal reactive change laterally in the left fifth rib and calcified granuloma inferolaterally in the left lung.Lab showed creatinine 2.60 compared to 1.62 in April 11.Patient was started on iv fluid for NEELIMA,received pain medications and the hospitalist team was called for admission. Home Medications Scheduled Amlodipine Besylate (Amlodipine Besylate) 10 Mg Tablet, 10 MG PO DAILY, (Reported) Ascorbic Acid (Vitamin C) 500 Mg Tab, 500 MG PO DAILY, (Reported) Aspirin (Aspirin EC) 81 Mg Tab, 81 MG PO DAILY, (Reported) Dexamethasone (Decadron) 4 Mg Tablet, 40 MG PO QWEEK Docusate Sodium (Colace) 100 Mg Cap, 1 CAP PO BID Fluticasone Propion/Salmeterol (Advair Hfa 115-21 Mcg Inhaler) 12 Gm Hfa.aer.ad, 2 PUFF INH BID, (Reported) Gabapentin (Gabapentin) 100 Mg Capsule, 100 MG PO DAILY, (Reported) Insulin Glargine,Hum.rec.anlog (Lantus Solostar) 100 Unit/1 Ml Insuln.pen, 15 UNIT SC QHS, (Reported) Insulin Lispro (Humalog) 100 Unit/1 Ml Cartridge, 0 SC ACHS, (Reported) PER SLIDING SCALE Morphine Sulfate (Morphine Sulfate ER) 15 Mg Tablet.er, 15 MG PO BID, (Reported) Multivitamin (Multivitamins) 1 Each Capsule, 1 CAP PO DAILY, (Reported) Pancreatic Enzymes (Creon Dr 12,000 Units Capsule) 1 Ea Capcr, 24,000 UNITS PO WM, (Reported) Potassium Chloride (Potassium Chloride) 20 Meq Tab, 20 MEQ PO DAILY, (Reported) Pravastatin Sodium (Pravastatin Sodium) 20 Mg Tab, 20 MG PO DAILY, (Reported) Umeclidinium [place] (Incruse Ellipta) 62.5 Mcg Blst.w.dev, 1 PUFF INH DAILY, (Reported) Scheduled PRN Albuterol Sulf (Albuterol Sulfate) 2.5 Mg/3 Ml Vial.neb, 2.5 MG INH Q4H PRN for SHORTNESS OF BREATH, (Reported) Albuterol Sulfate (Proair Hfa) 108 Mcg/Act Aer, 2 PUFF INH Q4H PRN for SOB/WHEEZING, (Reported) Hydrocodone/Acetaminophen (Hydrocodone-Acetamin 5-325 mg) 1 Tab Tab, 1 TAB PO BID PRN for PAIN, (Reported) Polyethylene Glycol 3350 (Miralax) 1 Pow Pow, 17 GRAM PO DAILY PRN for CONSTIPATION, (Reported) Allergies Coded Allergies: codeine (Verified Adverse Reaction, Intermediate, sweating, dizziness, 05/15/19) Past Medical History Medical History Chronic pancreatitis due to alcohol abuse Tobacco abuse Lungs cancer with mest to the bones. Diabetes Family History Significant Family History: Noncontributory (not obtained) Social History * Smoker: current smoker (1 1/2 pack per day) Alcohol: other (previous alcohol use) Recent Travel/Sick Contacts: Denies: Recent travel, Recent sick contacts Psychosocial History: No pertinent psych hx A-FIB/CHADSVASC A-FIB History Current/History of A-Fib/PAF?: No (no h/o Afib) Current PO Anticoag Therapy: No (no AC) Review of Systems Constitutional: Reports: Malaise, Fatigue Eyes: Reports: Pain (Left side) ENT: Reports: Head Aches (left side), Ear Pain (left side) Skin: Denies: Rash, Lesions, Breakdown Pulmonary: Reports: Dyspnea, Cough, Other Symptoms (Pain both sides of chest) Cardiovascular: Reports: Chest Pain (both sides of chest); Denies: Orthopnea, Paroxysmal Noc. Dyspnea, Lt Headedness Gastrointestinal: Reports: Constipation; Denies: Nausea, Vomiting, Abdominal Pain, Diarrhea Genitourinary: Denies: Dysuria, Frequency, Incontinence, Retention Hematologic: Denies: Bruising, Bleeding Excessively Musculoskeletal: Reports: Neck Pain (left side), Back Pain, Shoulder Pain Neurological: Denies: Weakness, Numbness, Change in speech, Confusion Psych: Reports: Mood Normal; Denies: Depression, Memory Issues Physical Examination General Exam: Positive: Alert, No Acute Distress Eye Exam: Positive: PERRLA, Conjunctiva & lids normal, EOMI, Other Eye Symptoms (left sided pain); Negative: Sclera icteric ENT Exam: Positive: Atraumatic, Mucous membr. moist/pink, Pharynx Normal Neck Exam: Positive: Supple, Other (mild tenderness left side of neck); Negative: JVD, thyromegaly Chest Exam: Positive: Clear to auscultation, Normal air movement Heart Exam: Positive: Rate Normal, Regular Rhythm, Normal S1, Normal S2; Negative: Murmurs, Rubs Abdomen Exam: Positive: Normal bowel sounds, Soft; Negative: Tenderness, Hepatospenomegaly Extremity Exam: Positive: Normal pulses; Negative: Clubbing, Cyanosis, Edema Skin Exam: Positive: Nl turgor and temperature; Negative: Breakdown, Lesion Neuro Exam: Positive: Normal Gait, Normal Speech, Cranial Nerves 3-12 NL, Reflexes 2+ Psych Exam: Positive: Mental status NL, Mood NL, Oriented x 3 Vital Signs Vital Signs Date Time Temp Pulse Resp B/P (MAP) Pulse Ox O2 Delivery O2 Flow Rate FiO2 05/15/19 13:30 1.0 05/15/19 13:29 16 99 05/15/19 13:01 97.3 67 145/78 (100) 05/15/19 12:45 Nasal Cannula Laboratory Data Labs 24H Laboratory Tests 2 05/15/19 06:24: Immature Granulocyte % (Auto) 0.7, White Blood Count 10.7H, Red Blood Count 4.53, Hemoglobin 13.3L, Hematocrit 40.3L, Mean Corpuscular Volume 89.0, Mean Corpuscular Hemoglobin 29.4, Mean Corpuscular Hemoglobin Concent 33.0, Red Cell Distribution Width 15.7H, Platelet Count 105L, Neutrophils (%) (Auto) 85.6H, Lymphocytes (%) (Auto) 6.0L, Monocytes (%) (Auto) 7.5H, Eosinophils (%) (Auto) 0.0, Basophils (%) (Auto) 0.2, Neutrophils # (Auto) 9.1H, Lymphocytes # (Auto) 0.6L, Monocytes # (Auto) 0.8, Eosinophils # (Auto) 0.0, Basophils # (Auto) 0.0, Nucleated Red Blood Cells % (auto) 0.0, Anion Gap 8, Glomerular Filtration Rate 26.0L, Blood Urea Nitrogen 46#H, Creatinine 2.60H, Sodium Level 136, Potassium Level 3.9, Chloride Level 101, Carbon Dioxide Level 27, Calcium Level 11.2H, Total Creatine Kinase 132, Creatine Kinase MB 3.8H, Creatine Kinase MB Relative Index 2.88, Troponin I 0.03 05/15/19 12:07: Bedside Glucose (Misc Panel) 256H 05/15/19 13:23: Bedside Glucose (Misc Panel) 231H CBC/BMP Laboratory Tests 05/15/19 06:24 Red Blood Count 4.53, Mean Corpuscular Volume 89.0, Mean Corpuscular Hemoglobin 29.4, Mean Corpuscular Hemoglobin Concent 33.0, Red Cell Distribution Width 15.7 H, Neutrophils (%) (Auto) 85.6 H, Lymphocytes (%) (Auto) 6.0 L, Monocytes (%) (Auto) 7.5 H, Eosinophils (%) (Auto) 0.0, Basophils (%) (Auto) 0.2, Neutrophils # (Auto) 9.1 H, Lymphocytes # (Auto) 0.6 L, Monocytes # (Auto) 0.8, Eosinophils # (Auto) 0.0, Basophils # (Auto) 0.0, Calcium Level 11.2 H, Total Creatine Kinase 132 Problems (1) Acute kidney injury Status: Acute Problem Text: Creatinine 2.6 now compared to 1.62 in March 2019.Patient has reported poor po intake.IV fluid.Avoid nephrotoxic agents.If worsening will order US of kidneys and consult nephrology (2) Left facial pain Status: Acute Problem Text: Likely from malignancy.Patient medications. 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 (4) Constipation Status: Acute Problem Text: Dulcolax supp prn daily (5) Lytic lesion of bone on x-ray Onset Date: ~ 04/2019 Status: Acute Problem Text: Due to malignancy.Will follow up with oncology and pulmonology (6) Pancreatitis Status: Chronic Problem Text: On creon WM (7) Tobacco abuse Problem Text: Still smoking 1 1/2 pack per day although the diagnosis of lung ca.Educated about cessation.Nicoderm patch (8) Diabetes Problem Text: SSI.Will add long acting insulin if necessary (9) Hypertension Problem Text: Continue routine meds. Plan / VTE VTE Prophylaxis Ordered?: Yes (scds) Plan Plan Requiring inpatient service for now Disposition To be determined PREMA CHAKRABORTY MD May 15, 2019 16:39
[2019-05-15] MEDS ORDERED: BISACODYL 10 MG SUPP PR PRN (16:45)
[2019-05-15] MEDS ORDERED: MIRALAX *UNIT DOSE* 17GM PACKET PO PRN (16:45)
[2019-05-15] MEDS: GABAPENTIN 100 MG CAP PO SCH (17:22)
[2019-05-15] MEDS: amLODIPine 10 MG TAB PO SCH (17:24)
[2019-05-15] MEDS: CREON-24 CAPSULE PO SCH (18:16)
[2019-05-15] MEDS: NORCO, ANEXSIA 5/325MG TABLET (HYDROcodone/ACETAMINOPHEN) PO PRN (20:35)
[2019-05-15] MEDS ORDERED: HumaLOG INSULIN (NovoLOG) PER UNIT SC SCH (21:00)
[2019-05-15 22:00] VITALS: BP 155/81
[2019-05-16] MEDS: NORCO, ANEXSIA 5/325MG TABLET (HYDROcodone/ACETAMINOPHEN) PO PRN ×2 (00:41→04:59)
[2019-05-16] MEDS: NS 1,000 ML IV SCH (04:58)
[2019-05-16 06:00] VITALS: BP 157/83
[2019-05-16 06:41] LABS: HEMATOCRIT 36.7 % (42.0-52.0); HEMOGLOBIN 12.1 g/dl (13.5-17.5); MEAN CORPUSCULAR HEMOGLOBIN 28.8 pg (27.0-33.0); MEAN CORPUSCULAR VOLUME 87.4 fl (80.0-96.0); WHITE BLOOD COUNT 6.1 10^3/uL (4.0-10.0)
[2019-05-16] MEDS: MORPHINE 4 MG/ML 1ML VIAL/SYRINGE (J2270) IV PRN (06:41)
[2019-05-16 06:42] LABS: PLATELET COUNT, AUTOMATED 79 10^3/uL (150-450)
[2019-05-16 06:56] LABS: HEMOGLOBIN A1c 7.2 %
[2019-05-16 07:08] LABS: CALCIUM LEVEL 9.7 MG/DL (8.8-10.2); CREATININE FOR GFR 2.24 MG/DL (0.70-1.30); GLOMERULAR FILTRATION RATE 30.8 (>42); POTASSIUM SERUM 3.9 MEQ/L (3.5-5.1); THYROID STIMULATING HORMONE 4.04 uIU/ML (0.358-3.740)
[2019-05-16 07:47] VITALS: BP 157/83
[2019-05-16] MEDS: CREON-24 CAPSULE PO SCH (07:47)
[2019-05-16] MEDS: amLODIPine 10 MG TAB PO SCH (07:47)
[2019-05-16] MEDS: GABAPENTIN 100 MG CAP PO SCH (07:47)
[2019-05-16] MEDS: HEPARIN SOD (PORCINE) 5000 UNITS/ML VIAL SC SCH ×2 (07:48→08:24)
[2019-05-16] MEDS: HumaLOG INSULIN (NovoLOG) PER UNIT SC SCH (07:49)
--- NOTE | 2019-05-16 09:56 | REP ---
Renal ultrasound: The kidneys are normal size. The right kidney measures 11.4 by 5.2 x 5.2 cm. The left kidney measures 12.9 x 6.4 x 7.9 cm. Renal cortical echogenicity is increased bilaterally, compatible with medical renal disease. There is no hydronephrosis on the right on the left. There are no renal calculi on the right on the left. There are no solid renal masses. There is a 7.5 cm left renal upper pole Bosniak type 1 cyst. There are no right renal cysts. With color Doppler assessment there are bilateral ureteral jets into the bladder. Impression: Increased renal cortical echogenicity compatible with medical renal disease. 7.5 cm left renal upper pole Bosniak type 1 cyst. Electronically Signed by Brenden Herndon MD 05/16/2019 09:47 A
--- NOTE | 2019-05-16 11:10 | DS.PDOC ---
Discharge Summary General Date of Admission May 15, 2019 at 10:43 Date of Discharge April at 10:43 Primary Care Physician: JERI LEOS MD Attending Physician: PREMA CHAKRABORTY MD Discharge Summary PROCEDURES PERFORMED DURING STAY: [None]. 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 HISTORY OF PRESENT ILLNESS: . Mr Gar is a 73 y.o WM with h/o chronic pancreatitis,tobacco abuse still actively smoking,diabetes,chronic back pain,recently diagnosed with lungs cancer with mets to the bones who presented to ED complaining of pain in the left side of head radiating to the neck,both side of the chest and to the back.Patient says that this pain has been sharp and has been constant since yesterday at 3:00pm when it started.He could not eat well since he does not have teeth and he is waiting to get the dental implants.Patient says that on and off he does have short of breath.She is due to see the oncologist and the general agent.In ED,CXR showed known left hilar /mediastinal mass;known left pleural effusion and effacement of the left costophrenic angle;periosteal reactive change laterally in the left fifth rib and calcified granuloma inferolaterally in the left lung.Lab showed creatinine 2.60 compared to 1.62 in April 11.Patient was started on iv fluid for NEELIMA,received pain medications and the hospitalist team was called for admission. HOSPITAL COURSE: . Mr Gar is a 73 y.o WM with h/o chronic pancreatitis,tobacco abuse still actively smoking,diabetes,chronic back pain,recently diagnosed with lungs cancer with mets to the bones who presented to ED complaining of pain in the left side of head radiating to the neck,both side of the chest and to the back.In ED,CXR showed known left hilar /mediastinal mass;known left pleural effusion and effacement of the left costophrenic angle;periosteal reactive change laterally in the left fifth rib and calcified granuloma inferolaterally in the left lung.Lab showed creatinine 2.60 compared to 1.62 in April 11.Patient was aditeed for NEELIMA and pain mostly due to metastatic cancer.He was started on iv fluid for NEELIMA.He received pain medications.Patient had an appointment today with oncology,Dr Bernal and I called Dr Alejandro who is covering for him and he has indicated that patient can follow up with him at the cancer clinic after being discharged from the hospital.Today patient is feeling much better and his pain is well controlled with pain meds.His creatinine has gone from 2.60 to 2.24 with iv fluid.US of kidneys was c/w medical disease.Patient has good appetite with good PO intake.He is advised to keep up with good hydration and expect creatinine to continue to improve.Since he is medically stable,he will be discharged home and will follow-up with his pcp in 3-5 days and his lab will be repeated. DISCHARGE MEDICATIONS: Please see below. ALLERGIES: Please see below. PHYSICAL EXAMINATION ON DISCHARGE: VITAL SIGNS: Please see below. GENERAL:not in distress HEENT:perrla,at/nc,mouth moist NECK:supple,full range of motion CARDIOVASCULAR EXAMINATION:s1s2 nl,no m/g RESPIRATORY EXAMINATION:ctab ABDOMINAL EXAMINATION:soft,not tender EXTREMITIES:trace edema SKIN:no rash NEUROLOGICAL EXAMINATION:aaox3,grossly intact PSYCHIATRIC EXAMINATION: LABORATORY DATA: Please see below. IMAGING: US of kidneys c/w medical kidney disease CXR:mediastinal mass with lungs nodules Duplex left leg:no dvt PROGNOSIS:poor [facility] prognosis due to cancer ACTIVITY: [As tolerated]. DIET:low salt DISCHARGE PLAN: Follow-up with pcp,oncology and pulmonary DISPOSITION:Home DISCHARGE INSTRUCTIONS: Keep appointments with your doctors DISCHARGE CONDITION: [Stable]. TIME SPENT ON DISCHARGE: Greater than 35 minutes. Vital Signs/I&Os Vital Signs Date Time Temp Pulse Resp B/P (MAP) Pulse Ox O2 Delivery O2 Flow Rate FiO2 05/16/19 07:47 75 157/83 05/16/19 06:51 20 05/16/19 06:00 97.3 96 2.0 05/15/19 12:45 Nasal Cannula I&O- Last 24 Hours up to 6 AM 05/16/19 06:00 Intake Total 3030 ml Output Total 950 ml Balance 2080 ml Laboratory Data Labs 24H Laboratory Tests 2 05/15/19 12:07: Bedside Glucose (Misc Panel) 256H 05/15/19 13:23: Bedside Glucose (Misc Panel) 231H 05/15/19 16:31: Bedside Glucose (Misc Panel) 183H 05/15/19 22:15: Bedside Glucose (Misc Panel) 144H 05/16/19 05:30: Nucleated Red Blood Cells % (auto) 0.0, Immature Platelet Fraction 6.6, Anion Gap 6L, Glomerular Filtration Rate 30.8L, Estimated Mean Plasma Glucose 160H, Hemoglobin A1c 7.2, Blood Urea Nitrogen 46H, Creatinine 2.24H, Sodium Level 141, Potassium Level 3.9, Chloride Level 103, Carbon Dioxide Level 32, Calcium Level 9.7, Thyroid Stimulating Hormone (TSH) 4.040H CBC/BMP Laboratory Tests 05/16/19 05:30 Red Blood Count 4.20 L, Mean Corpuscular Volume 87.4, Mean Corpuscular Hemoglobin 28.8, Mean Corpuscular Hemoglobin Concent 33.0, Red Cell Distribution Width 15.9 H, Calcium Level 9.7 FSBS Laboratory Tests Test 05/15/19 12:07 05/15/19 13:23 05/15/19 16:31 05/15/19 22:15 Range/Units Bedside Glucose (Misc Panel) 256 231 183 144 83-110 MG/DL Discharge Medications Scheduled Amlodipine Besylate (Amlodipine Besylate) 10 Mg Tablet, 10 MG PO DAILY, (Reported) Ascorbic Acid (Vitamin C) 500 Mg Tab, 500 MG PO DAILY, (Reported) Aspirin (Aspirin EC) 81 Mg Tab, 81 MG PO DAILY, (Reported) Dexamethasone (Decadron) 4 Mg Tablet, 40 MG PO QWEEK Docusate Sodium (Colace) 100 Mg Cap, 1 CAP PO BID Fluticasone Propion/Salmeterol (Advair Hfa 115-21 Mcg Inhaler) 12 Gm Hfa.aer.ad, 2 PUFF INH BID, (Reported) Gabapentin (Gabapentin) 100 Mg Capsule, 100 MG PO DAILY, (Reported) Insulin Glargine,Hum.rec.anlog (Lantus Solostar) 100 Unit/1 Ml Insuln.pen, 15 UNIT SC QHS, (Reported) Insulin Lispro (Humalog) 100 Unit/1 Ml Cartridge, 0 SC ACHS, (Reported) PER SLIDING SCALE Morphine Sulfate (Morphine Sulfate ER) 15 Mg Tablet.er, 15 MG PO BID, (Reported) Multivitamin (Multivitamins) 1 Each Capsule, 1 CAP PO DAILY, (Reported) Pancreatic Enzymes (Creon Dr 12,000 Units Capsule) 1 Ea Capcr, 24,000 UNITS PO WM, (Reported) Potassium Chloride (Potassium Chloride) 20 Meq Tab, 20 MEQ PO DAILY, (Reported) Pravastatin Sodium (Pravastatin Sodium) 20 Mg Tab, 20 MG PO DAILY, (Reported) Umeclidinium Porter (Incruse Ellipta) 62.5 Mcg Blst.w.dev, 1 PUFF INH DAILY, (Reported) Scheduled PRN Albuterol Sulf (Albuterol Sulfate) 2.5 Mg/3 Ml Vial.neb, 2.5 MG INH Q4H PRN for SHORTNESS OF BREATH, (Reported) Albuterol Sulfate (Proair Hfa) 108 Mcg/Act Aer, 2 PUFF INH Q4H PRN for SOB/WHEEZING, (Reported) Hydrocodone/Acetaminophen (Hydrocodone-Acetamin 5-325 mg) 1 Tab Tab, 1 TAB PO BID PRN for PAIN, (Reported) Polyethylene Glycol 3350 (Miralax) 1 Pow Pow, 17 GRAM PO DAILY PRN for CONSTIPATION, (Reported) Allergies Coded Allergies: codeine (Verified Adverse Reaction, Intermediate, sweating, dizziness, 05/15/19) PREMA CHAKRABORTY MD May 16, 2019 11:10
== END 2019-05-16 12:08 | disposition home or self-care (01) | DRG 469 ==
LOC: M ED 06:00 → M ED INP 10:43 → M MSPAV 13:42
PROVIDERS: ADMIT Internal Medicine; ATTEND Internal Medicine
DX: N17.9 Acute kidney failure, unspecified (principal); J90 Pleural effusion, not elsewhere classified; C79.51 Secondary malignant neoplasm of bone; K86.0 Alcohol-induced chronic pancreatitis; E11.9 Type 2 diabetes mellitus without complications; C34.02 Malignant neoplasm of left main bronchus; F17.200 Nicotine dependence, unspecified, uncomplicated; I10 Essential (primary) hypertension; M54.9 Dorsalgia, unspecified; Z79.82 Long term (current) use of aspirin; Z79.899 Other long term (current) drug therapy; Z79.4 Long term (current) use of insulin; Z79.891 Long term (current) use of opiate analgesic; Z88.5 Allergy status to narcotic agent; K59.00 Constipation, unspecified

== ENCOUNTER → 2019-05-19 | Outpatient (CLI) | payer BC, OTHER ==
[~2019-05-19] MED LIST changes: +ALBU83IN INH; +AMLO10TA5 PO; +GABA-1171 PO; +HYDR12.55 PO; +INCR1INH INH; +LIDOCAINE 1% MDV 20ML VIAL As Ordered ONE; -LISI20TA18 PO; +LISI20TA19 PO; +ONDA8TAB10 PO; +PROC10TA4 PO
[2019-05-19 09:32] VITALS: BP 144/64
--- NOTE | 2019-05-20 23:34 | REP ---
ULTRASOUND-GUIDED LEFT LOWER QUADRANT ABDOMINAL WALL MASS BIOPSY The procedure was performed under the direct supervision of Dr. Marin. The patient has a history of A soft tissue mass in the left lower quadrant abdominal wall seen on a previous CT scan dated 05/08/2019. The risks and benefits of the procedure were explained to the patient and informed consent was obtained. The abdominal wall mass was localized using ultrasound guidance. The skin was prepped and draped in a sterile fashion. 1% lidocaine was used as a local anesthetic. Using ultrasound guidance a 19/20 gauge coaxial needle biopsy system was inserted and advanced into the mass. Eight core biopsy samples were obtained and sent to lab. The patient tolerated the procedure well and there were no immediate complications. After the appropriate amount of monitored convalescence the patient was discharged from the department. Reviewed by PANCHITO Eaton 05/19/2019 03:48 P Electronically Signed by Brenden Marin MD 05/20/2019 11:25 P
== END ==
LOC: M IRPRO 08:14 → M RADPRO 08:14
PROVIDERS: ATTEND Family Medicine
DX: C79.89 Secondary malignant neoplasm of other specified sites (principal); C34.90 Malignant neoplasm of unspecified part of unspecified bronchus or lung

== ENCOUNTER → 2019-05-23 09:30 | Outpatient (RCR) | payer BC, OTHER ==
[2019-05-13 09:30] VITALS: BP 163/81
[2019-05-13 10:49] LABS: HEMATOCRIT 47.8 % (42.0-52.0); HEMOGLOBIN 15.1 g/dl (13.5-17.5); LYMPH % 14.4 % (24.0-44.0); MEAN CORPUSCULAR HEMOGLOBIN 27.7 pg (27.0-33.0); MEAN CORPUSCULAR HGB CONC 31.6 g/dl (32.0-36.5); MEAN CORPUSCULAR VOLUME 87.6 fl (80.0-96.0); NEUTROPHILS # 4.9 10^3/uL (1.8-7.7); NEUTROPHILS % 78.3 % (36.0-66.0); RED BLOOD COUNT 5.46 10^6/uL (4.30-6.10); WHITE BLOOD COUNT 6.2 10^3/uL (4.0-10.0)
[2019-05-13 11:05] LABS: ALBUMIN 3.2 GM/DL (3.5-5.2); CREATININE FOR GFR 1.79 MG/DL (0.90-1.30); GLOMERULAR FILTRATION RATE 39.9 (>42); TOTAL PROTEIN 7.5 GM/DL (6.4-8.3)
[2019-05-13 11:16] LABS: INR 1.39; PROTHROMBIN TIME 16.8 SECONDS (11.8-14.0)
[2019-05-13 11:17] LABS: PARTIAL THROMBOPLASTIN TIME 32.9 SECONDS (25.0-38.4)
[2019-05-13 11:21] LABS: PROSTATIC SPECIFIC AG MONITOR 2.3 NG/ML (< 4.00)
[2019-05-13 12:39] VITALS: BP 168/83
--- NOTE | 2019-05-15 14:51 | RO ---
MEDICAL ONCOLOGY/HEMATOLOGY DIAGNOSTIC BONE MARROW ASPIRATE AND BIOPSY PROCEDURE NOTE: DATE OF SERVICE: 05/13/2019 Written informed consent for bone marrow aspirate and biopsy were obtained following explanation of risks, benefits, side effects including, but not limited to pain, bleeding, infection at the site or major organ puncture and catastrophic bleeding, risk of spinal access with catastrophic risk for infection and bleeding. Written informed consent obtained. The patient was prepped and draped in usual sterile fashion. Time-out taken. Patient self identified and the procedure to be done. Bone marrow aspirate and biopsy were performed at the left posterior iliac crest. The patient tolerated procedure well. Specimen sent for morphology, molecular studies, flow cytometry, FISH, cytogenetics.
--- NOTE | 2019-05-16 13:45 | MEDONC ---
MEDICAL ONCOLOGY INITIAL VISIT DATE OF SERVICE: 05/13/2019 DIAGNOSIS: 73-year-old man with hypercalcemia, widespread lytic bone lesions, pleural-based and mediastinal lung masses, new acute renal failure suspicious for metastatic carcinoma versus multiple myeloma versus multifactorial malignant causes. 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 Last week, he saw Dr. Garg, underwent labs and chest x-ray and was called by Dr. Garg to present to the emergency room because of lytic lesions, chest findings and hypercalcemia, and new acute renal failure. In the emergency room, calcium was 12, CT of chest/abdomen/pelvis revealed left lung pleural-based masses at the left base and left upper lobe, a large necrotic mediastinal mass with extensive paratracheal apparent lymphadenopathy or soft tissue deposits, and creatinine 1.65 with GFR 44, a drop from normal in February 2019. Alk phos was 697, albumin 2.9. He was hydrated and discharged from the emergency room. Dr. Garg contacted oncology and requested referral. In the meantime, the patient is scheduled for potential biopsies of one of the pleural-based masses, a bone site and his sternum. Notably, 05/08/2019 CTs of chest, cervical, thoracic and lumbar spine show a 22 mm pleural-based left upper lobe nodule, left pretracheal to subcarinal and left hilar soft tissue densities up to 8 cm, 1.6 cm right subcarinal enlarged node, posterior 6th rib fracture deformity, multiple lytic lucencies throughout the thoracic spine marked in T2, T3 with 50% loss of height at T12 without retropulsion, a right sternal soft tissue nodular density up to 3.3 cm, cervical spine with DJD, thoracic spine with question of left lung or paraspinal mass (3.8 cm pleural based lesion). Earlier in the summer, the patient has had a lumbar spine plain x-ray showing osteopenia and multilevel DJD. Mr. Gar notes the emergence of subcutaneous nodules involving his left lower abdomen area, sternum, arm over the last several months, even possibly the last year or two. He is a lifelong smoker. Denies hemoptysis. Acknowledges increasing fatigue and decreasing performance status. He feels wobbly on his feet over the last few days. Denies nausea or vomiting. He has had a few falls at home. Denies head trauma. PAST MEDICAL HISTORY: Hypertension. Type 2 diabetes. Acute/chronic pancreatitis (lifetime nondrinker). Chronic smoker age 18 to present 1-2 packs per day. 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 Histoplasmosis diagnosed many years ago. PAST SURGICAL HISTORY: Herniorrhaphy. Prostate biopsy. Upper and lower endoscopy. ALLERGIES: CODEINE. MEDICATIONS: - albuterol ProAir - amlodipine 5 mg daily - vitamin C 500 mg daily - aspirin 81 mg daily - docusate 100 mg b.i.d. - hydrocodone/acetaminophen q. 12 hours p.r.n. pain begun in the last week - insulin glargine 15 units subcu p.m. - insulin lispro 100 units WM - morphine sulfate ER 15 mg q.6 hours - Multivite daily - pancreatic enzymes 1-2 capsules with meals - polyethylene glycol p.r.n. 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 Lives in [place]. Never drinker. Greater than 50 pack-year smoking history. FAMILY HISTORY: Mother had cancer at age 96. No other malignancy in the family. REVIEW OF SYSTEMS: 12-system written review completed by the patient is positive for recent weight loss of 20-30 pounds, appetite loss, increased fatigue, change in eyesight, hearing loss, shortness of breath, cough, heartburn, urinary frequency, muscle or body aches, chest lump, dizziness, trouble sleeping, easy bruising. Remainder of 12 system review negative. PHYSICAL EXAMINATION: The patient is a frail appearing, somewhat unkempt older gentleman, very polite and pleasant, hard of hearing. Respiratory: Distant but clear breath sounds throughout the lung newberry. Cardiac: S1, S2, regular rate and rhythm. No murmur. No gallop. Abdomen: Soft, nontender, nondistended. No palpable hepatosplenomegaly or mass. Extremities: No edema. Lymph nodes: No palpable axillary, cervical, supraclavicular, pre or postauricular, or inguinal adenopathy bilaterally. Musculoskeletal: No vertebral tenderness to percussion. Skin: Palpable 3 cm subcutaneous firm, semi fixed nodule in the left sternum. Another small 1-2 cm mobile subcutaneous nodule in the left lower abdomen. Another in the left upper chest wall. LABORATORY DATA: WBC 6.2, hemoglobin 15, hematocrit 48, platelets 126. Sodium, potassium, and chloride normal. CO2 32, BUN 22, creatinine 1.8, GFR 40, glucose 64, calcium 12, albumin 3.2, AST 40, ALT 25, alk phos 824. IgA 2600, IgG 302, IgM 21. Free light chains pending. IMPRESSION: 73-year-old man with multiple lytic lesions, subcutaneous nodules, hypercalcemia, lung mass, mediastinal lymphadenopathy, history of histoplasmosis, new renal insufficiency, lifelong smoker all concerning either for metastatic lung cancer with paraneoplastic hypercalcemia or IgA multiple myeloma with renal insufficiency, hypercalcemia and lytic lesions. 1. Diagnostic bone marrow biopsy and aspirate to be done today. 2. A.s.a.p. ultrasound-guided biopsy of the chest wall nodule. This could prove helpful and a simple way to get the diagnosis. 3. Follow through with other diagnostic procedures until we have certainty the patient does not have two separate malignant processes. 4. Denosumab 120 mg today. 5. IV fluid 1 liter normal saline bolus today. 6. Begin dexamethasone 40 mg once weekly as empiric myeloma treatment. This will help symptoms, disease, hypercalcemia, and not harm the patient should he have a metastatic solid tumor. 7. Return to clinic 1 week for followup results, particularly of free light chains and biopsies. Would hold empiric myeloma specific drugs until we have a tissue or hematologic confirmation of existing myeloma and we have ruled out a coexisting solid tumor. TIME STATEMENT: 1 hour [id number] with the patient, more than 50% involving counseling, reviewing diagnostic possibilities, outlining potential procedures, answering questions. Electronically Signed by Sharmila De La Torre MD 05/16/2019 02:55 P DD: Sharmila De La Torre MD 05/13/2019 05:42 P DT: [email or web address] 05/16/2019 12:54 P CC: Brenden Garg MD
[2019-05-20 10:14] VITALS: BP 160/73
[2019-05-20 11:20] LABS: BASO % 0.3 % (0.0-1.0); EOS # 0.1 10^3/uL (0.0-0.50); EOS % 1.2 % (0.0-3.0); HEMATOCRIT 38.4 % (42.0-52.0); HEMOGLOBIN 12.6 g/dl (13.5-17.5); LYMPH # 0.8 10^3/uL (1.5-4.5); LYMPH % 7.7 % (24.0-44.0); MEAN CORPUSCULAR HEMOGLOBIN 28.6 pg (27.0-33.0); MEAN CORPUSCULAR HGB CONC 32.8 g/dl (32.0-36.5); MEAN CORPUSCULAR VOLUME 87.1 fl (80.0-96.0); MONO # 0.8 10^3/uL (0.0-0.8); MONO % 7.3 % (0.0-5.0); NEUTROPHILS # 8.6 10^3/uL (1.8-7.7); NEUTROPHILS % 79.8 % (36.0-66.0); PLATELET COUNT, AUTOMATED 127 10^3/uL (150-450); RED BLOOD COUNT 4.41 10^6/uL (4.30-6.10); WHITE BLOOD COUNT 10.7 10^3/uL (4.0-10.0)
[2019-05-20 11:30] LABS: ALBUMIN 2.6 GM/DL (3.2-5.2); BILIRUBIN,TOTAL 1.1 MG/DL (0.2-1.0); CALCIUM LEVEL 8.5 MG/DL (8.8-10.2); CREATININE FOR GFR 1.87 MG/DL (0.70-1.30); POTASSIUM SERUM 4.4 MEQ/L (3.5-5.1); TOTAL PROTEIN 7.4 GM/DL (6.4-8.2)
[2019-05-20 11:35] LABS: MAGNESIUM LEVEL 2.3 MG/DL (1.8-2.4)
[2019-05-20 13:42] VITALS: BP 151/75
--- NOTE | 2019-05-22 08:18 | MEDONC ---
MEDICAL ONCOLOGY FOLLOWUP DATE OF SERVICE: 05/20/2019 DIAGNOSIS: 1. 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 2. Hypercalcemia of malignancy versus myeloma related IgA lambda MGUS. 3. New right lower extremity pain radiating from the lumbar area. INTERIM HISTORY: Mr. Gar has received a dose of denosumab and his calcium is now under control. His renal function is improving following some hydration and better food intake at home. Hemoglobin/hematocrit remained intact, platelets mildly elevated, alk phos somewhat improved. Just before today's visit Dr. Paiz of pathology called to say the bone marrow biopsy is consistent with a carcinoma not a lymphoma or myeloma and stains on yesterday's abdominal subcutaneous mass biopsy are pending. She noted the appearance on pathology is of small round blue cells most consistent with neuroendocrine type tumor and in the setting small cell lung carcinoma is the most likely in this patient with a long heavy current smoking history. I shared all of these pieces of information with Marlin and his . He is focused on a radicular pattern of right leg pain, though on exam today no focal weakness or numbness in that right leg. I explained the need for final pathology confirmation but provisionally we should plan to start treatment for him with small cell lung cancer targeting treatment. I explained the nature of extensive stage small cell lung cancer, it is very poor, 3 and 5-year prognosis, its incurability, but its eminent treatability with combination chemotherapy and now immunotherapy. I have reviewed the schedule, drug, risks, benefits including but not limited to nausea, vomiting, alopecia, myelosuppression, fatigue, autoimmune side effects such as dermatitis, colitis, pneumonitis, thyroiditis, nephritis, transaminitis, . I obtained written informed consent after Mr. Gar decided he would like to go ahead with treatment. PHYSICAL EXAMINATION: VITAL SIGNS: Weight 68 kg, temperature 96.8, blood pressure 160/73, heart rate 84, respiratory rate 18, O2 sat 100%. Neurologic exam: Cranial nerves II-XII grossly intact. Muscle strength 5/5 flexor and extensor throughout. Sensation intact throughout. DTRs zero both knees. Gait narrow based, pivots without difficulty. LABORATORY DATA: WBC 10.7, hemoglobin 12, hematocrit 38, platelets 495. Other labs reviewed as above. Creatinine today 1.87, GFR 38, albumin 2.6, calcium 8.5. Renal ultrasound negative for hydronephrosis or obstructing lesion. Head CT without contrast 05/14/2019 negative for intracranial metastatic lesions. 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 Based on bone marrow biopsy and subcutaneous tumor nodule presumptive extensive stage small cell. New right leg pain with radicular focus of symptoms. The patient has morphine and hydrocodone at home, not taking more than trivial doses of either. I encouraged him to take full dose of the hydrocodone to start and if needed use his morphine. I cautioned about constipation and his jotted down Senokot. He is also taking other laxatives at home. Written informed consent for chemotherapy obtained today. IV hydration today 1 liter fluid. PLAN: 1. 1 liter normal saline today. 2. TINO lumbar and thoracic MRI if possible with Gadolinium rule out cord threatening metastatic lesions. 3. Return to clinic this week to begin carboplatin/etoposide/atezolizumab. Risks, benefits, side effects reviewed and written informed consent obtained today. 4. I will see Frakes day 15 cycle one, will support with pegfilgrastim. Hypercalcemia currently under control. 5. I will followup with pathology later today. TIME STATEMENT: 50 minutes [id number] with the patient more than 50% involved in discussing suspected new diagnosis, workup of right leg pain, pain management recommendations, reviewing risks, benefits and side effects of treatment, obtaining written informed consent, answering the patient and his 's questions. ADDENDUM: Referral to palliative care. Electronically Signed by Sharmila De La Torre MD 05/22/2019 05:06 P DD: Sharmila De La Torre MD 05/20/2019 12:57 P DT: adrian 05/22/2019 07:37 A CC: JYOTI Brito MD
[2019-05-22 09:23] LABS: BASO % 0.3 % (0.0-1.0); HEMATOCRIT 37.5 % (42.0-52.0); HEMOGLOBIN 12.3 g/dl (13.5-17.5); LYMPH # 0.4 10^3/uL (1.5-4.5); LYMPH % 3.9 % (24.0-44.0); MEAN CORPUSCULAR HEMOGLOBIN 28.5 pg (27.0-33.0); MEAN CORPUSCULAR HGB CONC 32.8 g/dl (32.0-36.5); MONO # 0.4 10^3/uL (0.0-0.8); MONO % 3.9 % (0.0-5.0); NEUTROPHILS # 9.8 10^3/uL (1.8-7.7); NEUTROPHILS % 87.9 % (36.0-66.0); PLATELET COUNT, AUTOMATED 112 10^3/uL (150-450); RED BLOOD COUNT 4.31 10^6/uL (4.30-6.10); WHITE BLOOD COUNT 11.2 10^3/uL (4.0-10.0)
[2019-05-22 09:54] LABS: ALBUMIN 2.4 GM/DL (3.2-5.2); BILIRUBIN,TOTAL 1.3 MG/DL (0.2-1.0); CALCIUM LEVEL 7.6 MG/DL (8.8-10.2); CREATININE FOR GFR 1.95 MG/DL (0.70-1.30); GLOMERULAR FILTRATION RATE 36.2 (>42); POTASSIUM SERUM 4.7 MEQ/L (3.5-5.1); TOTAL PROTEIN 6.7 GM/DL (6.4-8.2)
[2019-05-22 10:54] VITALS: BP 141/80
--- NOTE | 2019-05-22 13:50 | ONC.PHACK ---
CHEMO ADMIN CHECKLIST Order Contains Pt ID: Name, Order on Chemo Order Form?: Yes Order Form Includes ALL: Correct Tx Day, Correct Date, Correct Cycle Number Pt ID on Order form Matches: Pt ID on PHA Label Med on Chemo OrderForm Matches: PHA Label, Med Used for Preparation [facility] May 22, 2019 13:50
[~2019-05-23] VITALS: Ht 177.8 cm; Wt 73.5 kg
[~2019-05-23 09:30] MED LIST changes: +ATEZOLIZUMAB IV ONE; +CARBOPLATIN IV ONE; +DENOSUMAB (XGEVA) 120MG/1.7ML VIAL (J0897 PER 1MG) (FOR ONCOLOGY) SC ONE; +ETOPOSIDE IV ONE; +FOSAPREPITANT PERIPHERAL LINE 30 MIN INFUSION (PREMIX) IV ONE; +FOSAPREPITANT PERIPHERAL LINE 30 MIN INFUSION IV ONE; -LIDOCAINE 1% MDV 20ML VIAL As Ordered ONE; +LIDOCAINE 2% MDV 20 ML VIAL SC ONE; +MORPHINE 10 MG/ML 1ML VIAL (J2270) IV ONE; +NS 1,000 ML IV ONE; +NS IV ONE; +OLANZapine 10 MG TAB PO ONE; +PALONOSETRON 250 MCG IV IV ONE; +PEGFILGRASTIM 6MG/0.6ML ONPRO KIT (J2505 PER 6MG) (FOR ONCOLOGY) SC ONE; +dexameTHASONE 10 MG IV IV ONE
--- NOTE | 2019-05-23 09:40 | ONC.PHACK ---
CHEMO ADMIN CHECKLIST Order Contains Pt ID: Name, Order on Chemo Order Form?: Yes Order Form Includes ALL: Correct Tx Day, Correct Date, Correct Cycle Number Pt ID on Order form Matches: Pt ID on PHA Label Med on Chemo OrderForm Matches: PHA Label, Med Used for Preparation [facility] May 23, 2019 09:40
== END | disposition home or self-care (01) ==
LOC: M ONCM 05-13 09:18
PROVIDERS: ATTEND Internal Medicine Medical Oncology
DX: C80.1 Malignant (primary) neoplasm, unspecified (principal); C79.9 Secondary malignant neoplasm of unspecified site; R91.8 Other nonspecific abnormal finding of lung field; M79.661 Pain in right lower leg; E83.52 Hypercalcemia; R19.09 Other intra-abdominal and pelvic swelling, mass and lump; I10 Essential (primary) hypertension; E11.9 Type 2 diabetes mellitus without complications; N17.9 Acute kidney failure, unspecified; K86.9 Disease of pancreas, unspecified; F17.210 Nicotine dependence, cigarettes, uncomplicated; Z88.5 Allergy status to narcotic agent; Z79.899 Other long term (current) drug therapy; Z79.82 Long term (current) use of aspirin; Z79.4 Long term (current) use of insulin
CPT/HCPCS: 36415; 38222; 80053; 82378; 83615; 83735; 84153; 85027; 85610; 85730; 88300; 88305; 88311; 88313; 88341; 88342; 96367; 96372; 96374; 96375; 96377; 96413; 96417; G0463; J0897; J1100; J1453; J2270; J2469; J2505; J9022; J9045; J9181

== ENCOUNTER 2019-05-29 17:25 | Inpatient (IN) | payer BC, OTHER ==
[~2019-05-29] VITALS: Ht 177.8 cm; Wt 70.4 kg
[~2019-05-29 17:25] MED LIST changes: -ATEZOLIZUMAB IV ONE; -CARBOPLATIN IV ONE; -DENOSUMAB (XGEVA) 120MG/1.7ML VIAL (J0897 PER 1MG) (FOR ONCOLOGY) SC ONE; -ETOPOSIDE IV ONE; -FOSAPREPITANT PERIPHERAL LINE 30 MIN INFUSION (PREMIX) IV ONE; -FOSAPREPITANT PERIPHERAL LINE 30 MIN INFUSION IV ONE; -LIDOCAINE 2% MDV 20 ML VIAL SC ONE; -MORPHINE 10 MG/ML 1ML VIAL (J2270) IV ONE; -NS 1,000 ML IV ONE; -NS IV ONE; -OLANZapine 10 MG TAB PO ONE; -ONDA8TAB10 PO; +ONDA8TAB7 PO; -PALONOSETRON 250 MCG IV IV ONE; -PEGFILGRASTIM 6MG/0.6ML ONPRO KIT (J2505 PER 6MG) (FOR ONCOLOGY) SC ONE; -dexameTHASONE 10 MG IV IV ONE
[2019-05-29] MEDS ORDERED: DEXTROSE 50% 50 ML SYRINGE IV STA (17:48)
[2019-05-29] MEDS ORDERED: ACETAMINOPHEN TAB 650MG DOSE (2X325MG) PO PRN (19:15)
[2019-05-29] MEDS ORDERED: HYDROMORPHONE HCL 0.5 MG/ 0.5 ML SYRINGE (J1170 PER 1) IV PRN (19:15)
[2019-05-29] MEDS ORDERED: MORPHINE 4 MG/ML 1ML VIAL/SYRINGE (J2270) IV PRN (19:15)
[2019-05-29] MEDS ORDERED: FLEET ENEMA PR PRN (19:15)
[2019-05-29] MEDS ORDERED: SCOPOLAMINE 1MG TRANSDERMAL PATCH TOP PRN (19:15)
[2019-05-29] MEDS ORDERED: HYOSCYAMINE SULFATE 0.125 MG SUBL TABLET PO PRN (19:15)
[2019-05-29] MEDS ORDERED: ONDANSETRON 4MG/2ML VIAL (J2405) IV PRN (19:15)
--- NOTE | 2019-05-29 19:19 | HPEPDOC ---
[facility] Medical History & Physical Date of Admission May 29, 2019 Date of Service: May 29, 2019 Primary Care Physician: JERI LEOS MD Attending Physician: DEYSI CAT MD History and Physical TIME OF SERVICE: 7:30 PM CHIEF COMPLAINT: Left buttock pain HISTORY OF PRESENT ILLNESS: This is a 79-year-old male with a history of metastatic cancer who who presented with complaints of "terrible" 10 out of 10 in severity left buttock pain that's made worse with movement. He is unable to walk because of the pain. The pain shoots down to his thigh is constant, aching, deep and sharp in nature. He received Dilaudid in the ED which helped a bit; right now the pain is not present unless he moves. REVIEW OF SYSTEMS: 12 point review of systems negative except as listed in HPI PAST MEDICAL/ SURGICAL HISTORY: 1. Metastatic Small Cell Lung CA 2. Chronic HTN 3. DM 4. Chronic Pancreatitis 2/2 alcohol abuse . Previously had stents placed in the pancreatic ducts that were subsequently removed 5. Portal hypertension. 6. Dyslipidemia 7. Status post cholecystectomy SOCIAL HISTORY: Smoker Quit drinking FAMILY HISTORY: Coronary artery disease. Stomach cancer ALLERGIES: Please see below. HOME MEDICATIONS: Please see below. PHYSICAL EXAMINATION: VITAL SIGNS: Please see below. GENERAL APPEARANCE: Well-nourished, well-developed, not in apparent distress HEENT: No cephalic, atraumatic, has marked scleral icterus CARDIOVASCULAR: Sinus bradycardia, no murmurs, rubs or gallops appreciated LUNGS: Clear to auscultation bilaterally on room air ABDOMEN: Soft and nontender on palpation INTEGUMENT: Has marked jaundice NEUROLOGICAL: Cranial nerves II-12 grossly intact. 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 Isaac is a 73-year-old male with a past medical history of metastatic lung cancer, diabetes, chronic pancreatitis, and dyslipidemia will be admitted for management of cancer-related pain. PLAN: 1. 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 Dispo pending clinical course Laboratory Data Labs 24H Laboratory Tests 2 05/29/19 18:26: Bedside Glucose (Misc Panel) 113H Home Medications Scheduled Amlodipine Besylate (Amlodipine Besylate) 10 Mg Tablet, 10 MG PO DAILY Ascorbic Acid (Vitamin C) 500 Mg Tab, 500 MG PO DAILY Aspirin (Aspirin EC) 81 Mg Tab, 81 MG PO DAILY Dexamethasone (Decadron) 4 Mg Tablet, 40 MG PO QWEEK Docusate Sodium (Colace) 100 Mg Cap, 1 CAP PO BID Fluticasone Propion/Salmeterol (Advair Hfa 115-21 Mcg Inhaler) 12 Gm Hfa.aer.ad, 2 PUFF INH BID Gabapentin (Gabapentin) 100 Mg Capsule, 100 MG PO DAILY Hydrochlorothiazide (Hydrochlorothiazide) 12.5 Mg Tablet, 12.5 MG PO DAILY Take one tab by mouth daily for 5 days Insulin Glargine,Hum.rec.anlog (Lantus Solostar) 100 Unit/1 Ml Insuln.pen, 15 UNIT SC QHS Insulin Lispro (Humalog) 100 Unit/1 Ml Cartridge, 0 SC ACHS PER SLIDING SCALE Morphine Sulfate (Morphine Sulfate ER) 15 Mg Tablet.er, 15 MG PO BID Multivitamin (Multivitamins) 1 Each Capsule, 1 CAP PO DAILY Pancreatic Enzymes (Creon Dr 12,000 Units Capsule) 1 Ea Capcr, 24,000 UNITS PO WM Potassium Chloride (Potassium Chloride) 20 Meq Tab, 20 MEQ PO DAILY Pravastatin Sodium (Pravastatin Sodium) 20 Mg Tab, 20 MG PO DAILY Umeclidinium [place] (Incruse Ellipta) 62.5 Mcg Blst.w.dev, 1 PUFF INH DAILY Scheduled PRN Albuterol Sulf (Albuterol Sulfate) 2.5 Mg/3 Ml Vial.neb, 2.5 MG INH Q4H PRN for SHORTNESS OF BREATH Albuterol Sulfate (Proair Hfa) 108 Mcg/Act Aer, 2 PUFF INH Q4H PRN for SOB/WHEEZING Hydrocodone/Acetaminophen (Hydrocodone-Acetamin 5-325 mg) 1 Tab Tab, 1 TAB PO BID PRN for PAIN Ondansetron HCl (Ondansetron HCl) 8 Mg Tablet, 8 MG PO Q6H PRN for NAUSEA OR VOMITING Polyethylene Glycol 3350 (Miralax) 1 Pow Pow, 17 GRAM PO DAILY PRN for CONSTIPATION Prochlorperazine Maleate (Prochlorperazine Maleate) 10 Mg Tablet, 10 MG PO Q8HP PRN for NAUSEA OR VOMITING Allergies Coded Allergies: codeine (Verified Adverse Reaction, Intermediate, sweating, dizziness, 05/15/19) A-FIB/CHADSVASC A-FIB History Current/History of A-Fib/PAF?: No Current PO Anticoag Therapy: No DEYSI CAT MD May 29, 2019 19:19
[2019-05-29 21:00] VITALS: BP 118/59
[2019-05-29] MEDS ORDERED: LEVEMIR (INSULIN DETEMIR) 1 UNITS/0.01ML SC SCH (21:00)
[2019-05-29] MEDS: HYDROMORPHONE HCL 0.5 MG/ 0.5 ML SYRINGE (J1170 PER 1) IV PRN (22:19)
[2019-05-30] MEDS: HYDROMORPHONE HCL 0.5 MG/ 0.5 ML SYRINGE (J1170 PER 1) IV PRN ×7 (00:53→23:03)
[2019-05-30] MEDS ORDERED: ALBUTEROL SULFATE 2.5 MG/0.5 ML INH NEB SOLN INH PRN (01:45)
[2019-05-30] MEDS ORDERED: ALBUTEROL 90 MCG/ACT 8GM HFA INHALER INH PRN (01:45)
[2019-05-30] MEDS ORDERED: PROCHLORPERAZINE 5 MG TAB (S0183) PO PRN (01:45)
[2019-05-30] MEDS ORDERED: MIRALAX *UNIT DOSE* 17GM PACKET PO PRN (01:45)
[2019-05-30] MEDS: LORazepam 2 MG/ML VIAL (J2060) IV PRN ×2 (04:56→10:11)
[2019-05-30] MEDS ORDERED: ADVAIR HFA 115/21MCG INHALER INH SCH (08:00)
[2019-05-30] MEDS ORDERED: CREON-12 CAPSULE PO SCH (08:00)
[2019-05-30] MEDS ORDERED: GABAPENTIN 100 MG CAP PO SCH (09:00)
[2019-05-30] MEDS ORDERED: DOCUSATE SODIUM 100 MG CAP PO SCH (09:00)
[2019-05-30] MEDS ORDERED: POTASSIUM CHLORIDE 10 MEQ SR TABLET PO SCH (09:00)
[2019-05-30] MEDS ORDERED: DEXTROSE 50% 50 ML SYRINGE IV PRN (10:45)
[2019-05-30] MEDS ORDERED: GLUCOSE 4 GM CHEW TABLET PO PRN (10:45)
[2019-05-30] MEDS ORDERED: GLUCAGON FOR INJ 1 MG VIAL (J1610) SC PRN (10:45)
[2019-05-30] MEDS: HumaLOG INSULIN (NovoLOG) PER UNIT SC SCH ×3 (12:00→23:37)
--- NOTE | 2019-05-30 15:07 | IPNPDOC ---
Subjective Date Seen The patient was seen on 05/30/19. Subjective Chief Complaint/HPI Patient is comfortable in no distress. Offers no new complaints at the present time General: Denies: ROS Unobtainable, Chills, Night Sweats, Fatigue, Malaise, Normal Appetite, Other Symptoms Constitutional: Denies: Chills, Fever, Malaise, Night Sweats, Weakness, Fatigue, Weight Loss, Lethargy, Other Eyes: Denies: Pain, Vision change, Conjunctivae inflammation, Eyelid inflammation, Redness, Other ENT: Denies: Head Aches, Ear Pain, Dysphagia, Sinus Congestion, Post Nasal Drip, Sore Throat, Epistaxis, Other Symptoms Skin: Denies: Rash, Lesions, Jaundice, Bruising, Itching, Dry, Breakdown, Nail Changes, Other Pulmonary: Denies: Dyspnea, Cough, Pleuritic Chest Pain, Other Symptoms Cardiovascular: Denies: Chest Pain, Palpitations, Orthopnea, Paroxysmal Noc. Dyspnea, Edema, Lt Headedness, Other Symptoms Gastrointestinal: Denies: Nausea, Vomiting, Abdominal Pain, Diarrhea, Constipation, Melena, Hematochezia, Other Symptoms Genitourinary: Denies: Dysuria, Frequency, Incontinence, Hematuria, Retention, Other Symptoms Musculoskeletal: Denies: Neck Pain, Back Pain, Shoulder Pain, Arm Pain, Hand Pain, Leg Pain, Foot Pain, Joint Pain, Muscle Pain, Spasms, Other Symptoms Neurological: Denies: Weakness, Numbness, Incoordination, Change in speech, Confusion, Seizures, Other Symptoms Objective Physical Examination General Exam: Positive: Alert, Cooperative Eye Exam: Positive: PERRLA, Conjunctiva & lids normal ENT Exam: Positive: Atraumatic, Mucous membr. moist/pink Neck Exam: Positive: Supple Chest Exam: Positive: Clear to auscultation, Normal air movement Heart Exam: Positive: Rate Normal, Normal S1, Normal S2 Abdomen Exam: Positive: Normal bowel sounds, Soft Extremity Exam: Positive: Normal pulses Skin Exam: Positive: Nl turgor and temperature Assessment /Plan Problems (1) Small cell lung cancer in adult Status: Chronic Problem Text: Mr. Isaac is a 73-year-old male with a past medical history of metastatic lung cancer, diabetes, chronic pancreatitis, and dyslipidemia , was admitted with the diagnosis of acute pain related to his cancer Patient's signed comfort measure care status only But she is requesting fingerstick blood sugar with coverage, but no other lab work Will provide comfort care only and DC all the home meds Continue fingerstick blood sugar with coverage as per 's wishes Hospice consult has been called and is awaiting (2) Comfort measures only status Status: Acute Plan/VTE VTE Prophylaxis Ordered?: No VTE Exclusion Mechanical Proph: Patient/Family Refusal VTE Exclusion Pharmacological: Patient/Family Refusal VS, I&O, 24H, Fishbone Vital Signs/I&O Vital Signs Date Time Temp Pulse Resp B/P (MAP) Pulse Ox O2 Delivery O2 Flow Rate FiO2 05/29/19 21:01 98.3 85 96 05/29/19 21:00 118/59 (78) I&O- Last 24 Hours up to 6 AM 05/30/19 05:59 Intake Total 300 ml Output Total 355 ml Balance -55 ml Laboratory Data 24H LABS Laboratory Tests 2 05/29/19 17:44: Bedside Glucose (Misc Panel) 29*L 05/29/19 18:26: Bedside Glucose (Misc Panel) 113H 05/30/19 13:25: Bedside Glucose (Misc Panel) 19*L 05/30/19 14:00: Bedside Glucose (Misc Panel) 75L DAYLIN JUSTICE MD May 30, 2019 15:07
[2019-05-31] MEDS: HYDROMORPHONE HCL 0.5 MG/ 0.5 ML SYRINGE (J1170 PER 1) IV PRN ×7 (01:13→23:44)
[2019-05-31] MEDS: LORazepam 2 MG/ML VIAL (J2060) IV PRN ×2 (05:56→11:07)
[2019-05-31] MEDS: HumaLOG INSULIN (NovoLOG) PER UNIT SC SCH ×3 (06:00→18:00)
--- NOTE | 2019-05-31 10:57 | IPNPDOC ---
Subjective Date Seen The patient was seen on 05/31/19. Subjective Chief Complaint/HPI Patient is comfortable in no apparent distress on comfort measures only, lethargic, unable to obtained review of systems General: Reports: ROS Unobtainable Objective Physical Examination Neck Exam: Positive: Supple Chest Exam: Positive: Clear to auscultation, Normal air movement Heart Exam: Positive: Rate Normal, Normal S1, Normal S2 Abdomen Exam: Positive: Normal bowel sounds, Soft Assessment /Plan Problems (1) Small cell lung cancer in adult Status: Chronic Problem Text: Mr. Isaac is a 73-year-old male with a past medical history of metastatic lung cancer, diabetes, chronic pancreatitis, and dyslipidemia , was admitted with the diagnosis of acute pain related to his cancer Nancy is comfortable on comfort measures only. All home meds were DC'd Patient's signed comfort measure care status only But she is requesting fingerstick blood sugar with coverage, but no other lab work Continue fingerstick blood sugar with coverage as per 's wishes Hospice consult has been called and is awaiting (2) Comfort measures only status Status: Acute Problem Text: Continue supportive care. Comfort measures only Plan/VTE VTE Prophylaxis Ordered?: No VTE Exclusion Mechanical Proph: Patient/Family Refusal VTE Exclusion Pharmacological: Patient/Family Refusal VS, I&O, 24H, Fishbone Vital Signs/I&O Vital Signs Date Time Temp Pulse Resp B/P (MAP) Pulse Ox O2 Delivery O2 Flow Rate FiO2 05/31/19 01:13 16 05/29/19 21:01 98.3 85 96 05/29/19 21:00 118/59 (78) I&O- Last 24 Hours up to 6 AM 05/31/19 06:00 Intake Total 160 ml Output Total 200 ml Balance -40 ml Laboratory Data 24H LABS Laboratory Tests 2 05/30/19 13:25: Bedside Glucose (Misc Panel) 19*L 05/30/19 14:00: Bedside Glucose (Misc Panel) 75L 05/30/19 18:18: Bedside Glucose (Misc Panel) 80L 05/30/19 23:32: Bedside Glucose (Misc Panel) 91 05/31/19 05:26: Bedside Glucose (Misc Panel) 107 DAYLIN JUSTICE MD May 31, 2019 10:57
[2019-05-31] MEDS ORDERED: CALCIUM CARBONATE 500 MG CHEW U/D PO PRN (23:15)
[2019-05-31] MEDS: ATROPINE SULFATE 1% OP SOLN 2 ML BTL SL PRN (23:43)
[2019-06-01] MEDS: LORazepam 2 MG/ML VIAL (J2060) IV PRN ×7 (03:02→19:03)
[2019-06-01] MEDS: HYDROMORPHONE HCL 0.5 MG/ 0.5 ML SYRINGE (J1170 PER 1) IV PRN ×5 (03:02→21:25)
[2019-06-01] MEDS: ATROPINE SULFATE 1% OP SOLN 2 ML BTL SL PRN ×2 (03:02→06:24)
[2019-06-01] MEDS: HumaLOG INSULIN (NovoLOG) PER UNIT SC SCH ×4 (06:24→17:20)
--- NOTE | 2019-06-01 11:23 | IPNPDOC ---
Subjective Date Seen The patient was seen on 06/01/19. Subjective Chief Complaint/HPI Patient is confused and not verbal, but in no apparent distress General: Denies: ROS Unobtainable, Chills, Night Sweats, Fatigue, Malaise, Normal Appetite, Other Symptoms Constitutional: Denies: Chills, Fever, Malaise, Night Sweats, Weakness, Fatigue, Weight Loss, Lethargy, Other Eyes: Denies: Pain, Vision change, Conjunctivae inflammation, Eyelid inflammation, Redness, Other ENT: Denies: Head Aches, Ear Pain, Dysphagia, Sinus Congestion, Post Nasal Drip, Sore Throat, Epistaxis, Other Symptoms Skin: Denies: Rash, Lesions, Jaundice, Bruising, Itching, Dry, Breakdown, Nail Changes, Other Pulmonary: Denies: Dyspnea, Cough, Pleuritic Chest Pain, Other Symptoms Cardiovascular: Denies: Chest Pain, Palpitations, Orthopnea, Paroxysmal Noc. Dyspnea, Edema, Lt Headedness, Other Symptoms Gastrointestinal: Denies: Nausea, Vomiting, Abdominal Pain, Diarrhea, Constipation, Melena, Hematochezia, Other Symptoms Endocrine: Denies: Polydipsia, Polyphagia, Polyuria, Heat Intolerance, Cold Intolerance, Other Endocrine Sx Musculoskeletal: Denies: Neck Pain, Back Pain, Shoulder Pain, Arm Pain, Hand Pain, Leg Pain, Foot Pain, Joint Pain, Muscle Pain, Spasms, Other Symptoms Objective Physical Examination Neck Exam: Positive: Supple Chest Exam: Positive: Clear to auscultation, Normal air movement Heart Exam: Positive: Rate Normal, Normal S1, Normal S2 Abdomen Exam: Positive: Normal bowel sounds, Soft Skin Exam: Positive: Other skin issue (he has less discoloration of the conjunctivae as well as skin) Assessment /Plan Problems (1) Small cell lung cancer in adult Status: Chronic Problem Text: Mr. Isaac is a 73-year-old male with a past medical history of metastatic lung cancer, diabetes, chronic pancreatitis, and dyslipidemia , was admitted with the diagnosis of acute pain related to his cancer Nancy is comfortable on comfort measures only. All home meds were DC'd Patient's signed comfort measure care status only But she is requesting fingerstick blood sugar with coverage, but no other lab work Continue fingerstick blood sugar with coverage as per 's wishes Hospice consult is still pending Possible discharge home with hospice (2) Comfort measures only status Status: Acute Problem Text: Continue supportive care. Comfort measures only Plan/VTE VTE Prophylaxis Ordered?: No VTE Exclusion Mechanical Proph: Patient/Family Refusal VTE Exclusion Pharmacological: Patient/Family Refusal VS, I&O, 24H, Fishbone Vital Signs/I&O Vital Signs Date Time Temp Pulse Resp B/P (MAP) Pulse Ox O2 Delivery O2 Flow Rate FiO2 06/01/19 09:33 18 05/29/19 21:01 98.3 85 96 05/29/19 21:00 118/59 (78) I&O- Last 24 Hours up to 6 AM 06/01/19 06:00 Intake Total 1230 ml Balance 1230 ml Laboratory Data 24H LABS Laboratory Tests 2 05/31/19 12:13: Bedside Glucose (Misc Panel) 145H 05/31/19 17:12: Bedside Glucose (Misc Panel) 170H 05/31/19 23:31: Bedside Glucose (Misc Panel) 223H 06/01/19 05:39: Bedside Glucose (Misc Panel) 291H DAYLIN JUSTICE MD Jun 01, 2019 11:23
[2019-06-01] MEDS ORDERED: MORPHINE 10MG/0.5ML ORAL CONCENTRATE SOLUTION U/D SL PRN ×2 (12:30→16:30)
[2019-06-01] MEDS ORDERED: MORPHINE 4 MG/ML 1ML VIAL/SYRINGE (J2270) IV PRN (18:15)
[2019-06-02] MEDS: HumaLOG INSULIN (NovoLOG) PER UNIT SC SCH ×5 (00:26→23:13)
[2019-06-02] MEDS: HYDROMORPHONE HCL 0.5 MG/ 0.5 ML SYRINGE (J1170 PER 1) IV PRN ×6 (00:27→19:00)
[2019-06-02] MEDS: LORazepam 2 MG/ML VIAL (J2060) IV PRN ×2 (09:08→12:21)
--- NOTE | 2019-06-02 10:28 | IPNPDOC ---
Subjective Date Seen The patient was seen on 06/02/19. Subjective Chief Complaint/HPI Patient is still a lot of pain, morning when touched. Family requesting more comfort care General: Reports: ROS Unobtainable Objective Physical Examination Chest Exam: Positive: Clear to auscultation, Normal air movement Heart Exam: Positive: Rate Normal, Normal S1, Normal S2 Abdomen Exam: Positive: Normal bowel sounds, Soft Assessment /Plan Problems (1) Small cell lung cancer in adult Status: Chronic Problem Text: Mr. Isaac is a 73-year-old male with a past medical history of metastatic lung cancer, diabetes, chronic pancreatitis, and dyslipidemia , was admitted with the diagnosis of acute pain related to his cancer All home meds were DC'd Patient's signed comfort measure care status only But she is requesting fingerstick blood sugar with coverage, but no other lab work Continue fingerstick blood sugar with coverage as per 's wishes Patient is still in a lot of pain after getting Dilaudid and lorazepam IV as per orders Will increase Dilaudid to 1 mg IV every 2 hours when necessary and lorazepam 2 mg IV every 2 hours when necessary and the pain is still not under control, then will consider starting morphine drip for more comfort care measures. Patient's was at bedside and agrees with the management and plan Official hospice consult is still pending (2) Comfort measures only status Status: Acute Problem Text: Continue supportive care. Comfort measures only Plan/VTE VTE Prophylaxis Ordered?: No VTE Exclusion Mechanical Proph: Patient/Family Refusal VTE Exclusion Pharmacological: Patient/Family Refusal VS, I&O, 24H, Fishbone Vital Signs/I&O Vital Signs Date Time Temp Pulse Resp B/P (MAP) Pulse Ox O2 Delivery O2 Flow Rate FiO2 06/02/19 09:19 16 05/29/19 21:01 98.3 85 96 05/29/19 21:00 118/59 (78) I&O- Last 24 Hours up to 6 AM 06/02/19 06:00 Intake Total 0 ml Balance 0 ml Laboratory Data 24H LABS Laboratory Tests 2 06/01/19 11:39: Bedside Glucose (Misc Panel) 187H 06/02/19 00:15: Bedside Glucose (Misc Panel) 316H 06/02/19 05:58: Bedside Glucose (Misc Panel) 277H DAYLIN JUSTCIE MD Jun 02, 2019 10:28
[2019-06-03] MEDS: HumaLOG INSULIN (NovoLOG) PER UNIT SC SCH
[2019-06-03] MEDS: HYDROMORPHONE HCL 0.5 MG/ 0.5 ML SYRINGE (J1170 PER 1) IV PRN (00:06)
--- NOTE | 2019-06-03 03:42 | DS.PDOC ---
Discharge Summary General Date of Admission Jun 01, 2019 at 12:11 Date of Discharge Jun 03 2019 Primary Care Physician: JERI LEOS MD Attending Physician: DAYLIN JUSTICE MD Discharge Summary PROCEDURES PERFORMED DURING STAY: [None]. ADMITTING DIAGNOSES: 1. Bone Pain 2/2 Metastatic Small Cell Lung CA 2.Comfort Measures Only Status DISCHARGE DIAGNOSES: 1. Suspected cardiac arrest due to metabolic derangements COMPLICATIONS/CHIEF COMPLAINT: Cancer Related Pain. HISTORY OF PRESENT ILLNESS: Per HPI "This is a 79-year-old male with a history of metastatic cancer who who presented with complaints of "terrible" 10 out of 10 in severity left buttock pain that's made worse with movement. He is unable to walk because of the pain. The pain shoots down to his thigh is constant, aching, deep and sharp in nature. He received Dilaudid in the ED which helped a bit; right now the pain is not present unless he moves." HOSPITAL COURSE: He was admitted for management of cancer related pain and transition to comfort measures only. He on June 03 at approximately 2:20 AM. DISCHARGE MEDICATIONS: Please see below. ALLERGIES: Please see below. PHYSICAL EXAMINATION ON DISCHARGE: VITAL SIGNS: Please see below. GENERAL: Unresponsive CARDIOVASCULAR EXAMINATION: No heart sounds RESPIRATORY EXAMINATION: No breath sounds LABORATORY DATA: Accu-Cheks see permanent medical record IMAGING: Not applicable TIME SPENT ON DISCHARGE: Greater approx 15 minutes. Vital Signs/I&Os Vital Signs Date Time Temp Pulse Resp B/P (MAP) Pulse Ox O2 Delivery O2 Flow Rate FiO2 06/02/19 19:00 22 05/29/19 21:01 98.3 85 96 05/29/19 21:00 118/59 (78) I&O- Last 24 Hours up to 6 AM 06/03/19 05:59 Intake Total 0 ml Balance 0 ml Laboratory Data Labs 24H Laboratory Tests 2 06/02/19 05:58: Bedside Glucose (Misc Panel) 277H 06/02/19 11:37: Bedside Glucose (Misc Panel) 255H 06/02/19 17:22: Bedside Glucose (Misc Panel) 300H 06/03/19 00:14: Bedside Glucose (Misc Panel) 304H FSBS Laboratory Tests Test 06/02/19 05:58 06/02/19 11:37 06/02/19 17:22 06/03/19 00:14 Range/Units Bedside Glucose (Misc Panel) 277 255 300 304 83-110 MG/DL Discharge Medications Scheduled Amlodipine Besylate (Amlodipine Besylate) 10 Mg Tablet, 10 MG PO DAILY, (Reported) Ascorbic Acid (Vitamin C) 500 Mg Tab, 500 MG PO DAILY, (Reported) Aspirin (Aspirin EC) 81 Mg Tab, 81 MG PO DAILY, (Reported) Dexamethasone (Decadron) 4 Mg Tablet, 40 MG PO QWEEK Docusate Sodium (Colace) 100 Mg Cap, 1 CAP PO BID Fluticasone Propion/Salmeterol (Advair Hfa 115-21 Mcg Inhaler) 12 Gm Hfa.aer.ad, 2 PUFF INH BID, (Reported) Gabapentin (Gabapentin) 100 Mg Capsule, 100 MG PO DAILY, (Reported) Hydrochlorothiazide (Hydrochlorothiazide) 12.5 Mg Tablet, 12.5 MG PO DAILY Take one tab by mouth daily for 5 days Insulin Glargine,Hum.rec.anlog (Lantus Solostar) 100 Unit/1 Ml Insuln.pen, 15 UNIT SC QHS, (Reported) Insulin Lispro (Humalog) 100 Unit/1 Ml Cartridge, 0 SC ACHS, (Reported) PER SLIDING SCALE Morphine Sulfate (Morphine Sulfate ER) 15 Mg Tablet.er, 15 MG PO BID, (Reported) Multivitamin (Multivitamins) 1 Each Capsule, 1 CAP PO DAILY, (Reported) Pancreatic Enzymes (Creon Dr 12,000 Units Capsule) 1 Ea Capcr, 24,000 UNITS PO WM, (Reported) Potassium Chloride (Potassium Chloride) 20 Meq Tab, 20 MEQ PO DAILY, (Reported) Pravastatin Sodium (Pravastatin Sodium) 20 Mg Tab, 20 MG PO DAILY, (Reported) Umeclidinium [place] (Incruse Ellipta) 62.5 Mcg Blst.w.dev, 1 PUFF INH DAILY, (Reported) Scheduled PRN Albuterol Sulf (Albuterol Sulfate) 2.5 Mg/3 Ml Vial.neb, 2.5 MG INH Q4H PRN for SHORTNESS OF BREATH, (Reported) Albuterol Sulfate (Proair Hfa) 108 Mcg/Act Aer, 2 PUFF INH Q4H PRN for SOB/WHEEZING, (Reported) Hydrocodone/Acetaminophen (Hydrocodone-Acetamin 5-325 mg) 1 Tab Tab, 1 TAB PO BID PRN for PAIN, (Reported) Ondansetron HCl (Ondansetron HCl) 8 Mg Tablet, 8 MG PO Q6H PRN for NAUSEA OR VOMITING Polyethylene Glycol 3350 (Miralax) 1 Pow Pow, 17 GRAM PO DAILY PRN for CONSTI PATION, (Reported) Prochlorperazine Maleate (Prochlorperazine Maleate) 10 Mg Tablet, 10 MG PO Q8HP PRN for NAUSEA OR VOMITING Allergies Coded Allergies: codeine (Verified Adverse Reaction, Intermediate, sweating, dizziness, 05/15/19) DEYSI CAT MD Jun 03, 2019 03:42
== END 2019-06-03 02:30 | disposition expired | DRG 862 ==
LOC: M ED 17:25 → M ED INP 19:13 → M MS5PR 21:30 → OBSVTOIN 06-01 12:11
PROVIDERS: ADMIT Internal Medicine; ATTEND Internal Medicine
DX: Z51.5 Encounter for palliative care (principal); C79.51 Secondary malignant neoplasm of bone; K76.6 Portal hypertension; C78.1 Secondary malignant neoplasm of mediastinum; C79.70 Secondary malignant neoplasm of unspecified adrenal gland; C79.89 Secondary malignant neoplasm of other specified sites; K86.0 Alcohol-induced chronic pancreatitis; C34.90 Malignant neoplasm of unspecified part of unspecified bronchus or lung; I10 Essential (primary) hypertension; E78.5 Hyperlipidemia, unspecified; G89.3 Neoplasm related pain (acute) (chronic); F17.200 Nicotine dependence, unspecified, uncomplicated; Z66 Do not resuscitate; Z90.49 Acquired absence of other specified parts of digestive tract; Z79.82 Long term (current) use of aspirin; Z79.4 Long term (current) use of insulin; Z79.891 Long term (current) use of opiate analgesic; Z79.899 Other long term (current) drug therapy; Z88.5 Allergy status to narcotic agent